=== PATIENT | male | born 1940 | race Caucasian/White ===

== ENCOUNTER → 2017-07-07 11:01 | Outpatient (CLI) | payer MEDICARE, SELFPAY ==
[2017-07-07 12:43] LABS: Absolute Lymphocyte Count 0.74 X10^3/ul (0.83-4.51); Absolute Neutrophil Count 2.1 X10^3/uL (2.0-7.7); Basophil# 0.03 X10^3/uL; Basophil% 0.9 % (0-1); Eosinophil# 0.08 X10^3/uL; Eosinophils% 2.4 % (0-5); Hematocrit 40.7 % (40-54); Hemoglobin 13.5 g/dl (13.0-16.5); Lymphocyte # 0.74 X10^3/ul (4.0); Lymphocyte % 22.2 % (19-41); Mean Corp Hgb Conc 33.2 g/gl (32-36); Mean Corpuscular Volume 93.6 fL (80-94); Mean Platelet Vol. 11.9 fl (6.2-12.0); Monocyte# 0.36 X10^3/uL; Monocyte% 10.8 % (0-10); Neutrophil # 2.12 X10^3/uL (2.7-7.7); Neutrophil % 63.4 % (47-70); Platelet Count 133 K/mm3 (150-450); RBC Distribution Width CV 13.4 % (11.6-14.6); RBC Distribution Width SD 46.1 fl (35.1-43.9); Red Blood Count 4.35 M/mm3 (4.6-6.2); White Blood Count 3.3 K/mm3 (4.4-11.0)
[2017-07-07 12:54] LABS: POSITIVE COUNT NO; POSITIVE DIFFERENTIAL NO
[2017-07-07 12:55] LABS: POSITIVE MORPHOLOGY NO
[2017-07-07 13:17] LABS: Vitamin D,25 Hydroxy 20.3 ng/mL (29.95-100.01)
[2017-07-07 13:23] LABS: ALB/GLOB Ratio 1.3 RATIO (0.9-2.4); AST(SGOT) 22 U/L (15-37); Alanine Aminotransfer ALT/SGPT 32 U/L (16-61); Alkaline Phosphatase 102 U/L (45-117); Anion Gap 8 (5-15); BUN 17 mg/dL (7-18); BUN/Creat Ratio 13.4 RATIO (10-20); Chloride 110 mmol/L (98-107); Creatinine, Serum 1.27 mg/dL (0.70-1.30); EST Glomerular Filtration Rate 58 mL/min (>60); Est Glom Filt Rate - Afr Amer 70 mL/min (>60); Glucose 110 mg/dL (74-106); Potassium 4.1 mmol/L (3.5-5.1); Sodium Level 143 mmol/L (136-145); Thyroid Stim Hormone (TSH) 1.27 uIU/mL (0.358-3.74)
== END ==
PROVIDERS: Family Provider Family Medicine Geriatric Medicine; PCP Family Medicine Geriatric Medicine; Visit Provider Family Medicine Geriatric Medicine
DX: E11.9 Type 2 diabetes mellitus without complications (principal); E55.9 Vitamin D deficiency, unspecified; I10 Essential (primary) hypertension
CPT/HCPCS: 36415; 80053; 82306; 84443; 85025

== ENCOUNTER → 2018-01-05 11:16 | Outpatient (CLI) | payer MEDICARE, SELFPAY ==
[2018-01-05 12:44] LABS: Absolute Lymphocyte Count 0.77 X10^3/ul (0.83-4.51); Absolute Neutrophil Count 2.3 X10^3/uL (2.0-7.7); Basophil# 0.03 X10^3/uL; Basophil% 0.8 % (0-1); Eosinophil# 0.08 X10^3/uL; Eosinophils% 2.2 % (0-5); Hemoglobin 13.8 g/dl (13.0-16.5); Lymphocyte # 0.77 X10^3/ul (4.0); Lymphocyte % 21.3 % (19-41); Mean Corp Hgb Conc 32.9 g/gl (32-36); Mean Corpuscular Hgb 31.7 pg (27.0-32.0); Mean Corpuscular Volume 96.3 fL (80-94); Mean Platelet Vol. 11.7 fl (6.2-12.0); Neutrophil # 2.34 X10^3/uL (2.7-7.7); Neutrophil % 64.7 % (47-70); Platelet Count 144 K/mm3 (150-450); RBC Distribution Width CV 13.4 % (11.6-14.6); RBC Distribution Width SD 47.7 fl (35.1-43.9); Red Blood Count 4.36 M/mm3 (4.6-6.2); White Blood Count 3.6 K/mm3 (4.4-11.0)
[2018-01-05 12:49] LABS: POSITIVE COUNT NO; POSITIVE DIFFERENTIAL NO; POSITIVE MORPHOLOGY NO
[2018-01-05 12:58] LABS: ALB/GLOB Ratio 1.2 RATIO (0.9-2.4); AST(SGOT) 22 U/L (15-37); Alanine Aminotransfer ALT/SGPT 35 U/L (16-61); Albumin, Serum 3.8 g/dL (3.2-5.0); Alkaline Phosphatase 100 U/L (45-117); Anion Gap 10 (5-15); BUN 16 mg/dL (7-18); Calcium,Total 8.8 mg/dL (8.5-10.1); Chloride 107 mmol/L (98-107); Creatinine, Serum 1.23 mg/dL (0.70-1.30); EST Glomerular Filtration Rate 60 mL/min (>60); Est Glom Filt Rate - Afr Amer 73 mL/min (>60); Globulin 3.2 g/dL (2.2-4.2); Glucose 135 mg/dL (74-106); Potassium 4.3 mmol/L (3.5-5.1); Sodium Level 142 mmol/L (136-145); Thyroid Stim Hormone (TSH) 1.59 uIU/mL (0.358-3.74); Uric Acid 3.9 mg/dL (3.5-7.2)
--- OUTSIDE RECORDS SUMMARY | 2018-03-02 19:49 | XMS RPT_ITS ---
:1940 Author Organization OHIP Care Team Providers Name Role Phone LEE HERRERA, DR. GARDINER Attending Unavailable TRAY HERRERA, DR. 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 Tray, Chris Chi Active Brad diabetes mellitus [facility] complications / Repository E11.9(ICD-10) PROCEDURES PROCEDURES No Procedure Records FoundRESULTS RESULTS CBC W/DIFF, AUTOMATED Collected: 01/05/2018 Status: F Source: [place] 11:17 AM [facility] REPOSITORY TYPE CODE TESTS RESULT OUT OF RANGE REFERENCE UNITS LAB L100.1000 4.4-11.0 K/mm3 Low WBC 3.6 LAB L100.1200 4.6-6.2 M/mm3 Low RBC 4.36 LAB L100.1300 13.0-16.5 g/dl Normal HGB 13.8 LAB L100.1400 40-54 % Normal HCT 42.0 LAB L100.1500 80-94 fL High MCV 96.3 LAB L100.1600 27.0-32.0 pg Normal MCH 31.7 LAB L100.1700 32-36 g/gl Normal MCHC 32.9 LAB L100.1810 11.6-14.6 % Normal RDW CV 13.4 LAB L100.1820 35.1-43.9 fl High RDW SD 47.7 LAB L100.1900 150-450 K/mm3 Low PLT 144 LAB L100.2000 6.2-12.0 fl Normal MPV 11.7 LAB L100.2100 47-70 % Normal NEUT% 64.7 LAB L100.2200 19-41 % Normal LY% 21.3 LAB L100.2300 0-10 % High MONO% 11.0 LAB L100.2400 0-5 % Normal EO% 2.2 LAB L100.2500 0-1 % Normal BASO% 0.8 LAB L100.2550 0.0-0.9 % Normal IM GRAN % 0.000 Result Comment: IG% - Immature Granulocytes (promyelocytes, myelocytes and metamyelocytes) > 1% indicates that a LEFT SHIFT is Present. LAB L100.2620 2.0-7.7 X10 3/uL Normal Absolute Neut 2.3 LAB L100.2720 0.83-4.51 X10 3/ul Low Absolute Lymph 0.77 Performed By: #### L100.0100 #### [facility] [address] [place], [place], [address] VITAMIN D,25 HYDROXY Collected: 01/05/2018 Status: F Source: [place] 11:17 [facility] REPOSITORY TYPE CODE TESTS RESULT OUT OF REFERENCE UNITS RANGE LAB L506.1000 29.95-100.01 ng/mL Low Vitamin D 18.0 25-OH Result Comment: Vitamin D 25(OH) Status Range Deficiency <20 ng/mL (50nmol/L) Insuffciency 20 - 30 ng/mL (50 - 75 nmol/L) Sufficiency 30 - 100 ng/mL (75 - 250 nmol/L) Toxicity >100 ng/mL (>250 nmol/L) Performed By: #### L506.1000, L509.3000 #### [facility] [address] [place], [place], [address] TESTOSTERONE, SERUM TOTAL Collected: 01/05/2018 Status: F Source: [place] 11:17 AM [facility] REPOSITORY TYPE CODE TESTS RESULT OUT OF REFERENCE UNITS RANGE LAB L509.3000 ng/dL Testosterone Normal 293.83 Result Comment: NORMAL REFERENCE RANGES MALE AGE <50 123.06 - 813.86 ng/dL MALE AGE >50 89.98 - 780.10 ng/dL FEMALE PREMENOPAUSE AGE 21 - 60 9.01 - 47.94 ng/dL FEMALE POSTMENOPAUSE AGE 45 - 89 <7.00 - 45.62 ng/dL REFERENCE RANGE AND METHODOLOGY CHANGED 01/27/2017 Performed By: #### L506.1000, L509.3000 #### [facility] [address] [place], [address] COMPREHENSIVE METABOLIC Collected: 01/05/2018 Status: F Source: [facility] 11:17 AM [facility] REPOSITORY TYPE CODE TESTS RESULT OUT OF RANGE REFERENCE UNITS LAB L501.0100 74-106 mg/dL High GLU 135 Result Comment: Fasting Glucose result greater than or equal to 126 mg/dL suggests DIABETES MELLITUS per A.D.A. criteria. Please note revised GLUCOSE reference range effective 2017. LAB L501.1000 7-18 mg/dL Normal BUN 16 LAB L501.1100 0.70-1.30 mg/dL Normal CREAT,SERUM 1.23 Result Comment: The validity of the calculated GFR AND GFRAA in patients over 70 years has not been determined. Clinical correlation is essential. LAB L501.1110 >60 mL/min Normal EST GFR 60 Result Comment: Non- GFR Calc LAB L501.1115 >60 mL/min Normal EST GFR - AA 73 Result Comment: GFR Calc LAB L501.1300 10-20 RATIO Normal BUN/CRE 13.0 LAB L501.1500 6.4-8.2 g/dL T Normal PROT 7.0 LAB L501.1800 3.2-5.0 g/dL Normal ALB 3.8 LAB L501.1950 2.2-4.2 g/dL Normal GLOB 3.2 LAB L501.2000 0.9-2.4 RATIO Normal A/G 1.2 LAB L501.2200 8.5-10.1 mg/dL CA Normal 8.8 LAB L501.4100 15-37 U/L Normal AST 22 LAB L501.4305 45-117 U/L Normal ALK P 100 LAB L501.4405 16-61 U/L Normal ALT 35 LAB L501.4600 0.20-1.00 mg/dL T Normal BILI 0.60 LAB L501.5300 136-145 mmol/L NA Normal 142 LAB L501.5600 3.5-5.1 mmol/L K Normal 4.3 LAB L501.5900 98-107 mmol/L CL Normal 107 LAB L501.6100 21.0-32.0 mmol/L Normal CO2 25.0 LAB L501.6200 5-15 Normal GAP 10 Performed By: #### L500.4050, L501.1400, L501.9520 #### [facility] [address] [place], [place], [address] URIC ACID Collected: 01/05/2018 Status: F Source: [place] 11:17 AM [facility] REPOSITORY TYPE CODE TESTS RESULT OUT OF RANGE REFERENCE UNITS LAB L501.1400 3.5-7.2 mg/dL Normal URIC 3.9 Result Comment: The drugs N-Acetylcysteine and Metamizole may falsely depress this assay. Performed By: #### L500.4050, L501.1400, L501.9520 #### [facility] [address] [place], [place], [address] THYROID STIM HORMONE Collected: 01/05/2018 Status: F Source: [place] ([facility]) 11:17 AM [facility] REPOSITORY TYPE CODE TESTS RESULT OUT OF RANGE REFERENCE UNITS LAB L501.9520 0.358-3.74 uIU/mL Normal TSH 1.59 Performed By: #### L500.4050, L501.1400, L501.9520 #### [facility] [address] [place], [place], [address] FINAL SURGICAL Observed: 11/29/2017 Status: F Source: [facility] PATHOLOGY REPORT 11:22 AM [facility] REPOSITORY . Pathology Reports Accession: Collected Date/Time: Received Date/Time: Pathologist: [id number] 11/29/2017 11:22 EDT 11/30/2017 08:29 EDT MD DORIS ADNGELO Final Surgical Pathology Report DIAGNOSIS: A) TRANSVERSE COLON, BIOPSY: TUBULAR ADENOMA. B) COLON, HEPATIC FLEXURE, BIOPSY: TUBULAR ADENOMA. COMMENT: Gisela # [id number] CLINICAL INFORMATION: Procedure: COLONOSCOPY THROUGH STOMA WITH ARGON PLASMA COAGULATION, COLD AND HOT SNARE POLYP BIOPSIES, AND INK TATTOOING HEPATIC FLEXURE Preoperative diagnosis: HISTORY OF TRANSVERSE ADENOMA Postoperative diagnosis: SAME SPECIMEN: A POLYP, COLORECT- POLYPS TRANSVERSE B COLON, BX- BIOPSY HEPATIC FLEXURE - R/O ADENOMA, DYSPLASIA GROSS DESCRIPTION: A. Received in formalin labeled transverse colon polyps are several alberto glistening soft tissues ranging from 0.2-0.6 cm. TS -1 B. Received in formalin labeled hepatic flexure biopsy are several alberto glistening soft tissues ranging from 0.2-0.6 cm. TS -1 Dictated by Anali GALLARDO ([facility]) MICROSCOPIC DESCRIPTION: A&B) Slides reviewed. Electronically Signed by Pathology Report verified by [facility] Electronically signed by DORIS DANGELO MD Sign out Date: 12/01/2017 12:29 Performing Lab: [address] Performed By: #### SPFR #### [place] [address] CBC W/DIFF, AUTOMATED Collected: 07/07/2017 Status: F Source: [place] 11:03 AM [facility] REPOSITORY TYPE CODE TESTS RESULT OUT OF RANGE REFERENCE UNITS LAB L100.1000 4.4-11.0 K/mm3 Low WBC 3.3 LAB L100.1200 4.6-6.2 M/mm3 Low RBC 4.35 LAB L100.1300 13.0-16.5 g/dl Normal HGB 13.5 LAB L100.1400 40-54 % Normal HCT 40.7 LAB L100.1500 80-94 fL Normal MCV 93.6 LAB L100.1600 27.0-32.0 pg Normal MCH 31.0 LAB L100.1700 32-36 g/gl Normal MCHC 33.2 LAB L100.1810 11.6-14.6 % Normal RDW CV 13.4 LAB L100.1820 35.1-43.9 fl High RDW SD 46.1 LAB L100.1900 150-450 K/mm3 Low PLT 133 LAB L100.2000 6.2-12.0 fl Normal MPV 11.9 LAB L100.2100 47-70 % Normal NEUT% 63.4 LAB L100.2200 19-41 % Normal LY% 22.2 LAB L100.2300 0-10 % High MONO% 10.8 LAB L100.2400 0-5 % Normal EO% 2.4 LAB L100.2500 0-1 % Normal BASO% 0.9 LAB L100.2550 0.0-0.9 % Normal IM GRAN % 0.300 Result Comment: IG% - Immature Granulocytes (promyelocytes, myelocytes and metamyelocytes) > 1% indicates that a LEFT SHIFT is Present. LAB L100.2620 2.0-7.7 X10 3/uL Normal Absolute Neut 2.1 LAB L100.2720 0.83-4.51 X10 3/ul Low Absolute Lymph 0.74 Performed By: #### L100.0100 #### [facility] [address] [place], [place], [address] VITAMIN D,25 HYDROXY Collected: 07/07/2017 Status: F Source: [place] 11:03 [facility] REPOSITORY TYPE CODE TESTS RESULT OUT OF REFERENCE UNITS RANGE LAB L506.1000 29.95-100.01 ng/mL Low Vitamin D 20.3 25-OH Result Comment: Vitamin D 25(OH) Status Range Deficiency <20 ng/mL (50nmol/L) Insuffciency 20 - 30 ng/mL (50 - 75 nmol/L) Sufficiency 30 - 100 ng/mL (75 - 250 nmol/L) Toxicity >100 ng/mL (>250 nmol/L) Performed By: #### L506.1000 #### [facility] [address] [place], [address] COMPREHENSIVE METABOLIC Collected: 07/07/2017 Status: F Source: [facility] 11:03 AM [facility] REPOSITORY TYPE CODE TESTS RESULT OUT OF RANGE REFERENCE UNITS LAB L501.0100 74-106 mg/dL High GLU 110 Result Comment: Fasting Glucose result from 100 to 125 mg/dL suggests IMPAIRED HOMEOSTASIS per A.D.A. criteria. Please note revised GLUCOSE reference range effective 2017. LAB L501.1000 7-18 mg/dL Normal BUN 17 LAB L501.1100 0.70-1.30 mg/dL Normal CREAT,SERUM 1.27 Result Comment: The validity of the calculated GFR AND GFRAA in patients over 70 years has not been determined. Clinical correlation is essential. LAB L501.1110 >60 mL/min Low EST GFR 58 Result Comment: Non- GFR Calc LAB L501.1115 >60 mL/min Normal EST GFR - AA 70 Result Comment: GFR Calc LAB L501.1300 10-20 RATIO Normal BUN/CRE 13.4 LAB L501.1500 6.4-8.2 g/dL T Normal PROT 7.0 LAB L501.1800 3.2-5.0 g/dL Normal ALB 4.0 LAB L501.1950 2.2-4.2 g/dL Normal GLOB 3.0 LAB L501.2000 0.9-2.4 RATIO Normal A/G 1.3 LAB L501.2200 8.5-10.1 mg/dL CA Normal 9.0 LAB L501.4100 15-37 U/L Normal AST 22 LAB L501.4305 45-117 U/L Normal ALK P 102 LAB L501.4405 16-61 U/L Normal ALT 32 LAB L501.4600 0.20-1.00 mg/dL T Normal BILI 0.60 LAB L501.5300 136-145 mmol/L NA Normal 143 LAB L501.5600 3.5-5.1 mmol/L K Normal 4.1 LAB L501.5900 98-107 mmol/L High CL 110 LAB L501.6100 21.0-32.0 mmol/L Normal CO2 25.0 LAB L501.6200 5-15 Normal GAP 8 Performed By: #### L500.4050, L501.9520 #### [facility] [address] [place], [place], [id number] THYROID STIM HORMONE Collected: 07/07/2017 Status: F Source: [place] ([facility]) 11:03 AM [facility] REPOSITORY TYPE CODE TESTS RESULT OUT OF RANGE REFERENCE UNITS LAB L501.9520 0.358-3.74 uIU/mL Normal TSH 1.27 Performed By: #### L500.4050, L501.9520 #### [facility] [address] [place], [address] ALLERGIES ALLERGIES No Allergies Records FoundENCOUNTERS ENCOUNTERS ADMIT/DISCHARGE ACCOUNT NUMBER ADMITTING ENCOUNTER LOCATION SOURCE CLASS 01/05/2018 [id number] Ambulatory [facility] ding:[id number] Repository 11/29/2017/11/30/19 [id number] Ambulatory BBuilding:[address] Repository 07/07/2017 [id number] Ambulatory [facility] ding:[id number] Repository PAYERS PAYERS ENCOUNTER GUARANTOR PAYER SUBSCRIBER SOURCE 01/05/2018 HARSH Akhtar Primary [place]SH [place] [id number] Insurance:AETNA MUSCHDOB: [facility] [place]: [id number] [id number] Repository [address]Izl: [phone]) Date:[id number] [phone] () [id number] LEILA ORR [id number]: 01/05/2018 [facility]LF [facility] Number: Effective Repository Date:2018-01-05 11/29/2017 HARSH MUSCHDOB: [facility] [id number] W Insurance:AETNA [id number] Foundation [facility] [address] [employer] HMO [address] [place], [place] AMEPolicy Number: [place], [place] [address]Dgk: 419 [id number]: () Date:2017-11-02 [phone] ()Tel: ([phone]) Name:[facility] [id number] [id number] () LE[place] [id number]: 07/07/2017 HARSH Akhtar Primary HARSH [place] [id number] Insurance:AETNA MUSCHDOB: [facility] Number: [id number] [place], [place] [id number] Repository [id number]: ([phone]) Date:[id number] [phone] ([place]) [id number] LEILA ORR [id number]: 07/07/2017 Secondary NOT GIVENUNK [place] Insurance:SELF PAY [facility] Number: Effective Repository Date:2017-07-07
== END ==
PROVIDERS: Family Provider Family Medicine Geriatric Medicine; PCP Family Medicine Geriatric Medicine; Visit Provider Family Medicine Geriatric Medicine
DX: E11.9 Type 2 diabetes mellitus without complications (principal); I10 Essential (primary) hypertension; E55.9 Vitamin D deficiency, unspecified; E23.6 Other disorders of pituitary gland; M10.9 Gout, unspecified
CPT/HCPCS: 36415; 80053; 82306; 84403; 84443; 84550; 85025

== ENCOUNTER → 2018-07-11 08:49 | Outpatient (CLI) | payer MEDICARE, SELFPAY ==
[2018-07-11 12:35] LABS: Absolute Lymphocyte Count 0.96 X10^3/ul (0.83-4.51); Absolute Neutrophil Count 2.3 X10^3/uL (2.0-7.7); Basophil# 0.03 X10^3/uL; Basophil% 0.8 % (0-1); Eosinophil# 0.11 X10^3/uL; Eosinophils% 2.9 % (0-5); Hematocrit 41.4 % (40-54); Lymphocyte # 0.96 X10^3/ul (4.0); Mean Corp Hgb Conc 33.8 g/gl (32-36); Mean Corpuscular Volume 91.6 fL (80-94); Monocyte# 0.45 X10^3/uL; Monocyte% 11.7 % (0-10); Neutrophil # 2.29 X10^3/uL (2.7-7.7); Neutrophil % 59.6 % (47-70); Platelet Count 141 K/mm3 (150-450); RBC Distribution Width CV 14.4 % (11.6-14.6); RBC Distribution Width SD 47.2 fl (35.1-43.9); Red Blood Count 4.52 M/mm3 (4.6-6.2); White Blood Count 3.8 K/mm3 (4.4-11.0)
[2018-07-11 12:47] LABS: POSITIVE COUNT NO; POSITIVE DIFFERENTIAL NO; POSITIVE MORPHOLOGY NO
[2018-07-11 12:57] LABS: Vitamin D,25 Hydroxy 18.2 ng/mL (29.95-100.01)
[2018-07-11 13:06] LABS: ALB/GLOB Ratio 1.2 RATIO (0.9-2.4); AST(SGOT) 23 U/L (15-37); Alanine Aminotransfer ALT/SGPT 38 U/L (16-61); Albumin, Serum 3.8 g/dL (3.2-5.0); Alkaline Phosphatase 99 U/L (45-117); Anion Gap 11 (5-15); BUN 17 mg/dL (7-18); BUN/Creat Ratio 13.8 RATIO (10-20); Calcium,Total 8.9 mg/dL (8.5-10.1); Chloride 107 mmol/L (98-107); Creatinine, Serum 1.23 mg/dL (0.70-1.30); EST Glomerular Filtration Rate 60 mL/min (>60); Est Glom Filt Rate - Afr Amer 73 mL/min (>60); Globulin 3.1 g/dL (2.2-4.2); Glucose 126 mg/dL (74-106); Potassium 3.9 mmol/L (3.5-5.1); Protein, Total 6.9 g/dL (6.4-8.2); Sodium Level 141 mmol/L (136-145)
== END ==
PROVIDERS: Family Provider Family Medicine Geriatric Medicine; PCP Family Medicine Geriatric Medicine; Visit Provider Family Medicine Geriatric Medicine
DX: E11.9 Type 2 diabetes mellitus without complications (principal); I10 Essential (primary) hypertension; E55.9 Vitamin D deficiency, unspecified
CPT/HCPCS: 36415; 80053; 82306; 84443; 85025

== ENCOUNTER 2018-10-01 21:06 | Emergency (ER) | payer MEDICARE, SELFPAY ==
[2018-10-01 21:07] VITALS: BP 165/108; PULSE 81; RESP 20; TEMP 36.4; O2SAT 95; BMI 31.6
--- NOTE | 2018-10-01 21:28 | RAD_ITS ---
STUDY: X-RAY - LEFT WRIST REASON FOR EXAM: Male, 78 years old. Fall and pain TECHNIQUE: 3 view(s) of the wrist were obtained. COMPARISON: None. FINDINGS: Comminuted intra-articular fracture of the distal radius. Fracture of the ulnar styloid. Soft tissue swelling. Carpal rows are normally aligned. RAD/Wrist min 3 Views IMPRESSION: Comminuted intra-articular fracture of the distal radius. Fracture of the ulnar styloid. Electronically Signed: Luis Miguel Garcia MD at 21:46 EDT Tel , Service support ,
--- NOTE | 2018-10-01 21:28 | ED.DCSUM_ITS ---
History of Present Illness Chief Complaint: Fall Detail of Chief Complaint: Left side of body hurts Informant: Patient - Fell September 28Wednesday. Context: Sudden Onset Timing: Continuous Quality: Pain Location: Left upper extremity predominantly Current Severity: Mild Maximum Severity: Moderate Worsened by: Use of left upper extremity Relieved by: Nothing Associated Symptoms: No associated symptoms Narrative: Patient is an elderly male who fell down to cement steps going into his garage. He landed on his left side. He presents today because the ibuprofen is not alleviating the pain. He did have head trauma. He denies loss of conscious. Denies headache. He denies nausea vomiting. Denies neck pain. He denies paresthesia, anesthesia motor he is on no anticoagulant. He denies cardiac respiratory symptoms. He denies hematemesis, melena hematochezia. He denies change in color his urine. He states his left upper extremity is now black and blue. He first noted it today. He also complained of left wrist pain when I palpated his left upper extremity. He was unaware that he has a deformity to his left wrist. Prior similar symptoms: No Recent Illness/Hospitalization: No - Past Medical History (1) Elevated blood pressure reading Status: Acute Past Medical History - Allergies and Home Meds Allergies/Adverse Reactions: Allergies Tetanus Vaccines and Toxoid Allergy (Verified 10/01/18 21:07) Angioedema Primary Care Physician: Chris Feliz Chi, MD [Primary Care Provider] - Prior records reviewed: Yes Surgical History: no surgical history, tonsillectomy colectomy Lives: Alone Smoking Status: Former smoker Alcohol: None Drugs: None Review of Systems General: Denies: Chills, Fever, Malaise, Subjective, Sweats Eyes: Denies: Visual changes - bilaterally, Blurred Vision - bilaterally, D iplopia ENT: Denies: Bilateral ear pain, Rhinorrhea Cardiovascular: Denies: Chest pain, Palpitations Respiratory: Denies: Dyspnea, Cough, Sputum, Dyspnea on exertion Gastrointestinal: Denies: Abdominal pain, Nausea, Vomiting, Diarrhea, Constipation, Melena, Hematochezia Genitourinary: Denies: Dysuria, Hematuria, Frequency Musculoskeletal: Reports: Swelling, Extremity Pain. Denies: Myalgias, Arthralgias, Neck pain, Back pain, -, - Skin: Denies: Rash, Wounds Neurological: Denies: Headache, Weakness, Numbness Hematologic: Reports: Easy bruising, Easy bleeding Allergy: Reports: Uticaria, Swelling of the mouth Physical Exam Vital Signs/Narrative: Vital Signs Temp Pulse Resp BP Pulse Ox 10/01/18 21:07 97.6 F L 81 20 H 165/108 H 95 Inital Vital Signs reviewed: Yes General: Well nourished, Well developed, No Acute Distress Head: Normocephalic, Trauma, Tenderness - Superior lateral left eyebrow Eyes: Perrl, EOMI, - - Subconjunctival hemorrhage noted. There is periorbital ecchymosis.. Negative for: Pale conjunctiva, Scleral icterus ENT: Moist mucous membranes, No rhinorrhea, TM's clear Neck: Supple, Nontender, No lymphadenopathy, No JVD, - - No cervical spine tenderness and full active range of motion without discomfort or hesitation. Cardiovascular: Regular rate, Regular rhythm, No murmurs, Normal S1, Normal S2 Respiratory: No distress, CTA bilaterally, Chest nontender Abdomen: Soft, Nontender, Nondistended, Normal bowel sounds Back: Nontender, Normal Inspection Extremities: Nontender, No edema Skin: Normal color, No rash, Trauma. Negative for: Cyanosis, Diaphoresis, Leandro dice Neurological: Alert, Oriented x3, Cranial nerves II-XII grossly intact, Normal Strength, Normal Sensation, Normal DTR Psychological: Normal affect, Normal Mood Diagnostic/Tx/Re-eval Chest X-Ray - ED: Read by ED Physician, - - Three-view x-ray of the left wrist not right as marked by the tach reveals a distal transverse comminuted radial fracture with involvement of the ulnar styloid. There is 10 degrees of volar apex angulation. - Medical Decision Making Since patient had no loss of consciousness, is on no anticoagulant and the fact is happened 72 hours ago imaging of the brain was not obtained. C-spine was cleared per Nexus criteria. Since patient has pain and deformity of the left wrist will obtain x-ray to evaluate for fracture. Reduction film reveals good length and alignment on the AP view. Lateral appears in neutral position. Oblique shows a fragment ulnarly which appears displaced. Contacted Dr. virgil dowell is on-call for orthopedics. Requested patient to contact office for follow-up and will determine if patient needs operative intervention. Procedures - Lower Extremity Splints Lower Extremity Splint: Plaster, - - AP short arm splint applied by de Splint Fabrication: Fabricated Location: Left Procedure(s): Patient had a hematoma block placed. He was placed in finger traps and weight was added slowly. He appeared to have good length. He was removed from finger traps. Reduction was undertaken. Patient was placed in a short arm plaster AP splint. Postoperative films were obtained. ED Disposition - Plan for ED Patient: Disposition: Home or Assisted Living Diagnosis: Colles' fracture of left radius, initial encounter for closed fracture, Simple laceration of face Instructions: COLLES FRACTURE, Reduction Required, LACERATION, Old - Not Sutured Prescriptions: Hydrocodone Bitart/Apap 5-325 [Chualar 5MG-325MG] 1 tab PO Q6H PRN PRN 3 Days #10 tab PRN Reason: Pain Prescription Printed Referrals: Chris Feliz Chi, MD [Primary Care Provider] - Kwaku Vallejo DO [STAFF PHYSICIAN] - 3-5 Days Additional Instructions: Must keep wrist elevated above nose. Apply ice 20 to 30 minutes per application 6-8 times a day. Keep splint absolutely clean and dry. Contact Dr. virgil dowell's office on Wednesday to be seen. You may require surgery.
[2018-10-01] MEDS: HYDROcodone Bitartrate/Apap 5/325 Tablet PO (21:48)
--- NOTE | 2018-10-01 23:26 | RAD_ITS ---
HISTORY: LEFT wrist reduction XR Wrist Min 3 Views TECHNIQUE: 3 views # of images incl. paperwork: 4 COMPARISON: Prereduction exam 10/01/2018 at 9:31 PM FINDINGS: BONES/JOINTS: Post reduction film demonstrates no significant improvement of the alignment of comminuted distal radial fracture with displacement and dorsal angulation. Mildly displaced ulnar styloid process fracture is also unchanged. SOFT TISSUES: Plaster cast in place. No radiopaque foreign body. RAD/Wrist min 3 Views IMPRESSION: 1. Status post reduction without significant improved alignment of the comminuted distal radial fracture. at 0000 Reported and signed by: Kwaku Sharma MD Electronically Signed: Kwaku Sharma MD at 23:59 EDT Tel , Service support ,
[2018-10-02 00:01] VITALS: BP 166/75; PULSE 63; RESP 18; O2SAT 97
== END 2018-10-02 00:02 | disposition home or self-care (01) ==
PROVIDERS: Emergency Provider Emergency Medicine; Family Provider Family Medicine Geriatric Medicine; PCP Family Medicine Geriatric Medicine
DX: S52.532A Colles' fracture of left radius, initial encounter for closed fracture (principal); S52.612A Displaced fracture of left ulna styloid process, initial encounter for closed fracture; S01.81XA Laceration without foreign body of other part of head, initial encounter; S05.12XA Contusion of eyeball and orbital tissues, left eye, initial encounter; S05.11XA Contusion of eyeball and orbital tissues, right eye, initial encounter; H11.33 Conjunctival hemorrhage, bilateral; Z79.899 Other long term (current) drug therapy; W10.9XXA Fall (on) (from) unspecified stairs and steps, initial encounter; Y93.9 Activity, unspecified; Y92.008 Other place in unspecified non-institutional (private) residence as the place of occurrence of the external cause; Y99.9 Unspecified external cause status; R03.0 Elevated blood-pressure reading, without diagnosis of hypertension; Z87.891 Personal history of nicotine dependence
CPT/HCPCS: 25605; 73110; 99283

== ENCOUNTER → 2019-01-09 11:46 | Outpatient (CLI) | payer MEDICARE, SELFPAY ==
[2019-01-09 12:43] LABS: Absolute Neutrophil Count 2.3 X10^3/uL (2.0-7.7); Basophil# 0.03 X10^3/uL; Basophil% 0.8 % (0-1); Eosinophil# 0.22 X10^3/uL; Eosinophils% 5.6 % (0-5); Hematocrit 40.7 % (40-54); Hemoglobin 13.6 g/dL (13.0-16.5); Mean Corp Hgb Conc 33.4 g/dL (32-36); Mean Corpuscular Hgb 31.3 pg (27.0-32.0); Mean Corpuscular Volume 93.8 fL (80-94); Mean Platelet Vol. 11.9 fl (6.2-12.0); Monocyte# 0.47 X10^3/uL; NRBC Flagged by Analyzer 0 % (0-5); Neutrophil # 2.28 X10^3/uL (2.7-7.7); Neutrophil % 58.1 % (47-70); Platelet Count 138 K/mm3 (150-450); RBC Distribution Width CV 13.6 % (11.6-14.6); RBC Distribution Width SD 46.9 fl (35.1-43.9); Red Blood Count 4.34 M/mm3 (4.6-6.2); White Blood Count 3.9 K/mm3 (4.4-11.0)
[2019-01-09 13:03] LABS: ALB/GLOB Ratio 1.4 RATIO (0.9-2.4); AST(SGOT) 18 U/L (15-37); Alanine Aminotransfer ALT/SGPT 34 U/L (16-61); Albumin, Serum 3.8 g/dL (3.2-5.0); Alkaline Phosphatase 105 U/L (45-117); Anion Gap 8 (5-15); BUN 22 mg/dL (7-18); BUN/Creat Ratio 16.8 RATIO (10-20); Chloride 110 mmol/L (98-107); Creatinine, Serum 1.31 mg/dL (0.70-1.30); EST Glomerular Filtration Rate 56 mL/min (>60); Est Glom Filt Rate - Afr Amer 68 mL/min (>60); Globulin 2.8 g/dL (2.2-4.2); Glucose 130 mg/dL (74-106); Protein, Total 6.6 g/dL (6.4-8.2); Sodium Level 141 mmol/L (136-145); Thyroid Stim Hormone (TSH) 2.35 uIU/mL (0.358-3.74); Uric Acid 4.5 mg/dL (3.5-7.2)
[2019-01-10 14:55] LABS: Vitamin D,25 Hydroxy 24.4 ng/mL (29.95-100.01)
== END ==
PROVIDERS: Family Provider Family Medicine Geriatric Medicine; PCP Family Medicine Geriatric Medicine; Visit Provider Family Medicine Geriatric Medicine
DX: E11.9 Type 2 diabetes mellitus without complications (principal); I10 Essential (primary) hypertension; M10.9 Gout, unspecified; E55.9 Vitamin D deficiency, unspecified; F52.8 Other sexual dysfunction not due to a substance or known physiological condition
CPT/HCPCS: 36415; 80053; 82306; 84403; 84443; 84550; 85025

== ENCOUNTER 2019-01-25 10:00 | Outpatient (RCR) | payer MEDICARE, SELFPAY ==
--- NOTE | 2018-12-08 15:51 | HP.OTEVAL_ITS ---
Patient's Visit Information HARSH DIAZ is a 78 year old M, referred to Occupational Therapy by Kwaku Vallejo DO, with a diagnosis of left wrist distal radius fx. Date of Evaluation: 12/07/18 Occupational Therapist: THERESA Arana/Ilda, CHT - Subjective Subjective: This 78 year old male was seen for OT eval following a left wrist fx. pt states he sufferd a fall on 10/01/18. states he was casted and given wrist brace on 11/30/18. Pt reports he has not removed brace off his left wrist. He is worried about what he can and can not do- pt reports he is limited with ADls and IADls at this time. - ADLs Dressing: Pants Fasteners: Tie shoes, Buttons, Zippers, [place], Belt Bathing: Handle washcloth & soap Kitchen: Open jars, Open bottle caps - Pain left wrist 2 Pain Intensity Range: 1, 5 - ROM Forearm: right 60 left 40 Wrist: right 65/45 left 35/25 ROM Comments: pt demo 1 away from composite fist . 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 Pt will demo an increase in lateral and tripod pinch by 4# to increase pts independent with opening baggies, containers at PLOF by D/C. Goal:: Pt will demo left wrist flexion,extension ROM by 30* to increase pts ind. with ADls and IADLS by d/c Goal:: pt will report pain no greater than 1/10 with use of left UE with ADls and IADLS by d/c - Rehabilitation General Assessment: pt demo with limited functional left wrist ROM and strength- pt would benefit from skilled OT services 1-2x week for 6 weeks to return pt to PLOF with ADLs and IADLS. Today pt was ed.on use of left wist brace use,donning,and doffing. Pt also ed. on finger ROM tendon glide, wrist short arch AROM, therapy will progress pt as oren. with ROM and strength. pt was given handout on HEP and agree to POC. Rehabilitation Potential: Good - Anticipated Interventions Anticipated Interventions: A/AAROM/PROM, Strengthening, Triggerpoint Release, Modalities, Joint Protection/Energy Conservation, Ergonomic Education - Visit Plan Frequency: 1-2x /Week Duration: 6 Weeks TEXT: Thank you for the opportunity to evaluate your patient. For Medicare and Medicare HMO plans, please review the plan of care and approve it. It will need to be FAXED BACK to us at [phone] for Medicare purposes. Please let me know if there are questions or concerns regarding this plan of care. Physician Signature: Date:
--- NOTE | 2019-01-11 10:32 | OTREVAL_ITS ---
Kwaku Vallejo, DO, It has been my pleasure to treat HARSH DIAZ over the last 6 visits for left wrist distal radius fx. Please see the progress note below for an update on the occupational therapy plan of care! 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 Objective/Function: left 50/30. left forearm supination 55*right is 60*. pt demo the ability to form a composite fist. left electro mechanical solar technician strength 45#. left lateral pinch 18# a increase from 14# left tripod pinch 15# a increase from 10# Plan Frequency: 1-2x /Week Duration: 3 Weeks Plan: cont with BTE to increase pts strength-. right electro mechanical solar technician is 100# left is 45# Goals - Goals Goal:: PT will demo an increase in electro mechanical solar technician strength by 30# to increase independent with basic occupations of daily living to return pt to PLOF by D/C. Pt will demo an increase in lateral and tripod pinch by 4# to increase pts independent with opening baggies, containers at PLOF by D/C. Goal:: Pt will demo left wrist flexion,extension ROM by 30* to increase pts ind. with ADls and IADLS by d/c Goal:: pt will report pain no greater than 1/10 with use of left UE with ADls and IADLS by d/c Anticipated Interventions Anticipated Interventions: A/AAROM/PROM, Strengthening, Triggerpoint Release, Modalities, Joint Protection/Energy Conservation, Ergonomic Education Please do not hesitate to contact me at [phone] by phone or if you have questions or concerns regarding this new plan of care! Sincerely, Raiza Stone, OTR/L, CHT
--- NOTE | 2019-01-25 10:30 | HP.OTDCSUM ---
HP - OT D/C Summary It has been my pleasure to treat HARSH DIAZ under orders from Kwaku Vallejo DO, for the diagnosis of left wrist distal radius fx for a total of 10 visit(s). Please see the following information for a summary of their discharge status. - Overall Improvement % Improvement: 85 - Objective Objective/Function: pt demo a increase in left hospitalist physician strength from 15# to 55#. left lateral pinch 14#. left tripod pinch 14#. left wrist 45/30. pt demo left forearm supination at 70*. pt demo understanding of his HEP and agree to D/C with cont. his ROM, ice and PRE as needed. - Goals Patient Goals: Regain Mobility, Regain Strength, Decrease Pain, Use Hand/Wrist/Arm Normally Again, Be More Independent in ADLS Goal:: PT will demo an increase in hospitalist physician strength by 30# to increase independent with basic occupations of daily living to return pt to PLOF by D/C. Pt will demo an increase in lateral and tripod pinch by 4# to increase pts independent with opening baggies, containers at PLOF by D/C. Goal:: Pt will demo left wrist flexion,extension ROM by 30* to increase pts ind. with ADls and IADLS by d/c Goal:: pt will report pain no greater than 1/10 with use of left UE with ADls and IADLS by d/c - Plan Plan: D/C - D/C Information Discharge Comments: pt was seen for 10 OT visits- to regain ROM and strength for ADLs and IADS. Pt has met goals in OT and will cont. with HEP of edema mtg, ROM and his PRE. If there are questions or concerns regarding this patient's occupational therapy, please fell free to call me at [phone]. Thank you for the referral of this patient. Sincerely, Raiza Stone, OTR/L, CHT
== END 2019-01-25 19:00 | disposition home or self-care (01) ==
LOC: OT 10:00
PROVIDERS: Family Provider Family Medicine Geriatric Medicine; PCP Family Medicine Geriatric Medicine; Referring Provider Orthopaedic Surgery; Visit Provider Orthopaedic Surgery
DX: S52.612D Displaced fracture of left ulna styloid process, subsequent encounter for closed fracture with routine healing (principal)
CPT/HCPCS: 97035; 97110; 97140; 97166; 97530

== ENCOUNTER → 2019-07-13 11:31 | Outpatient (CLI) | payer MEDICARE, SELFPAY ==
[2019-07-13 12:41] LABS: Absolute Lymphocyte Count 1.11 X10^3/uL (0.83-4.51); Basophil# 0.04 X10^3/uL; Eosinophil# 0.12 X10^3/uL; Eosinophils% 3.1 % (0-5); Hematocrit 40.5 % (40-54); Hemoglobin 13.6 g/dL (13.0-16.5); Lymphocyte # 1.11 X10^3/ul (4.0); Lymphocyte % 28.6 % (19-41); Mean Corp Hgb Conc 33.6 g/dL (32-36); Mean Corpuscular Hgb 32.7 pg (27.0-32.0); Mean Corpuscular Volume 97.4 fL (80-94); Mean Platelet Vol. 12.5 fl (6.2-12.0); Monocyte# 0.56 X10^3/uL; Monocyte% 14.4 % (0-10); NRBC Flagged by Analyzer 0 % (0-5); Neutrophil # 2.04 X10^3/uL (2.7-7.7); Neutrophil % 52.6 % (47-70); Platelet Count 139 K/mm3 (150-450); RBC Distribution Width CV 13.3 % (11.6-14.6); RBC Distribution Width SD 47.9 fl (35.1-43.9); Red Blood Count 4.16 M/mm3 (4.6-6.2); White Blood Count 3.9 K/mm3 (4.4-11.0)
[2019-07-13 12:58] LABS: Vitamin D,25 Hydroxy 18.6 ng/mL
[2019-07-13 13:02] LABS: ALB/GLOB Ratio 1.3 RATIO (0.9-2.4); AST(SGOT) 27 U/L (15-37); Alanine Aminotransfer ALT/SGPT 33 U/L (16-61); Albumin, Serum 3.9 g/dL (3.2-5.0); Alkaline Phosphatase 96 U/L (45-117); Anion Gap 10 (5-15); BUN 15 mg/dL (7-18); BUN/Creat Ratio 11.2 RATIO (10-20); Calcium,Total 8.9 mg/dL (8.5-10.1); Chloride 109 mmol/L (98-107); Creatinine, Serum 1.34 mg/dL (0.70-1.30); EST Glomerular Filtration Rate 54 mL/min (>60); Est Glom Filt Rate - Afr Amer 66 mL/min (>60); Globulin 3.1 g/dL (2.2-4.2); Glucose 123 mg/dL (74-106); Potassium 3.7 mmol/L (3.5-5.1); Sodium Level 143 mmol/L (136-145); Thyroid Stim Hormone (TSH) 2.18 uIU/mL (0.358-3.74); Uric Acid 4.7 mg/dL (3.5-7.2)
== END ==
PROVIDERS: PCP Family Medicine Geriatric Medicine; Visit Provider Family Medicine Geriatric Medicine
DX: E11.9 Type 2 diabetes mellitus without complications (principal); E23.6 Other disorders of pituitary gland; E55.9 Vitamin D deficiency, unspecified; I10 Essential (primary) hypertension; M10.9 Gout, unspecified
CPT/HCPCS: 36415; 80053; 82306; 84403; 84443; 84550; 85025

== ENCOUNTER → 2020-01-11 10:18 | Outpatient (CLI) | payer MEDICARE, SELFPAY ==
[2020-01-11 12:46] LABS: Absolute Lymphocyte Count 0.79 X10^3/uL (0.83-4.51); Basophil# 0.03 X10^3/uL; Basophil% 0.9 % (0-1); Eosinophils% 2.9 % (0-5); Hematocrit 41.9 % (40-54); Hemoglobin 13.7 g/dL (13.0-16.5); Lymphocyte # 0.79 X10^3/ul (4.0); Mean Corp Hgb Conc 32.7 g/dL (32-36); Mean Corpuscular Hgb 32.1 pg (27.0-32.0); Mean Corpuscular Volume 98.1 fL (80-94); Mean Platelet Vol. 12.4 fl (6.2-12.0); Monocyte# 0.51 X10^3/uL; Monocyte% 14.8 % (0-10); NRBC Flagged by Analyzer 0 % (0-5); Neutrophil % 58.1 % (47-70); Platelet Count 128 K/mm3 (150-450); RBC Distribution Width CV 13.2 % (11.6-14.6); RBC Distribution Width SD 47.1 fl (35.1-43.9); Red Blood Count 4.27 M/mm3 (4.6-6.2); White Blood Count 3.4 K/mm3 (4.4-11.0)
[2020-01-11 13:09] LABS: Vitamin D,25 Hydroxy 15.2 ng/mL
[2020-01-11 13:16] LABS: ALB/GLOB Ratio 1.2 RATIO (0.9-2.4); AST(SGOT) 22 U/L (15-37); Alanine Aminotransfer ALT/SGPT 37 U/L (16-61); Albumin, Serum 3.9 g/dL (3.2-5.0); Alkaline Phosphatase 114 U/L (45-117); Anion Gap 5 (5-15); BUN 14 mg/dL (7-18); BUN/Creat Ratio 11.9 RATIO (10-20); Chloride 108 mmol/L (98-107); Creatinine, Serum 1.18 mg/dL (0.70-1.30); EST Glomerular Filtration Rate 63 mL/min (>60); Est Glom Filt Rate - Afr Amer 76 mL/min (>60); Globulin 3.3 g/dL (2.2-4.2); Glucose 110 mg/dL (74-106); Potassium 3.7 mmol/L (3.5-5.1); Protein, Total 7.2 g/dL (6.4-8.2); Sodium Level 140 mmol/L (136-145); Thyroid Stim Hormone (TSH) 2.44 uIU/mL (0.358-3.74); Uric Acid 4.1 mg/dL (3.5-7.2)
== END ==
PROVIDERS: PCP Family Medicine Geriatric Medicine; Visit Provider Family Medicine Geriatric Medicine
DX: E11.9 Type 2 diabetes mellitus without complications (principal); E23.6 Other disorders of pituitary gland; E55.9 Vitamin D deficiency, unspecified; I10 Essential (primary) hypertension; M10.9 Gout, unspecified
CPT/HCPCS: 36415; 80053; 82306; 84403; 84443; 84550; 85025

== ENCOUNTER 2020-07-09 20:16 | Emergency (ER) | payer MEDICARE, SELFPAY ==
[2020-07-09 20:17] VITALS: BP 191/115; PULSE 106; RESP 16; TEMP 36.3; O2SAT 98; BMI 31.6
--- NOTE | 2020-07-09 21:23 | CT_ITS ---
HISTORY: Abdominal pain -- IV PO Contrast TECHNIQUE: Helically acquired images were obtained of the abdomen and pelvis following the intravenous administration of 100 ML of Isovue-370 Iodinated contrast. After a delay contiguous helical images were obtained from above the kidneys to the pubic symphysis. 2D reformats. Gastrografin oral contrast was administered. A radiation dose optimization technique was used for this scan. COMPARISON: X-ray of the abdomen from November 26, 2010. CT scan of the abdomen and pelvis from November 15, 2010. FINDINGS: # of images incl. paperwork: [id number] LUNG BASES: Trace age-related basilar fibrotic lung disease. Some coronary artery calcific ASCVD. CT abdomen: The stomach is distended with ingested contrast. Multilevel degenerative disc disease with facet arthropathy. Pseudoarticulation of several of the spinous processes within the upper and mid lumbar spine. If this disease is symptomatic, then it has been termed [place]'s disease. 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 Sacroiliac joint arthritis The gallbladder is distended. Liver, spleen, pancreas, and adrenal glands, are normal. The kidneys are normal. The aorta is severely diseased with atherosclerotic plaque. The severity of the disease within the abdominal aorta has progressed with aneurysmal dilatation and ulcerative plaque with in the soft plaque within the dilated lumen of the infrarenal abdominal aorta. The infrarenal abdominal aorta is aneurysmally distended to 3.4 cm. This is greater than the previous study. CT pelvis: No ascites is present. The appendix is not identified. The prostate gland is not enlarged. The bladder is is elongated. Within the dependent portion of the bladder there is some hyperdense material that is layering. This could be excreted contrast from a previous study as was demonstrated on the November 16, 2010 centimeters there is contrast in the bladder, but could also represent bladder stones. On the delayed imaging both kidneys are excreting contrast into nondilated systems with more excreted contrast present within the urinary bladder.. The patient continues to have a right hemiabdomen colostomy. No bowel obstruction is present. It appears that the rectum and downstream portions of the sigmoid colon and ascending colon have been resected. CT/Abdomen/Pelvis WITH Contrast IMPRESSION: 3.4 cm infrarenal abdominal aortic aneurysm new since the previous study of November 15, 2010 with increasing soft and calcific plaque. The raw ulcerations into the soft plaque within the aneurysm. Distended gallbladder. Previous sigmoid: And rectum resection with right hemiabdomen colostomy but without evidence of bowel obstruction. Probable bladder stones that do not appear to be causing obstruction. It is also possible these are calcifications within the wall of the bladder posteriorly. Individualized dose optimization techniques were used for this CT. at 2335 Reported and signed by: Rubens Wisdom MD Electronically Signed: Rubens Wisdom MD at 23:34 EDT Tel , Service support ,
[2020-07-09 22:04] LABS: Absolute Lymphocyte Count 0.53 X10^3/uL (0.83-4.51); Absolute Neutrophil Count 4.1 X10^3/uL (2.0-7.7); Basophil# 0.03 X10^3/uL; Basophil% 0.6 % (0-1); Eosinophil# 0.03 X10^3/uL; Eosinophils% 0.6 % (0-5); Hematocrit 39.7 % (40-54); Lymphocyte # 0.53 X10^3/ul (0.83-4.51); Lymphocyte % 10.5 % (19-41); Mean Corp Hgb Conc 32.7 g/dL (32-36); Mean Corpuscular Hgb 32.2 pg (27.0-32.0); Mean Corpuscular Volume 98.3 fL (80-94); Mean Platelet Vol. 12.1 fl (6.2-12.0); Monocyte% 7.9 % (0-10); NRBC Flagged by Analyzer 0 % (0-5); Neutrophil # 4.05 X10^3/uL (2.7-7.7); POSITIVE DIFFERENTIAL YES; Platelet Count 139 K/mm3 (150-450); RBC Distribution Width CV 13.9 % (11.6-14.6); RBC Distribution Width SD 50.2 fl (35.1-43.9); Red Blood Count 4.04 M/mm3 (4.6-6.2); White Blood Count 5.1 K/mm3 (4.4-11.0)
[2020-07-09 22:15] LABS: Differential Indicated SCAN CRITERIA MET
[2020-07-09 22:21] LABS: Bacteria 0 SEEN /hpf (None Seen); Color, Urine Yellow (Yellow); Glucose, Dipstick Normal (Normal); Ketone-Dipstick Negative (Negative); Leukocyte Esterase-Dipstick 25 /ul (Negative); Mucous, Urine 0 SEEN /hpf (<or=2+); Nitrite-Dipstick Negative (Negative); Occult Blood-Urine 10 /ul (Negative); Protein-Dipstick 30 mg/dl (Negative); Urine Bilirubin Dipstick Negative (Negative); Urine Clarity Sl. Cloudy (Clear); Urine Urobilinogen Normal (Normal)
[2020-07-09 22:22] LABS: ALB/GLOB Ratio 1.4 RATIO (0.9-2.4); AST(SGOT) 23 U/L (15-37); Alanine Aminotransfer ALT/SGPT 27 U/L (16-61); Albumin, Serum 4.1 g/dL (3.2-5.0); Alkaline Phosphatase 98 U/L (45-117); Anion Gap 7 (5-15); BUN 17 mg/dL (7-18); BUN/Creat Ratio 12.6 RATIO (10-20); Calcium,Total 8.9 mg/dL (8.5-10.1); Chloride 110 mmol/L (98-107); Creatinine, Serum 1.35 mg/dL (0.70-1.30); EST Glomerular Filtration Rate 54 mL/min (>60); Est Glom Filt Rate - Afr Amer 65 mL/min (>60); Glucose 121 mg/dL (74-106); Potassium 4.1 mmol/L (3.5-5.1); Protein, Total 7.1 g/dL (6.4-8.2); Sodium Level 143 mmol/L (136-145)
[2020-07-09 22:25] LABS: Amorphous Sediment 1+ URATE; Red Blood Cells-Urine 0-5 SEEN /hpf (0-5); Squamous Epithelial Cells - UA 0-5 SEEN /hpf (0-5); White Blood Cells 5-10 SEEN /hpf (0-5)
[2020-07-09 22:36] LABS: Lactic Acid 1.5 mmol/L (0.4-1.9)
[2020-07-09 22:43] LABS: Differential Comment SCANNED
[2020-07-09 23:14] VITALS: BP 186/94; PULSE 68; RESP 16; TEMP 36.3; O2SAT 98
--- NOTE | 2020-07-09 23:59 | EDS_ITS ---
HPI HPI - GI History of Present Illness Chief Complaint: Abd Pain Informant: patient Abdominal Pain/Flank Pain Onset: Today Context: Gradual Onset Timing: Waxes and wanes Quality: Cramping Location: Diffuse Worsened by: Nothing Relieved by: - (Laying flat on his back) Nausea/Vomiting/Emesis GI Symptom: Positive for Nausea and Vomiting Onset: Today Quality: Positive for Nonbilious; Negative for Coffee ground and Hematemesis Diarrhea/Melena/Hematochezia GI Symptom: Negative for Diarrhea, Melena and Hematochezia Associated Symptoms Associated Symptoms: Negative for Dysuria and Hematuria Narrative Narrative: Patient presents with nausea, vomiting, and abdominal pain that began today. Patient states he also felt like he was having some dizziness. Patient states this felt like a spinning sensation. Patient denies any hematemesis or coffee-ground emesis. Patient states his abdominal pain seemed to get better when he laid flat on his back. Patient states it has been waxing and waning. Patient states it is diffuse across his abdomen. Patient states it feels similar to the pain he had when he had a bowel obstruction. Patient states he has been having minimal output from his colostomy. Prior similar symptoms: Yes PFSH PFSH Medical History (Updated 07/10/20 @ 00:[address] Alberto Lara DO) [place] esophagus High cholesterol History of colorectal cancer Hypertension Macular degeneration Home Medications esomeprazole magnesium 40 mg PO DAILY 10/01/18 [History Last Taken Unknown] losartan 100 mg PO DAILY 10/01/18 [History Last Taken Unknown] rosuvastatin 40 mg PO DAILY 10/01/18 [History Last Taken Unknown] vit A,C and [id number] 1 ea PO BID 10/01/18 [History Last Taken Unknown] Allergy/AdvReac Type Severity Reaction Status Date / Time Tetanus Vaccines and Toxoid Allergy Angioedema Verified 07/09/20 20:17 Surgical History (Updated 07/10/20 @ 00:[address] Alberto Lara DO) History of colostomy History of right hemicolectomy Social History Smoking Status: Former smoker ROS ROS ED Constitutional Constitutional ED: Denies chills or fever(s) Eyes Eyes: Denies blurry vision or change in vision ENT ENT ED: Denies rhinorrhea or sore throat Cardiovascular Cardiovascular: Denies chest pain or palpitations Respiratory/Chest Respiratory/Chest: Denies cough or dyspnea Gastrointestinal Gastrointestinal: Reports abdominal pain, nausea and vomiting Genitourinary Genitourinary ED: Denies dysuria or hematuria Musculoskeletal Musculoskeletal: Denies back pain or neck pain Integumentary Denies abscess or rash Neurologic Neurologic: Denies headache(s) or weakness Allergic/Immunologic Allergic/Immunologic ED: Denies mouth swelling or urticaria EXAM Physical Exam Const Vital Signs: 07/09/20 20:17 07/09/20 23:14 Temperature 97.3 F L 97.4 F L Temperature Source Temporal Temporal Pulse Rate 106 H 68 Respiratory Rate 16 16 Blood Pressure 191/115 H 186/94 H Blood Pressure Mean 140 124 Pulse Ox 98 98 Oxygen Delivery Method Room Air Room Air Positive well nourished and well developed General Appearance ED: well developed HEENT Reports moist mucous membranes Neck supple and no JVD Resp normal respiratory effort and clear to auscultation bilaterally Cardio regular rate and regular rhythm GI Auscultation: hyperactive bowel sounds Palpation: soft and tender epigastric, LLQ, RLQ, LUQ, RUQ and suprapubic; Negative for guarding or rebound tenderness present Neuro CN's II-XII intact bilaterally, moves all extremities and no sensory deficits noted Sensorium / Orientation: alert, oriented to person, oriented to place and oriented to time Motor Exam: strength 5/5 throughout Psych mental status grossly normal MDM MDM MDM Narrative Medical decision making narrative: CBC and comprehensive metabolic profile were obtained and were essentially within normal limits. Lactate was normal. Urinalysis does not show any evidence of urinary tract infection. CT scan of the abdomen and pelvis was obtained. There is no evidence of bowel obstruction. There is a 3.4 cm infrarenal abdominal aortic aneurysm which is new compared to previous study from 11/15/2010. There is no acute intra-abdominal process. This was interpreted by the radiologist and reviewed by myself. Patient was advised of his findings. Patient was instructed to follow-up with his primary care physician for further evaluation. Patient understood and was agreeable with the plan. All questions were answered. Lab Data Attestation: I reviewed the patient's lab results. Labs: Laboratory Results - last 24 hr 07/09/20 07/09/20 07/09/20 21:58 21:58 22:02 WBC 5.1 RBC 4.04 L Hgb 13.0 Hct 39.7 L MCV 98.3 H MCH 32.2 H MCHC 32.7 RDW Std Deviation 50.2 H RDW Coeff of Wilmer 13.9 Plt Count 139 L MPV 12.1 H Immature Gran % (Auto) 0.400 Neut % (Auto) 80.0 H Lymph % (Auto) 10.5 L [place] % (Auto) 7.9 Eos % (Auto) 0.6 Baso % (Auto) 0.6 Absolute Neuts (auto) 4.1 Absolute Lymphs (auto) 0.53 L Nucleated RBC % 0 Differential Comment SCANNED Sodium 143 Potassium 4.1 Chloride 110 H Carbon Dioxide 26.0 Anion Gap 7 BUN 17 Creatinine 1.35 H Estim Creat Clear Calc 36.70 Est GFR (MDRD) Af Amer 65 Est GFR (MDRD) Non-Af 54 L BUN/Creatinine Ratio 12.6 Glucose 121 H Lactic Acid 1.5 Calcium 8.9 Total Bilirubin 0.70 AST 23 ALT 27 Alkaline Phosphatase 98 Total Protein 7.1 Albumin 4.1 Globulin 3.0 Albumin/Globulin Ratio 1.4 Urine Color Urine Clarity Urine pH Ur Specific [place] Urine Protein Urine Glucose (UA) Urine Ketones Urine Occult Blood Urine Nitrite Urine Bilirubin Urine Urobilinogen Ur Leukocyte Esterase Urine RBC Urine WBC Ur Squamous Epith Cells Amorphous Sediment Urine Bacteria Urine Mucus 07/09/20 22:14 WBC RBC Hgb Hct MCV MCH MCHC RDW Std Deviation RDW Coeff of [place] Plt Count MPV Immature Gran % (Auto) Neut % (Auto) Lymph % (Auto) [place] % (Auto) Eos % (Auto) Baso % (Auto) Absolute Neuts (auto) Absolute Lymphs (auto) Nucleated RBC % Differential Comment Sodium Potassium Chloride Carbon Dioxide Anion Gap BUN Creatinine Estim Creat Clear Calc Est GFR (MDRD) Af Amer Est GFR (MDRD) Non-Af BUN/Creatinine Ratio Glucose Lactic Acid Calcium Total Bilirubin AST ALT Alkaline Phosphatase Total Protein Albumin Globulin Albumin/Globulin Ratio Urine Color Yellow Urine Clarity Sl. Cloudy Urine pH 6.0 Ur Specific [place] 1.020 Urine Protein 30 H Urine Glucose (UA) Normal Urine Ketones Negative Urine Occult Blood 10 H Urine Nitrite Negative Urine Bilirubin Negative Urine Urobilinogen Normal Ur Leukocyte Esterase 25 H Urine RBC 0-5 SEEN Urine WBC 5-10 SEEN Ur Squamous Epith Cells 0-5 SEEN Amorphous Sediment 1+ URATE Urine Bacteria 0 SEEN Urine Mucus 0 SEEN Radiography Diagnostic Testing: Radiology Impression Abdomen/Pelvis CT 07/09/20 21:23 IMPRESSION: 3.4 cm infrarenal abdominal aortic aneurysm new since the previous study of November 15, 2010 with increasing soft and calcific plaque. The raw ulcerations into the soft plaque within the aneurysm. Distended gallbladder. Previous sigmoid: And rectum resection with right hemiabdomen colostomy but without evidence of bowel obstruction. Probable bladder stones that do not appear to be causing obstruction. It is also possible these are calcifications within the wall of the bladder posteriorly. Individualized dose optimization techniques were used for this CT. at 2335 Reported and signed by: Rubens Wisdom MD Electronically Signed: Rubens Wisdom MD at 23:34 EDT Tel , Service support , Discharge Plan Triage Chief Complaint: Abd Pain ED Provider: Alberto Lara Dx/Rx/DC Orders Clinical Impression: Abdominal pain in male Instructions: ED Unknown Causes of Abdominal ... Prescriptions: No Action losartan 100 MG tablet 100 mg PO DAILY RF: 0 esomeprazole magnesium 20 MG capsule,delayed release(DR/EC) 40 mg PO DAILY RF: 0 rosuvastatin 40 MG tablet 40 mg PO DAILY RF: 0 vit A,C and J-eygivl-vfvjknnx 1 EACH tablet 1 ea PO BID RF: 0 Primary Care Provider: Chris Feliz Chi Referrals: Chris Feliz Chi, MD [Primary Care Provider] - 5-7 Days Disposition Disposition: Home, self care
[2020-07-10 00:15] VITALS: BP 165/86; PULSE 78; RESP 17; TEMP 36.8; O2SAT 97
--- NOTE | 2020-07-10 00:20 | NURSING ---
patient is aweare to call dr arellano for follow up and monitor bps and return for [facility].
== END 2020-07-10 00:16 | disposition home or self-care (01) ==
PROVIDERS: Emergency Provider Emergency Medicine; PCP Family Medicine Geriatric Medicine
DX: R10.9 Unspecified abdominal pain (principal); I71.4 Abdominal aortic aneurysm, without rupture; I10 Essential (primary) hypertension; E78.00 Pure hypercholesterolemia, unspecified; Z93.3 Colostomy status; Z90.49 Acquired absence of other specified parts of digestive tract; Z79.899 Other long term (current) drug therapy; Z85.038 Personal history of other malignant neoplasm of large intestine; Z87.891 Personal history of nicotine dependence
CPT/HCPCS: 74177; 80053; 81001; 83605; 85025; 99283; Q9967; A4216

== ENCOUNTER → 2020-07-18 16:06 | Outpatient (CLI) | payer MEDICARE, SELFPAY ==
[2020-07-09 20:17] VITALS: BMI 31.6
[2020-07-18 17:17] LABS: Absolute Lymphocyte Count 0.77 X10^3/uL (0.83-4.51); Absolute Neutrophil Count 2.8 X10^3/uL (2.0-7.7); Basophil# 0.03 X10^3/uL; Basophil% 0.7 % (0-1); Eosinophil# 0.12 X10^3/uL; Eosinophils% 2.8 % (0-5); Hematocrit 40.9 % (40-54); Hemoglobin 13.6 g/dL (13.0-16.5); Lymphocyte # 0.77 X10^3/ul (0.83-4.51); Lymphocyte % 18.1 % (19-41); Mean Corp Hgb Conc 33.3 g/dL (32-36); Mean Corpuscular Hgb 32.2 pg (27.0-32.0); Mean Corpuscular Volume 96.9 fL (80-94); Mean Platelet Vol. 12.5 fl (6.2-12.0); Monocyte# 0.51 X10^3/uL; NRBC Flagged by Analyzer 0 % (0-5); Neutrophil # 2.82 X10^3/uL (2.7-7.7); Neutrophil % 66.4 % (47-70); Platelet Count 135 K/mm3 (150-450); RBC Distribution Width CV 13.4 % (11.6-14.6); RBC Distribution Width SD 48.1 fl (35.1-43.9); Red Blood Count 4.22 M/mm3 (4.6-6.2); White Blood Count 4.3 K/mm3 (4.4-11.0)
[2020-07-18 17:51] LABS: Vitamin D,25 Hydroxy 19.3 ng/mL
[2020-07-18 18:23] LABS: ALB/GLOB Ratio 1.2 RATIO (0.9-2.4); AST(SGOT) 19 U/L (15-37); Alanine Aminotransfer ALT/SGPT 25 U/L (16-61); Albumin, Serum 4.1 g/dL (3.2-5.0); Alkaline Phosphatase 95 U/L (45-117); Anion Gap 9 (5-15); BUN 17 mg/dL (7-18); BUN/Creat Ratio 10.9 RATIO (10-20); Calcium,Total 9.1 mg/dL (8.5-10.1); Chloride 109 mmol/L (98-107); Creatinine, Serum 1.56 mg/dL (0.70-1.30); EST Glomerular Filtration Rate 46 mL/min (>60); Est Glom Filt Rate - Afr Amer 55 mL/min (>60); Globulin 3.3 g/dL (2.2-4.2); Glucose 111 mg/dL (74-106); Potassium 3.8 mmol/L (3.5-5.1); Protein, Total 7.4 g/dL (6.4-8.2); Sodium Level 141 mmol/L (136-145); Thyroid Stim Hormone (TSH) 3.07 uIU/mL (0.358-3.74)
== END ==
PROVIDERS: PCP Family Medicine Geriatric Medicine; Visit Provider Family Medicine Geriatric Medicine
DX: E11.9 Type 2 diabetes mellitus without complications (principal); E55.9 Vitamin D deficiency, unspecified; I10 Essential (primary) hypertension
CPT/HCPCS: 36415; 80053; 82306; 84443; 85025

== ENCOUNTER → 2020-07-24 09:10 | Outpatient (CLI) | payer MEDICARE, SELFPAY ==
[2020-07-09 20:17] VITALS: BMI 31.6
--- NOTE | 2020-07-24 09:15 | ECHOD_ITS ---
Reason For Study: CUNHA Procedure This was a 2D Doppler, Color Flow transthoracic echocardiogram. Exam performed in department. Left Ventricle Normal LV size. Left ventricular systolic function is normal. The estimated ejection fraction is 55 %. Stage 1 diastolic dysfunction. No regional wall motion abnormalities noted. Right Ventricle Normal RV size. Normal systolic function. Atria Normal left atrium. Normal right atrium. Mitral Valve Normal mitral valve. Tricuspid Valve Normal tricuspid valve. Mild (1+) tricuspid valve insufficiency. Pulmonary artery systolic pressure is 35 mmHg. Aortic Valve Trisinus/trileaflet aortic valve. Pulmonic Valve The pulmonic valve is not well visualized. Great Vessels Moderately dilated aortic root. The pulmonary artery is normal size. Normal inferior vena cava. Pericardium/Pleural No pericardial effusion. MMode/2D Measurements & Calculations LVIDd: 4.0 cm IVSd: 1.3 cm Ao root diam: 4.6 cm LVIDs: 2.5 cm LVPWd: 1.0 cm LA dimension: 2.8 cm FS: 38.1 % LAV(MOD-bp): 35.4 ml LA A4 area: 13.5 cm2 RA A4 area: 11.7 cm2 LAV(MOD-bp) Indexed: 18.9 ml/m2 LAV(MOD-sp2): 37.7 ml LAV(MOD-sp4): 30.6 ml Time Measurements MV dec time: 0.38 sec Doppler Measurements & Calculations MV E max yuval: 66.0 cm/sec Lat Peak E' Yuval: 7.8 cm/sec Med Peak E' Yuval: 7.7 cm/sec MV A max yuval: 99.0 cm/sec E/E' lat: 8.4 E/E' med: 8.6 MV E/A: 0.67 MV V2 max: 99.8 cm/sec MV P1/2t max yuval: 68.5 cm/sec Ao V2 max: 108.4 cm/sec MV max P.0 mmHg MV P1/2t: 119.8 msec Ao max P.7 mmHg MV V2 mean: 48.7 cm/sec MV dec slope: 167.5 cm/sec2 MV mean P.1 mmHg MVA(P1/2t): 1.8 cm2 MV V2 VTI: 29.1 cm LV V1 max: 93.2 cm/sec PA V2 max: 96.3 cm/sec TR max yuval: 282.0 cm/sec LV V1 max P.5 mmHg TR max P.8 mmHg ECHO/Echo Complete Interpretation Summary Normal LV size. Left ventricular systolic function is normal. The estimated ejection fraction is 55 %. Stage 1 diastolic dysfunction. Pulmonary artery systolic pressure is 35 mmHg. Ordering Physician: Chris Feliz Referring Physician: Chris Feliz Chi Performed By: Shaka Navas RCS
== END ==
PROVIDERS: PCP Family Medicine Geriatric Medicine; Referring Provider Family Medicine Geriatric Medicine; Visit Provider Family Medicine Geriatric Medicine
DX: R06.89 Other abnormalities of breathing (principal)
CPT/HCPCS: 93306

== ENCOUNTER → 2020-07-26 07:59 | Outpatient (CLI) | payer MEDICARE, SELFPAY ==
[2020-07-09 20:17] VITALS: BMI 31.6
--- NOTE | 2020-07-26 13:33 | PFT ---
INTRODUCTION: The patient is an 80-year-old male that presents for pulmonary function studies secondary to a diagnosis of dyspnea. Respiratory therapy reports good patient effort. Bronchodilators were used during testing. INTERPRETATION: Forced expiration spirometry demonstrates no evidence of a large airways obstructive ventilatory defect. There was no significant response to aerosolized bronchodilators. Spirograms are of good quality and plateau normally. Body plethysmography was performed and revealed a borderline decreased TLC to 4.09 L, 80% of predicted, indicative of an early mild restrictive ventilatory impairment. Diffusing capacity by single breath CO, however, is within normal limits. IMPRESSION: Borderline mild restrictive ventilatory impairment with preserved diffusing capacity.
== END ==
PROVIDERS: PCP Family Medicine Geriatric Medicine; Referring Provider Family Medicine Geriatric Medicine; Visit Provider Family Medicine Geriatric Medicine
DX: R06.89 Other abnormalities of breathing (principal)
CPT/HCPCS: 94060; 94726; 94729

== ENCOUNTER → 2020-07-30 11:34 | Outpatient (CLI) | payer MEDICARE, SELFPAY ==
[2020-07-09 20:17] VITALS: BMI 31.6
[2020-07-30 12:49] LABS: Anion Gap 9 (5-15); BUN 33 mg/dL (7-18); BUN/Creat Ratio 19.2 RATIO (10-20); Calcium,Total 9.3 mg/dL (8.5-10.1); Chloride 104 mmol/L (98-107); Creatinine, Serum 1.72 mg/dL (0.70-1.30); EST Glomerular Filtration Rate 41 mL/min (>60); Est Glom Filt Rate - Afr Amer 49 mL/min (>60); Glucose 113 mg/dL (74-106); Potassium 4.3 mmol/L (3.5-5.1); Sodium Level 136 mmol/L (136-145)
== END ==
PROVIDERS: PCP Family Medicine Geriatric Medicine; Referring Provider Family Medicine Geriatric Medicine; Visit Provider Family Medicine Geriatric Medicine
DX: N17.9 Acute kidney failure, unspecified (principal)
CPT/HCPCS: 36415; 80048

== ENCOUNTER → 2020-08-02 12:16 | Outpatient (CLI) | payer MEDICARE, SELFPAY ==
[2020-07-09 20:17] VITALS: BMI 31.6
--- NOTE | 2020-08-02 12:17 | US_ITS ---
STUDY: RENAL ULTRASOUND - COMPLETE REASON FOR EXAM: Male, 80 years old. HYPERTENSION TECHNIQUE: Ultrasound evaluation of the kidneys was performed with real-time and static dalton-scale imaging. COMPARISON: None. FINDINGS: RIGHT KIDNEY: Normal location of the right kidney, which is normal in size. The right kidney measures 10.0 cm. There is a normal cortex of the right kidney. The renal cortex measures 1.2 cm. 1 cm cyst in the midsection the right kidney. There are no right renal calculi. There is no right hydronephrosis. DISTAL RIGHT URETER: There is non-visualization of the distal right ureter. There is no demonstrated right ureterovesical junction calculus. There is a visualized right ureteral jet. LEFT KIDNEY: Normal location of the left kidney, which is normal in size. The left kidney measures 9.8 cm. There is a normal cortex of the left kidney. The renal cortex measures 1.7 cm. There is no left renal mass or cyst. There are no left renal calculi. There is no left hydronephrosis. DISTAL LEFT URETER: There is non-visualization of the distal left ureter. There is no demonstrated left ureterovesical junction calculus. There is a visualized left ureteral jet. BLADDER: The distended urinary bladder has a volume of 197 ml. The empty urinary bladder has a volume of ml. There is a normal wall thickness of the distended urinary bladder. There is no demonstrated mass within the urinary bladder. There are no demonstrated bladder calculi. US/Kidney and Bladder IMPRESSION: Normal ultrasound of the kidneys and urinary bladder. Electronically Signed: Ramiro Willams MD at 15:32 EDT Tel , Service support ,
== END ==
PROVIDERS: PCP Family Medicine Geriatric Medicine; Referring Provider Family Medicine Geriatric Medicine; Visit Provider Family Medicine Geriatric Medicine
DX: I10 Essential (primary) hypertension (principal)
CPT/HCPCS: 76770

== ENCOUNTER → 2020-09-10 11:38 | Outpatient (CLI) | payer MEDICARE, SELFPAY ==
[2020-09-10 12:53] LABS: Protein, Urine (Random) 25.8 mg/dL (<11.9); Protein:Creat Ratio 180 mg/g CRE (0-200)
== END ==
PROVIDERS: PCP Family Medicine Geriatric Medicine; Visit Provider Internal Medicine Nephrology
DX: N17.9 Acute kidney failure, unspecified (principal)
CPT/HCPCS: 82570; 84156

== ENCOUNTER → 2020-10-10 12:43 | Outpatient (CLI) | payer MEDICARE, SELFPAY ==
[2020-10-10 14:08] LABS: BUN 17 mg/dL (7-18); BUN/Creat Ratio 11.3 RATIO (10-20); Calcium,Total 9.1 mg/dL (8.5-10.1); Chloride 106 mmol/L (98-107); Creatinine, Serum 1.51 mg/dL (0.70-1.30); EST Glomerular Filtration Rate 47 mL/min (>60); Est Glom Filt Rate - Afr Amer 57 mL/min (>60); Glucose 147 mg/dL (74-106); Phosphorus 2.3 mg/dL (2.5-4.9); Potassium 3.7 mmol/L (3.5-5.1); Sodium Level 138 mmol/L (136-145)
== END ==
PROVIDERS: PCP Family Medicine Geriatric Medicine; Referring Provider Internal Medicine Nephrology; Visit Provider Internal Medicine Nephrology
DX: N17.9 Acute kidney failure, unspecified (principal)
CPT/HCPCS: 36415; 80069

== ENCOUNTER → 2021-01-22 14:08 | Outpatient (CLI) | payer MEDICARE, SELFPAY ==
[2021-01-22 17:02] LABS: BUN 18 mg/dL (7-18); BUN/Creat Ratio 12.2 RATIO (10-20); Chloride 107 mmol/L (98-107); Creatinine, Serum 1.48 mg/dL (0.70-1.30); EST Glomerular Filtration Rate 48 mL/min (>60); Est Glom Filt Rate - Afr Amer 58 mL/min (>60); Glucose 116 mg/dL (74-106); Phosphorus 2.8 mg/dL (2.5-4.9); Potassium 3.8 mmol/L (3.5-5.1); Sodium Level 141 mmol/L (136-145)
== END ==
PROVIDERS: PCP Family Medicine Geriatric Medicine; Visit Provider Internal Medicine Nephrology
DX: N17.9 Acute kidney failure, unspecified (principal)
CPT/HCPCS: 36415; 80069

== ENCOUNTER → 2021-01-29 10:23 | Outpatient (CLI) | payer MEDICARE, SELFPAY ==
[2021-01-29 12:29] LABS: Absolute Lymphocyte Count 0.84 X10^3/uL (0.83-4.51); Absolute Neutrophil Count 2.5 X10^3/uL (2.0-7.7); Basophil# 0.05 X10^3/uL; Basophil% 1.2 % (0-1); Eosinophil# 0.25 X10^3/uL; Hematocrit 40.3 % (40-54); Hemoglobin 13.3 g/dL (13.0-16.5); Lymphocyte # 0.84 X10^3/ul (0.83-4.51); Lymphocyte % 20.3 % (19-41); Mean Corpuscular Hgb 30.5 pg (27.0-32.0); Mean Corpuscular Volume 92.4 fL (80-94); Mean Platelet Vol. 12.4 fl (6.2-12.0); Monocyte# 0.47 X10^3/uL; Monocyte% 11.4 % (0-10); NRBC Flagged by Analyzer 0 % (0-5); Neutrophil # 2.52 X10^3/uL (2.7-7.7); Neutrophil % 60.9 % (47-70); Platelet Count 135 K/mm3 (150-450); RBC Distribution Width CV 13.6 % (11.6-14.6); RBC Distribution Width SD 46.1 fl (35.1-43.9); Red Blood Count 4.36 M/mm3 (4.6-6.2); White Blood Count 4.1 K/mm3 (4.4-11.0)
[2021-01-29 12:55] LABS: Vitamin D,25 Hydroxy 24.7 ng/mL
[2021-01-29 13:07] LABS: ALB/GLOB Ratio 1.1 RATIO (0.9-2.4); AST(SGOT) 18 U/L (15-37); Alanine Aminotransfer ALT/SGPT 32 U/L (16-61); Albumin, Serum 3.8 g/dL (3.2-5.0); Alkaline Phosphatase 101 U/L (45-117); Anion Gap 10 (5-15); BUN 22 mg/dL (7-18); BUN/Creat Ratio 15.5 RATIO (10-20); Calcium,Total 9.1 mg/dL (8.5-10.1); Chloride 104 mmol/L (98-107); Creatinine, Serum 1.42 mg/dL (0.70-1.30); EST Glomerular Filtration Rate 51 mL/min (>60); Est Glom Filt Rate - Afr Amer 61 mL/min (>60); Globulin 3.4 g/dL (2.2-4.2); Glucose 146 mg/dL (74-106); Potassium 3.5 mmol/L (3.5-5.1); Protein, Total 7.2 g/dL (6.4-8.2); Sodium Level 140 mmol/L (136-145); Thyroid Stim Hormone (TSH) 2.06 uIU/mL (0.358-3.74)
== END ==
PROVIDERS: PCP Family Medicine Geriatric Medicine; Visit Provider Family Medicine Geriatric Medicine
DX: E11.9 Type 2 diabetes mellitus without complications (principal); E55.9 Vitamin D deficiency, unspecified; F52.8 Other sexual dysfunction not due to a substance or known physiological condition; I10 Essential (primary) hypertension
CPT/HCPCS: 36415; 80053; 82306; 84403; 84443; 85025

== ENCOUNTER → 2021-07-16 | Outpatient (CLI) | payer MEDICARE, SELFPAY ==
[2021-07-16 12:04] LABS: Absolute Lymphocyte Count 0.86 X10^3/uL (0.83-4.51); Absolute Neutrophil Count 2.6 X10^3/uL (2.0-7.7); Basophil# 0.02 X10^3/uL; Basophil% 0.5 % (0-1); Eosinophils% 2.4 % (0-5); Hematocrit 39.8 % (40-54); Hemoglobin 13.4 g/dL (13.0-16.5); Lymphocyte # 0.86 X10^3/ul (0.83-4.51); Lymphocyte % 20.8 % (19-41); Mean Corp Hgb Conc 33.7 g/dL (32-36); Mean Corpuscular Hgb 31.5 pg (27.0-32.0); Mean Corpuscular Volume 93.4 fL (80-94); Mean Platelet Vol. 11.7 fl (6.2-12.0); Monocyte# 0.54 X10^3/uL; NRBC Flagged by Analyzer 0 % (0-5); Neutrophil # 2.61 X10^3/uL (2.7-7.7); Neutrophil % 63.1 % (47-70); Platelet Count 132 K/mm3 (150-450); RBC Distribution Width CV 13.2 % (11.6-14.6); RBC Distribution Width SD 45.2 fl (35.1-43.9); Red Blood Count 4.26 M/mm3 (4.6-6.2); White Blood Count 4.1 K/mm3 (4.4-11.0)
[2021-07-16 12:33] LABS: Protein, Urine (Random) 16.4 mg/dL (<11.9); Protein:Creat Ratio 144 mg/g CRE (0-200)
[2021-07-16 12:37] LABS: Hemoglobin A1c 6.3 % (3.8-5.6)
[2021-07-16 12:38] LABS: ALB/GLOB Ratio 1.3 RATIO (0.9-2.4); AST(SGOT) 18 U/L (15-37); Alanine Aminotransfer ALT/SGPT 25 U/L (16-61); Albumin, Serum 3.9 g/dL (3.2-5.0); Alkaline Phosphatase 87 U/L (45-117); Anion Gap 7 (5-15); BUN 20 mg/dL (7-18); BUN/Creat Ratio 14.2 RATIO (10-20); Calcium,Total 8.9 mg/dL (8.5-10.1); Chloride 107 mmol/L (98-107); Cholesterol 110 mg/dL (200); Creatinine, Serum 1.41 mg/dL (0.70-1.30); EST Glomerular Filtration Rate 51 mL/min (>60); Est Glom Filt Rate - Afr Amer 62 mL/min (>60); Globulin 3.1 g/dL (2.2-4.2); Glucose 107 mg/dL (74-106); High Density Lipoprotein 33 mg/dL; Phosphorus 2.4 mg/dL (2.5-4.9); Sodium Level 139 mmol/L (136-145); Thyroid Stim Hormone (TSH) 1.99 uIU/mL (0.358-3.74); Triglycerides 128 mg/dL; Uric Acid 6.1 mg/dL (3.5-7.2); Very Low Density Lipoprotein 26 mg/dL (5-40)
== END | disposition home or self-care (01) ==
LOC: POLAB3 11:09
PROVIDERS: PCP Family Medicine Geriatric Medicine; Visit Provider Internal Medicine Nephrology
DX: I12.9 Hypertensive chronic kidney disease with stage 1 through stage 4 chronic kidney disease, or unspecified chronic kidney disease (principal); E11.22 Type 2 diabetes mellitus with diabetic chronic kidney disease; N18.31 Chronic kidney disease, stage 3a; E55.9 Vitamin D deficiency, unspecified; E78.5 Hyperlipidemia, unspecified; F52.8 Other sexual dysfunction not due to a substance or known physiological condition
CPT/HCPCS: 36415; 80053; 80061; 82306; 82570; 83036; 84100; 84156; 84403; 84443; 84550; 85025

== ENCOUNTER → 2022-01-15 | Outpatient (CLI) | payer MEDICARE, SELFPAY ==
[2022-01-15 17:54] LABS: Albumin, Serum 4.2 g/dL (3.2-5.0); BUN 18 mg/dL (7-18); BUN/Creat Ratio 11.7 RATIO (10-20); Calcium,Total 9.4 mg/dL (8.5-10.1); Chloride 106 mmol/L (98-107); Creatinine, Serum 1.54 mg/dL (0.70-1.30); EST Glomerular Filtration Rate 46 mL/min (>60); Est Glom Filt Rate - Afr Amer 56 mL/min (>60); Glucose 105 mg/dL (74-106); Phosphorus 2.2 mg/dL (2.5-4.9); Potassium 3.9 mmol/L (3.5-5.1); Sodium Level 139 mmol/L (136-145)
[2022-01-15 17:58] LABS: Protein, Urine (Random) 30.3 mg/dL (<11.9); Protein:Creat Ratio 235 mg/g CRE (0-200)
== END | disposition home or self-care (01) ==
LOC: POLAB3 15:10
PROVIDERS: PCP Family Medicine Geriatric Medicine; Visit Provider Internal Medicine Nephrology
DX: E11.22 Type 2 diabetes mellitus with diabetic chronic kidney disease (principal); N18.31 Chronic kidney disease, stage 3a
CPT/HCPCS: 36415; 80069; 82570; 84156

== ENCOUNTER → 2022-01-21 | Outpatient (CLI) | payer MEDICARE, SELFPAY ==
[2022-01-21 13:06] LABS: Absolute Lymphocyte Count 0.96 X10^3/uL (0.83-4.51); Absolute Neutrophil Count 2.6 X10^3/uL (2.0-7.7); Basophil# 0.03 X10^3/uL; Basophil% 0.7 % (0-1); Eosinophil# 0.12 X10^3/uL; Eosinophils% 2.8 % (0-5); Hematocrit 41.6 % (40-54); Hemoglobin 14.3 g/dL (13.0-16.5); Lymphocyte # 0.96 X10^3/ul (0.83-4.51); Lymphocyte % 22.7 % (19-41); Mean Corp Hgb Conc 34.4 g/dL (32-36); Mean Corpuscular Volume 96.1 fL (80-94); Mean Platelet Vol. 12.6 fl (6.2-12.0); Monocyte# 0.55 X10^3/uL; NRBC Flagged by Analyzer 0 % (0-5); Neutrophil # 2.55 X10^3/uL (2.7-7.7); Neutrophil % 60.6 % (47-70); Platelet Count 142 K/mm3 (150-450); RBC Distribution Width CV 12.7 % (11.6-14.6); RBC Distribution Width SD 45.2 fl (35.1-43.9); Red Blood Count 4.33 M/mm3 (4.6-6.2); White Blood Count 4.2 K/mm3 (4.4-11.0)
[2022-01-21 13:22] LABS: Vitamin D,25 Hydroxy 11.6 ng/mL
[2022-01-21 13:46] LABS: ALB/GLOB Ratio 1.1 RATIO (0.9-2.4); AST(SGOT) 25 U/L (15-37); Alanine Aminotransfer ALT/SGPT 41 U/L (16-61); Alkaline Phosphatase 96 U/L (45-117); Anion Gap 9 (5-15); BUN 22 mg/dL (7-18); BUN/Creat Ratio 16.3 RATIO (10-20); Calcium,Total 9.2 mg/dL (8.5-10.1); Chloride 108 mmol/L (98-107); Creatinine, Serum 1.35 mg/dL (0.70-1.30); EST Glomerular Filtration Rate 54 mL/min (>60); Est Glom Filt Rate - Afr Amer 65 mL/min (>60); Globulin 3.6 g/dL (2.2-4.2); Glucose 101 mg/dL (74-106); Potassium 4.1 mmol/L (3.5-5.1); Protein, Total 7.6 g/dL (6.4-8.2); Sodium Level 141 mmol/L (136-145); Thyroid Stim Hormone (TSH) 3.22 uIU/mL (0.358-3.74)
== END | disposition home or self-care (01) ==
LOC: POLAB3 10:39
PROVIDERS: PCP Family Medicine Geriatric Medicine; Visit Provider Family Medicine Geriatric Medicine
DX: I10 Essential (primary) hypertension (principal); E11.9 Type 2 diabetes mellitus without complications; E55.9 Vitamin D deficiency, unspecified
CPT/HCPCS: 36415; 80053; 82306; 84443; 85025

== ENCOUNTER → 2022-07-22 | Outpatient (CLI) | payer MEDICARE, SELFPAY ==
[2022-07-22 11:37] LABS: Protein, Urine (Random) 21.6 mg/dL (<11.9); Protein:Creat Ratio 182 mg/g CRE (0-200)
[2022-07-22 11:51] LABS: Albumin, Serum 3.9 g/dL (3.2-5.0); BUN 20 mg/dL (7-18); BUN/Creat Ratio 14.1 RATIO (10-20); Calcium,Total 9.3 mg/dL (8.5-10.1); Chloride 107 mmol/L (98-107); Creatinine, Serum 1.42 mg/dL (0.70-1.30); EST Glomerular Filtration Rate 50 mL/min (>60); Est Glom Filt Rate - Afr Amer 61 mL/min (>60); Glucose 113 mg/dL (74-106); Phosphorus 2.6 mg/dL (2.5-4.9); Potassium 3.8 mmol/L (3.5-5.1); Sodium Level 139 mmol/L (136-145)
== END | disposition home or self-care (01) ==
LOC: LAB 10:49
PROVIDERS: PCP Family Medicine Geriatric Medicine; Referring Provider Internal Medicine Nephrology; Visit Provider Internal Medicine Nephrology
DX: E11.22 Type 2 diabetes mellitus with diabetic chronic kidney disease (principal); N18.31 Chronic kidney disease, stage 3a
CPT/HCPCS: 36415; 80069; 82570; 84156

== ENCOUNTER → 2022-07-29 | Outpatient (CLI) | payer MEDICARE, SELFPAY ==
[2022-07-29 11:19] LABS: Absolute Lymphocyte Count 0.81 X10^3/uL (0.83-4.51); Absolute Neutrophil Count 2.4 X10^3/uL (2.0-7.7); Basophil# 0.04 X10^3/uL; Eosinophil# 0.13 X10^3/uL; Eosinophils% 3.3 % (0-5); Hematocrit 41.1 % (40-54); Hemoglobin 13.5 g/dL (13.0-16.5); Lymphocyte # 0.81 X10^3/ul (0.83-4.51); Lymphocyte % 20.3 % (19-41); Mean Corp Hgb Conc 32.8 g/dL (32-36); Mean Corpuscular Hgb 32.4 pg (27.0-32.0); Mean Corpuscular Volume 98.6 fL (80-94); Mean Platelet Vol. 11.5 fl (6.2-12.0); Monocyte# 0.57 X10^3/uL; Monocyte% 14.3 % (0-10); NRBC Flagged by Analyzer 0 % (0-5); Neutrophil # 2.44 X10^3/uL (2.7-7.7); Neutrophil % 60.8 % (47-70); Platelet Count 136 K/mm3 (150-450); RBC Distribution Width CV 13.1 % (11.6-14.6); RBC Distribution Width SD 46.6 fl (35.1-43.9); Red Blood Count 4.17 M/mm3 (4.6-6.2)
[2022-07-29 11:55] LABS: ALB/GLOB Ratio 1.3 RATIO (0.9-2.4); AST(SGOT) 21 U/L (15-37); Alanine Aminotransfer ALT/SGPT 28 U/L (16-61); Albumin, Serum 3.8 g/dL (3.2-5.0); Alkaline Phosphatase 87 U/L (45-117); Anion Gap 4 (5-15); BUN 16 mg/dL (7-18); BUN/Creat Ratio 12.2 RATIO (10-20); Chloride 110 mmol/L (98-107); Creatinine, Serum 1.31 mg/dL (0.70-1.30); EST Glomerular Filtration Rate 55 mL/min (>60); Est Glom Filt Rate - Afr Amer 67 mL/min (>60); Glucose 122 mg/dL (74-106); Potassium 3.9 mmol/L (3.5-5.1); Protein, Total 6.8 g/dL (6.4-8.2); Sodium Level 140 mmol/L (136-145); Thyroid Stim Hormone (TSH) 2.28 uIU/mL (0.358-3.74)
== END | disposition home or self-care (01) ==
LOC: LAB 10:36
PROVIDERS: PCP Family Medicine Geriatric Medicine; Referring Provider Family Medicine Geriatric Medicine; Visit Provider Family Medicine Geriatric Medicine
DX: E11.65 Type 2 diabetes mellitus with hyperglycemia (principal); I10 Essential (primary) hypertension
CPT/HCPCS: 36415; 80053; 84443; 85025

== ENCOUNTER → 2023-01-20 | Outpatient (CLI) | payer MEDICARE, SELFPAY ==
[2023-01-20 11:04] LABS: Absolute Lymphocyte Count 0.61 X10^3/uL (0.83-4.51); Absolute Neutrophil Count 2.3 X10^3/uL (2.0-7.7); Basophil# 0.04 X10^3/uL; Basophil% 1.1 % (0-1); Eosinophil# 0.14 X10^3/uL; Eosinophils% 3.9 % (0-5); Hemoglobin 13.1 g/dL (13.0-16.5); Lymphocyte # 0.61 X10^3/ul (0.83-4.51); Lymphocyte % 17.2 % (19-41); Mean Corpuscular Hgb 30.9 pg (27.0-32.0); Mean Corpuscular Volume 96.7 fL (80-94); Mean Platelet Vol. 11.5 fl (6.2-12.0); Monocyte# 0.42 X10^3/uL; Monocyte% 11.8 % (0-10); NRBC Flagged by Analyzer 0 % (0-5); Neutrophil # 2.33 X10^3/uL (2.7-7.7); Neutrophil % 65.7 % (47-70); Platelet Count 180 K/mm3 (150-450); RBC Distribution Width CV 13.4 % (11.6-14.6); RBC Distribution Width SD 47.8 fl (35.1-43.9); Red Blood Count 4.24 M/mm3 (4.6-6.2); White Blood Count 3.6 K/mm3 (4.4-11.0)
[2023-01-20 11:54] LABS: AST(SGOT) 23 U/L (15-37); Alanine Aminotransfer ALT/SGPT 29 U/L (16-61); Albumin, Serum 3.7 g/dL (3.2-5.0); Alkaline Phosphatase 102 U/L (45-117); Anion Gap 6 (5-15); BUN 21 mg/dL (7-18); BUN/Creat Ratio 15.4 RATIO (10-20); Calcium,Total 9.1 mg/dL (8.5-10.1); Chloride 108 mmol/L (98-107); Creatinine, Serum 1.36 mg/dL (0.70-1.30); EST Glomerular Filtration Rate 53 mL/min (>60); Est Glom Filt Rate - Afr Amer 64 mL/min (>60); Globulin 3.8 g/dL (2.2-4.2); Glucose 100 mg/dL (74-106); Potassium 4.1 mmol/L (3.5-5.1); Protein, Total 7.5 g/dL (6.4-8.2); Sodium Level 139 mmol/L (136-145); Thyroid Stim Hormone (TSH) 1.93 uIU/mL (0.358-3.74); Vitamin D,25 Hydroxy 35.2 ng/mL
== END | disposition home or self-care (01) ==
LOC: POLAB3 10:06
PROVIDERS: PCP Family Medicine Geriatric Medicine; Visit Provider Family Medicine Geriatric Medicine
DX: I10 Essential (primary) hypertension (principal); E11.65 Type 2 diabetes mellitus with hyperglycemia; E55.9 Vitamin D deficiency, unspecified
CPT/HCPCS: 36415; 80053; 82306; 84443; 85025

== ENCOUNTER → 2023-05-05 | Outpatient (CLI) | payer MEDICARE, SELFPAY ==
[2023-05-05 13:30] LABS: Albumin, Serum 3.8 g/dL (3.2-5.0); BUN 24 mg/dL (7-18); BUN/Creat Ratio 17.6 RATIO (10-20); Calcium,Total 9.3 mg/dL (8.5-10.1); Chloride 109 mmol/L (98-107); Creatinine, Serum 1.36 mg/dL (0.70-1.30); EST Glomerular Filtration Rate 53 mL/min (>60); Est Glom Filt Rate - Afr Amer 64 mL/min (>60); Glucose 111 mg/dL (74-106); Phosphorus 2.8 mg/dL (2.5-4.9); Potassium 3.7 mmol/L (3.5-5.1); Sodium Level 140 mmol/L (136-145)
[2023-05-05 13:35] LABS: Protein, Urine (Random) 32.1 mg/dL (<11.9); Protein:Creat Ratio 292 mg/g CRE (0-200)
== END | disposition home or self-care (01) ==
LOC: LAB 11:17
PROVIDERS: PCP Family Medicine Geriatric Medicine; Referring Provider Internal Medicine Nephrology; Visit Provider Internal Medicine Nephrology
DX: E11.22 Type 2 diabetes mellitus with diabetic chronic kidney disease (principal); N18.31 Chronic kidney disease, stage 3a
CPT/HCPCS: 36415; 80069; 82570; 84156

== ENCOUNTER → 2023-07-27 | Outpatient (CLI) | payer MEDICARE, SELFPAY ==
[2023-07-27 12:37] LABS: Absolute Lymphocyte Count 0.81 X10^3/uL (0.83-4.51); Absolute Neutrophil Count 2.4 X10^3/uL (2.0-7.7); Basophil# 0.03 X10^3/uL; Basophil% 0.8 % (0-1); Eosinophil# 0.08 X10^3/uL; Hematocrit 40.3 % (40-54); Hemoglobin 13.5 g/dL (13.0-16.5); Lymphocyte # 0.81 X10^3/ul (0.83-4.51); Lymphocyte % 20.7 % (19-41); Mean Corp Hgb Conc 33.5 g/dL (32-36); Mean Corpuscular Hgb 33.3 pg (27.0-32.0); Mean Corpuscular Volume 99.5 fL (80-94); Mean Platelet Vol. 11.3 fl (6.2-12.0); Monocyte# 0.54 X10^3/uL; Monocyte% 13.8 % (0-10); NRBC Flagged by Analyzer 0 % (0-5); Neutrophil # 2.44 X10^3/uL (2.7-7.7); Neutrophil % 62.4 % (47-70); Platelet Count 132 K/mm3 (150-450); RBC Distribution Width CV 13.4 % (11.6-14.6); RBC Distribution Width SD 48.8 fl (35.1-43.9); Red Blood Count 4.05 M/mm3 (4.6-6.2); White Blood Count 3.9 K/mm3 (4.4-11.0)
[2023-07-27 12:51] LABS: Hemoglobin A1c 5.9 % (3.8-5.6)
[2023-07-27 13:11] LABS: Vitamin D,25 Hydroxy 28.4 ng/mL
[2023-07-27 13:25] LABS: ALB/GLOB Ratio 1.3 RATIO (0.9-2.4); AST(SGOT) 21 U/L (15-37); Alanine Aminotransfer ALT/SGPT 27 U/L (16-61); Albumin, Serum 4.1 g/dL (3.2-5.0); Alkaline Phosphatase 76 U/L (45-117); Anion Gap 9 (5-15); BUN 32 mg/dL (7-18); BUN/Creat Ratio 14.2 RATIO (10-20); Calcium,Total 9.2 mg/dL (8.5-10.1); Chloride 108 mmol/L (98-107); Cholesterol 150 mg/dL (200); Creatinine, Serum 2.25 mg/dL (0.70-1.30); EST Glomerular Filtration Rate 30 mL/min (>60); Est Glom Filt Rate - Afr Amer 36 mL/min (>60); Globulin 3.1 g/dL (2.2-4.2); Glucose 134 mg/dL (74-106); High Density Lipoprotein 45 mg/dL; Potassium 4.6 mmol/L (3.5-5.1); Protein, Total 7.2 g/dL (6.4-8.2); Sodium Level 140 mmol/L (136-145); Thyroid Stim Hormone (TSH) 1.86 uIU/mL (0.358-3.74); Triglycerides 78 mg/dL; Very Low Density Lipoprotein 16 mg/dL (5-40)
== END | disposition home or self-care (01) ==
PROVIDERS: PCP Family Medicine Geriatric Medicine; Referring Provider Family Medicine Geriatric Medicine; Visit Provider Family Medicine Geriatric Medicine
DX: E11.65 Type 2 diabetes mellitus with hyperglycemia (principal); I10 Essential (primary) hypertension; E78.5 Hyperlipidemia, unspecified
CPT/HCPCS: 36415; 80053; 80061; 82306; 83036; 84443; 85025

== ENCOUNTER 2023-08-04 20:15 | Emergency (ER) | payer MEDICARE, SELFPAY ==
[2023-08-04 20:16] VITALS: BP 166/85; PULSE 79; RESP 18; TEMP 36.1; O2SAT 100; BMI 27.8
--- NOTE | 2023-08-04 21:01 | EX.ED.DYSGE1 ---
HPI History of Present Illness Chief Complaint: Foreign Body Informant: patient Narrative Narrative: 83-year-old male presenting to the emergency room with foreign body in the left ear canal. Patient states that he was working with his hearing aid when the rubber piece came off. He tried to retrieve it but was unable to do so. [facility] Medical History Hypertension High cholesterol Macular degeneration [place] esophagus History of colorectal cancer Home Medications ?Medication ?Instructions ?Recorded ?Last Taken ?Type esomeprazole magnesium 20 mg 40 mg PO DAILY 10/01/18 Unknown History capsule,delayed release losartan 100 mg tablet 100 mg PO DAILY 10/01/18 Unknown History rosuvastatin 40 mg tablet 40 mg PO DAILY 10/01/18 Unknown History vit A 300 mcg-C 200 mg-E 27 1 ea PO BID 10/01/18 Unknown History mg-lutein 2 mg and minerals tablet Allergy/AdvReac Type Severity Reaction Status Date / Time Tetanus Vaccines and Toxoid Allergy Angioedema Verified 08/04/23 20:16 Surgical History History of right hemicolectomy History of colostomy Social History Smoking Status: Former smoker ROS ROS ED Constitutional Constitutional ED: Denies chills or weight loss Eyes Eyes: Denies change in vision or diplopia ENT ENT ED: Reports other Details: See history of present illness ; Denies ear pain, rhinorrhea or sore throat Cardiovascular Cardiovascular: Denies chest pain, orthopnea, palpitations or racing heartbeat Respiratory/Chest Respiratory/Chest: Denies cough, dyspnea or orthopnea Gastrointestinal Gastrointestinal: Denies abdominal pain, diarrhea, nausea or vomiting Genitourinary Genitourinary ED: Denies dysuria, hematuria or urinary frequency Musculoskeletal Musculoskeletal: Denies arthralgias or myalgias Integumentary Denies abscess or rash Neurologic Neurologic: Denies headache(s) or weakness Psychiatric Psychiatric: Denies anxiety, depression, suicidal ideation or suicidal thoughts Endocrine Endocrinology: Denies polydipsia, polyphagia or polyuria Allergic/Immunologic Allergic/Immunologic ED: Denies mouth swelling, tongue swelling or urticaria EXAM Physical Exam Const Vital Signs: 08/04/23 20:16 Temperature 96.9 F L Temperature Source Temporal Pulse Rate 79 Respiratory Rate 18 Blood Pressure 166/85 H Blood Pressure Mean 112 Pulse Ox 100 Oxygen Delivery Method Room Air Positive well nourished and well developed General Appearance ED: well developed HEENT Reports normocephalic, head/scalp atraumatic and moist mucous membranes HEENT Narrative: There is a piece of rubber in the right ear canal Eyes PERRL and EOMs intact bilaterally Neck no lymphadenopathy, supple and no JVD Resp normal respiratory effort and clear to auscultation bilaterally Cardio regular rate, regular rhythm and no murmurs GI normal to inspection, nondistended, normoactive bowel sounds and non-tender Palpation: soft Back/Spine no CVA tenderness and normal ROM Extremity normal to inspection General Extremety ED: Negative for edema General Extremity: Negative for edema Neuro oriented x3 and CN's II-XII intact bilaterally Sensorium / Orientation: alert Motor Exam: strength 5/5 throughout Psych mental status grossly normal Mood & Affect: Negative for depressed or tearful Skin no rashes or lesions noted and no wounds MDM MDM MDM Narrative Medical decision making narrative: Using headlamp and alligator forceps prepuce of the hearing aid was grasped and easily removed. Tympanic membrane is intact. No trauma to the ear canal noted. Patient was given the foreign body in a specimen container. History & Record Review Discussion w/independent historian: Patient Discharge Plan Triage Chief Complaint: Foreign Body ED Provider: Sanjeev Biggs Dx/Rx/DC Orders Clinical Impression: Foreign body in right ear Instructions: ED Foreign Body, Ear Canal (Removed) Prescriptions: No Action losartan 100 MG tablet 100 mg PO DAILY esomeprazole magnesium 20 MG capsule,delayed release(DR/EC) 40 mg PO DAILY rosuvastatin 40 MG tablet 40 mg PO DAILY vit A,C and G-lhuiuq-gqnvigup 1 EACH tablet 1 ea PO BID Primary Care Provider: Chris Feliz Chi Referrals: Chris Feliz Chi, MD [Primary Care Provider] - As Needed Print Language: Indian Disposition Disposition: Home, Self Care
== END 2023-08-04 21:28 | disposition home or self-care (01) ==
PROVIDERS: Emergency Provider Emergency Medicine; PCP Family Medicine Geriatric Medicine; Visit Provider Emergency Medicine
DX: T16.2XXA Foreign body in left ear, initial encounter (principal); Z93.3 Colostomy status; Z87.891 Personal history of nicotine dependence; W44.G1XA Audio device entering into or through a natural orifice, initial encounter; I10 Essential (primary) hypertension; E78.00 Pure hypercholesterolemia, unspecified; Z85.038 Personal history of other malignant neoplasm of large intestine; Z79.899 Other long term (current) drug therapy
CPT/HCPCS: 99282

== ENCOUNTER → 2023-08-10 | Outpatient (CLI) | payer MEDICARE, SELFPAY ==
[2023-08-10 11:53] LABS: Anion Gap 7 (5-15); BUN 16 mg/dL (7-18); BUN/Creat Ratio 10.7 RATIO (10-20); Calcium,Total 9.1 mg/dL (8.5-10.1); Chloride 106 mmol/L (98-107); EST Glomerular Filtration Rate 47 mL/min (>60); Est Glom Filt Rate - Afr Amer 57 mL/min (>60); Glucose 119 mg/dL (74-106); Potassium 3.6 mmol/L (3.5-5.1); Sodium Level 139 mmol/L (136-145)
== END | disposition home or self-care (01) ==
LOC: LAB 11:10
PROVIDERS: PCP Family Medicine Geriatric Medicine; Referring Provider Family Medicine Geriatric Medicine; Visit Provider Family Medicine Geriatric Medicine
DX: N18.4 Chronic kidney disease, stage 4 (severe) (principal)
CPT/HCPCS: 36415; 80048

== ENCOUNTER → 2024-01-20 | Outpatient (CLI) | payer MEDICARE, SELFPAY ==
[2024-01-20 10:03] LABS: Absolute Lymphocyte Count 0.82 X10^3/uL (0.83-4.51); Basophil# 0.04 X10^3/uL; Basophil% 1.2 % (0-1); Eosinophil# 0.13 X10^3/uL; Eosinophils% 3.7 % (0-5); Hematocrit 41.2 % (40-54); Hemoglobin 14.1 g/dL (13.0-16.5); Lymphocyte # 0.82 X10^3/ul (0.83-4.51); Lymphocyte % 23.6 % (19-41); Mean Corp Hgb Conc 34.2 g/dL (32-36); Mean Corpuscular Hgb 33.1 pg (27.0-32.0); Mean Corpuscular Volume 96.7 fL (80-94); Mean Platelet Vol. 11.5 fl (6.2-12.0); Monocyte# 0.49 X10^3/uL; Monocyte% 14.1 % (0-10); NRBC Flagged by Analyzer 0 % (0-5); Neutrophil # 1.99 X10^3/uL (2.7-7.7); Neutrophil % 57.4 % (47-70); Platelet Count 149 K/mm3 (150-450); RBC Distribution Width CV 13.2 % (11.6-14.6); RBC Distribution Width SD 47.5 fl (35.1-43.9); Red Blood Count 4.26 M/mm3 (4.6-6.2); White Blood Count 3.5 K/mm3 (4.4-11.0)
[2024-01-20 10:45] LABS: ALB/GLOB Ratio 1.2 RATIO (0.9-2.4); AST(SGOT) 19 U/L (15-37); Alanine Aminotransfer ALT/SGPT 28 U/L (16-61); Albumin, Serum 4.1 g/dL (3.2-5.0); Alkaline Phosphatase 91 U/L (45-117); Anion Gap 7 (5-15); BUN 26 mg/dL (7-18); BUN/Creat Ratio 15.4 RATIO (10-20); Calcium,Total 9.7 mg/dL (8.5-10.1); Chloride 105 mmol/L (98-107); Cholesterol 145 mg/dL (200); Creatinine, Serum 1.69 mg/dL (0.70-1.30); EST Glomerular Filtration Rate 41 mL/min (>60); Est Glom Filt Rate - Afr Amer 50 mL/min (>60); Globulin 3.3 g/dL (2.2-4.2); Glucose 126 mg/dL (74-106); High Density Lipoprotein 52 mg/dL; Protein, Total 7.4 g/dL (6.4-8.2); Sodium Level 137 mmol/L (136-145); Triglycerides 109 mg/dL; Very Low Density Lipoprotein 22 mg/dL (5-40)
[2024-01-20 10:46] LABS: Vitamin D,25 Hydroxy 27.5 ng/mL
[2024-01-20 11:31] LABS: Hemoglobin A1c 6.4 % (3.8-5.6)
== END | disposition home or self-care (01) ==
LOC: POLAB3 09:24
PROVIDERS: PCP Family Medicine Geriatric Medicine; Visit Provider Family Medicine Geriatric Medicine
DX: I10 Essential (primary) hypertension (principal); E11.65 Type 2 diabetes mellitus with hyperglycemia; E78.5 Hyperlipidemia, unspecified; E55.9 Vitamin D deficiency, unspecified
CPT/HCPCS: 36415; 80053; 80061; 82306; 83036; 84443; 85025

== ENCOUNTER → 2024-05-15 | Outpatient (CLI) | payer MEDICARE, SELFPAY ==
[2024-05-15 18:44] LABS: Albumin, Serum 4.5 g/dL (3.4-4.8); Anion Gap 14 (5-15); BUN 15 mg/dL (4-19); Calcium,Total 9.5 mg/dL (7.6-11.0); Carbon Dioxide 20.7 mmol/L (21.0-32.0); Chloride 104 mmol/L (98-108); Creatinine, Serum 1.63 mg/dL (0.70-1.20); EST Glomerular Filtration Rate 41 (>60); Glucose 112 mg/dL (70-99); Phosphorus 2.1 mg/dL (2.7-4.5); Sodium Level 139 mmol/L (133-145)
== END | disposition home or self-care (01) ==
LOC: LAB 15:29
PROVIDERS: PCP Family Medicine Geriatric Medicine; Referring Provider Internal Medicine Nephrology; Visit Provider Internal Medicine Nephrology
DX: N18.31 Chronic kidney disease, stage 3a (principal)
CPT/HCPCS: 36415; 80069

== ENCOUNTER → 2024-07-13 | Outpatient (CLI) | payer MEDICARE, SELFPAY | END | disposition home or self-care (01) | LOC: LAB 15:08 | PROVIDERS: PCP Family Medicine Geriatric Medicine; Referring Provider Internal Medicine Nephrology; Visit Provider Internal Medicine Nephrology | DX: Z00.00 Encounter for general adult medical examination without abnormal findings (principal) ==

== ENCOUNTER → 2024-08-01 | Outpatient (CLI) | payer MEDICARE, SELFPAY ==
[2024-08-01 13:32] LABS: Absolute Lymphocyte Count 0.81 X10^3/uL (0.83-4.51); Absolute Neutrophil Count 2.3 X10^3/uL (2.0-7.7); Basophil# 0.05 X10^3/uL; Basophil% 1.3 % (0-1); Eosinophil# 0.14 X10^3/uL; Eosinophils% 3.7 % (0-5); Hematocrit 40.1 % (40-54); Hemoglobin 13.7 g/dL (13.0-16.5); Lymphocyte # 0.81 X10^3/ul (0.83-4.51); Lymphocyte % 21.7 % (19-41); Mean Corp Hgb Conc 34.2 g/dL (32-36); Mean Corpuscular Hgb 32.5 pg (27.0-32.0); Mean Corpuscular Volume 95.2 fL (80-94); Mean Platelet Vol. 11.9 fl (6.2-12.0); Monocyte# 0.46 X10^3/uL; Monocyte% 12.3 % (0-10); NRBC Flagged by Analyzer 0 % (0-5); Neutrophil # 2.27 X10^3/uL (2.7-7.7); Neutrophil % 60.7 % (47-70); Platelet Count 138 K/mm3 (150-450); RBC Distribution Width CV 14.4 % (11.6-14.6); RBC Distribution Width SD 49.6 fl (35.1-43.9); Red Blood Count 4.21 M/mm3 (4.6-6.2); White Blood Count 3.7 K/mm3 (4.4-11.0)
[2024-08-01 16:27] LABS: Hemoglobin A1c 6.2 % (<=5.6)
[2024-08-01 18:49] LABS: ALB/GLOB Ratio 1.7 RATIO (0.9-2.4); AST(SGOT) 22 U/L (<=37); Alanine Aminotransfer ALT/SGPT 17 U/L (<=46); Albumin, Serum 4.3 g/dL (3.4-4.8); Alkaline Phosphatase 84 U/L (40-129); Anion Gap 15 (5-15); BUN 16 mg/dL (4-19); BUN/Creat Ratio 10.9 RATIO (10-20); Calcium,Total 9.2 mg/dL (7.6-11.0); Carbon Dioxide 22.1 mmol/L (21.0-32.0); Chloride 105 mmol/L (98-108); Cholesterol 129 mg/dL (<=200); Creatinine, Serum 1.46 mg/dL (0.70-1.20); EST Glomerular Filtration Rate 47 (>60); Globulin 2.5 g/dL (2.2-4.2); Glucose 127 mg/dL (70-99); High Density Lipoprotein 44 mg/dL; Low Density Lipoprotein Calc. 62 mg/dL; Potassium 3.8 mmol/L (3.3-5.1); Protein, Total 6.8 g/dL (5.9-8.4); Sodium Level 142 mmol/L (133-145); Total Bilirubin 0.68 mg/dL (0.00-1.30); Triglycerides 113 mg/dL; Very Low Density Lipoprotein 23 mg/dL (5-40); cholesterol:hdl ratio screen 2.91
[2024-08-01 20:27] LABS: Vitamin D,25 Hydroxy 24.3 ng/mL (30-100)
== END | disposition home or self-care (01) ==
LOC: LAB 12:44
PROVIDERS: PCP Family Medicine Geriatric Medicine; Referring Provider Family Medicine Geriatric Medicine; Visit Provider Family Medicine Geriatric Medicine
DX: I10 Essential (primary) hypertension (principal); E11.65 Type 2 diabetes mellitus with hyperglycemia; E55.9 Vitamin D deficiency, unspecified; E78.5 Hyperlipidemia, unspecified
CPT/HCPCS: 36415; 80053; 80061; 82306; 83036; 84443; 85025

== ENCOUNTER → 2024-08-03 | Outpatient (CLI) | payer MEDICARE, SELFPAY ==
[2024-08-03 12:39] LABS: Microalbumin:Creatinine Ratio 87.2 mg/g CRE
--- OUTSIDE RECORDS SUMMARY | 2024-08-03 21:14 | XMS RPT_ITS | CCD ---
Author Organization [facility] Care Team Providers Care Primary Care Physician Name Role Phone Tray HIRSCH, Dr. Chris Aldrich Primary Care Provider [phone] Tray HIRSCH, Dr. Chris Aldrich Attending Provider [phone] Dr. Yamilka Jerry DO Attending Provider Dr. Yamilka Jerry DO Referring Provider Dr. Chris Feliz MD, Chi Primary Care Provider [phone] Tray, Chris Chi Attending Unavailable Tray, Chris Chi Primary Care Unavailable Tray, Chris Chi Primary Care Unavailable Yamilka Jerry Attending Unavailable Yamilka Jerry Referring Unavailable Tray, Chris Chi Primary Care Unavailable Yamilka Jerry Attending Unavailable Yamilka Jerry Referring Unavailable Tray, Chris Chi Primary Care Unavailable Sanjeev Biggs Attending Unavailable Tray, Chris Chi Attending Unavailable Tray, Chris Chi Referring Unavailable Tray, Chris Chi Primary Care Unavailable Tray, Chris Chi Attending Unavailable Tray, Chris Chi Referring Unavailable Tray, Chris Chi Primary Care Unavailable Allergies Allergy Classification Reported Allergen(s) Allergy Type Date of Onset Reaction(s) Facility (6 sources) Tetanus Vaccines and Toxoid Allergy to substance 07-09-2020 Angioedema [facility] (1 source) Tetanus Vaccines and Toxoid Drug allergy (disorder) 08-04-2023 [facility] Repository Medications Current Medications Medication Drug Class(es) Dates Sig (Normalized) Sig (Original) esomeprazole 20 mg delayed release oral capsule (6 sources) Proton Pump Inhibitor Start: 10-01-2018 take 2 capsules by mouth once daily Esomeprazole Magnesium 20 MG capsule,delayed release(DR/EC) Active 40 mg PO DAILY October 01, 2018 12:00am Start: 10-01-2018 take 40 mg by mouth once daily Esomeprazole Magnesium Active 40 MG PO DAILY October 01, 2018 12:00am losartan potassium 100 mg oral tablet (6 sources) Angiotensin 2 Receptor Mauricio Start: 10-01-2018 take 1 tablet by mouth once daily Losartan 100 MG tablet Active 100 mg PO DAILY October 01, 2018 12:00am rosuvastatin calcium 40 mg oral tablet (6 sources) HMG-CoA Reductase Inhibitor Start: 10-01-2018 take 1 tablet by mouth once daily Rosuvastatin 40 MG tablet Active 40 mg PO DAILY October 01, 2018 12:00am Vit A,C And I-Dniwmw-Eyxvvrva (4 sources) Start: 10-01-2018 Vit A,C And H-Jvtnqc-Fjmmitoq Active 1 EACH PO TWICE A DAY October 01, 2018 12:00am Start: 10-01-2018 Vit A,C And E- Lutein-Minerals Active 1 EACH PO TWICE A DAY September 30, 2018 11:00pm Vit A,C And Z-Xehqee-Wvnrxlzb 1 EACH tablet (2 sources) Start: 10-01-2018 take 1 tablet by mouth twice daily Vit A,C And H-Qzzhvq-Jxkmcbet 1 EACH tablet Active 1 NMA PO TWICE A DAY October 01, 2018 12:00am Completed/Discontinued Medications Medication Drug Class(es) Dates Sig (Normalized) Sig (Original) acetaminophen 325 mg / HYDROcodone bitartrate 5 mg oral tablet (6 sources) Opioid Agonist Start: 10-01-2018 End: 10-08-2018 Hydrocodone-Acetami nophen 1 TABLET tablet Discontinued 1 {tbl} PO EVERY 6 HOURS NEEDED as needed for Pain 10 3 October 01, 2018 October 03, 2018 12:00am October 08, 2018 12:08am Start: 10-01-2018 End: 10-08-2018 take 1 tablet by mouth every six hours as needed Hydrocodone-Acetaminophen Discontinued 1 TABLET PO EVERY 6 HOURS NEEDED 10 3 October 01, 2018 October 08, 2018 12:08am Problems Active Problems Problem Classification Problem Date Documented Da te Episodic/Chronic Abdominal pain (6 sources) Abdominal pain; Translations: [Unspecified abdominal pain] 07-10-2020 Episodic Chronic kidney disease (1 source) Chronic kidney disease, stage 4 (severe); Translations: [Chronic kidney disease, stage 4 (severe)] Onset: 08-20-2023 Chronic Chronic kidney disease (1 source) Chronic kidney disease; Translations: [Chronic kidney disease, stage 3a] Onset: 05-18-2024 Diabetes mellitus with complications (1 source) Type 2 diabetes mellitus with hyperglycemia; Translations: [Type 2 diabetes mellitus with hyperglycemia] Onset: 08-01-2024 Chronic Disorders of lipid metabolism (1 source) Hyperlipidemia, unspecified; Translations: [Hyperlipidemia, unspecified] Onset: 08-01-2024 Chronic Essential hypertension (2 sources) Essential (primary) hypertension; Translations: [Essential (primary) hypertension] Onset: 02-20-2024 Chronic Fracture of upper limb (6 sources) Closed Colles' fracture; Translations: [Colles' fracture of left radius, initial encounter for closed fracture] 10-03-2018 Episodic Nutritional deficiencies (1 source) Vitamin D deficiency, unspecified; Translations: [Vitamin D deficiency, unspecified] Onset: 08-01-2024 Chronic Open wounds of head; neck; and trunk (6 sources) Superficial laceration of face; Translations: [Laceration without foreign body of other part of head, initial encounter] 10-03-2018 Episodic Other circulatory disease (6 sources) Elevated blood pressure; Translations: [Elevated blood-pressure reading, without diagnosis of hypertension] 10-01-2018 Episodic Other injuries and conditions due to external causes (2 sources) Foreign body in right ear; Translations: [Foreign body in right ear, initial encounter] 08-12-2023 Episodic Past or Other Problems Problem Classification Problem Date Documented Da te Episodic/Chronic Other injuries and conditions due to external causes (1 source) Foreign body in left ear, initial encounter; Translations: [Foreign body in left ear, initial encounter] Onset: 08-20-2023 Episodic Results Test Name Value Interpretation Reference Range Facility CBC W/Diff, Automatedon 07-10 Absolute Lymph 0.81 X10 3/uL Low 0.83-4.51 [facility] Comment on above: Performed By: #### L 506.1001, L500.4050, L501.9520, L501.9985, L500.4100, L100.0100 #### [facility] [address] [place], [place], [id number] Absolute Neut 2.3 X10 3/uL Normal 2.0-7.7 [facility] Comment on above: Performed By: #### L 506.1001, L500.4050, L501.9520, L501.9985, L500.4100, L100.0100 #### [facility] [address] [place], [address] Basophils/100 WBC (Bld) 1.3 % High 0-1 [facility] Comment on above: Performed By: #### L 506.1001, L500.4050, L501.9520, L501.9985, L500.4100, L100.0100 #### [facility] [address] [place], [address] Eosinophils/100 WBC (Bld) 3.7 % Normal 0-5 [facility] Comment on above: Performed By: #### L 506.1001, L500.4050, L501.9520, L501.9985, L500.4100, L100.0100 #### [facility] [address] [place], [address] Erythrocyte distribution width (RBC) [Ratio] 14.4 % Normal 11.6-14.6 [facility] Comment on above: Performed By: #### L 506.1001, L500.4050, L501.9520, L501.9985, L500.4100, L100.0100 #### [facility] [address] [place], [address] Hematocrit (Bld) [Volume fraction] 40.1 % Normal 40-54 [facility] Comment on above: Performed By: #### L 506.1001, L500.4050, L501.9520, L501.9985, L500.4100, L100.0100 #### [facility] [address] [place], [address] Hemoglobin (Bld) [Mass/Vol] 13.7 g/dL Normal 13.0-16.5 [facility] Comment on above: Performed By: #### L 506.1001, L500.4050, L501.9520, L501.9985, L500.4100, L100.0100 #### [facility] [address] [place], [address] IG% 0.300 Normal 0.0-0.9 [facility] Comment on above: Result Comment: IG% - Immature Granulocytes (promyelocytes, myelocytes and metamyelocytes) > 1% indicates that a LEFT SHIFT is Present. Performed By: #### L 506.1001, L500.4050, L501.9520, L501.9985, L500.4100, L100.0100 #### [facility] [address], [address] Lymphocytes/100 WBC (Bld) 21.7 % Normal 19-41 [facility] Comment on above: Performed By: #### L 506.1001, L500.4050, L501.9520, L501.9985, L500.4100, L100.0100 #### [facility] [address] [place], [address] MCH (RBC) [Entitic mass] 32.5 pg High 27.0-32.0 [facility] Comment on above: Performed By: #### L 506.1001, L500.4050, L501.9520, L501.9985, L500.4100, L100.0100 #### [facility] [address] [place], [address] MCHC (RBC) [Mass/Vol] 34.2 g/dL Normal 32-36 [facility] Comment on above: Performed By: #### L 506.1001, L500.4050, L501.9520, L501.9985, L500.4100, L100.0100 #### [facility] [address] [place], [address] MCV (RBC) [Entitic vol] 95.2 fL High 80-94 [facility] Comment on above: Performed By: #### L 506.1001, L500.4050, L501.9520, L501.9985, L500.4100, L100.0100 #### [facility] [address] [place], [address] Monocytes/100 WBC (Bld) 12.3 % High 0-10 [facility] Comment on above: Performed By: #### L 506.1001, L500.4050, L501.9520, L501.9985, L500.4100, L100.0100 #### [facility] [address] [place], [address] Neutrophils/100 WBC (Bld) 60.7 % Normal 47-70 [facility] Comment on above: Performed By: #### L 506.1001, L500.4050, L501.9520, L501.9985, L500.4100, L100.0100 #### [facility] [address] [place], [address] Nucleated RBC (Bld) [#/Vol] 0 10*3/uL Normal 0-5 [facility] Comment on above: Performed By: #### L 506.1001, L500.4050, L501.9520, L501.9985, L500.4100, L100.0100 #### [facility] [address] [place], [address] Platelet mean volume (Bld) [Entitic vol] 11.9 fL Normal 6.2-12.0 [facility] Comment on above: Performed By: #### L 506.1001, L500.4050, L501.9520, L501.9985, L500.4100, L100.0100 #### [facility] [address] [place], [address] Platelets (Bld) [#/Vol] 138 10*3/uL Low 150-450 [facility] Comment on above: Performed By: #### L 506.1001, L500.4050, L501.9520, L501.9985, L500.4100, L100.0100 #### [facility] [address] [place], [address] RBC (Bld) [#/Vol] 4.21 10*6/uL Low 4.6-6.2 [facility] Comment on above: Performed By: #### L 506.1001, L500.4050, L501.9520, L501.9985, L500.4100, L100.0100 #### [facility] [address] [place], [address] RDW SD 49.6 fl High 35.1-43.9 [facility] Comment on above: Performed By: #### L 506.1001, L500.4050, L501.9520, L501.9985, L500.4100, L100.0100 #### [facility] [address] [place], [address] WBC (Bld) [#/Vol] 3.7 10*3/uL Low 4.4-11.0 [facility] Comment on above: Performed By: #### L 506.1001, L500.4050, L501.9520, L501.9985, L500.4100, L100.0100 #### [facility] [address] [place], [address] Comprehensive Metabolic Prof txon 08-01-2024 Albumin [Mass/Vol] 4.3 g/dL Normal 3.4-4.8 [facility] Comment on above: Performed By: #### L 506.1001, L500.4050, L501.9520, L501.9985, L500.4100, L100.0100 #### [facility] [address] [place], [address] Albumin/Globulin [Mass ratio] 1.7 {ratio} Normal 0.9-2.4 [facility] Comment on above: Performed By: #### L 506.1001, L500.4050, L501.9520, L501.9985, L500.4100, L100.0100 #### [facility] [address] [place], [address] ALK PHOS 84 U/L Normal 40-129 [facility] Comment on above: Performed By: #### L 506.1001, L500.4050, L501.9520, L501.9985, L500.4100, L100.0100 #### [facility] [address] [place], [address] ALT [Catalytic activity/Vol] 17 U/L Normal <=46 [facility] Comment on above: Performed By: #### L 506.1001, L500.4050, L501.9520, L501.9985, L500.4100, L100.0100 #### [facility] [address] [place], [address] AST [Catalytic activity/Vol] 22 U/L Normal <=37 [facility] Comment on above: Performed By: #### L 506.1001, L500.4050, L501.9520, L501.9985, L500.4100, L100.0100 #### [facility] [address] [place], [address] Bilirubin [Mass/Vol] 0.68 mg/dL Normal 0.00-1.30 [facility] Comment on above: Performed By: #### L 506.1001, L500.4050, L501.9520, L501.9985, L500.4100, L100.0100 #### [facility] [address] [place], [address] BUN/CRE 10.9 RATIO Normal 10-20 [facility] Comment on above: Performed By: #### L 506.1001, L500.4050, L501.9520, L501.9985, L500.4100, L100.0100 #### [facility] [address] [place], [address] Calcium [Mass/Vol] 9.2 mg/dL Normal 7.6-11.0 [facility] Comment on above: Performed By: #### L 506.1001, L500.4050, L501.9520, L501.9985, L500.4100, L100.0100 #### [facility] [address] [place], [address] Chloride [Moles/Vol] 105 mmol/L Normal 98-108 [facility] Comment on above: Performed By: #### L 506.1001, L500.4050, L501.9520, L501.9985, L500.4100, L100.0100 #### [facility] [address] [place], [address] CO2 [Moles/Vol] 22.1 mmol/L Normal 21.0-32.0 [facility] Comment on above: Performed By: #### L 506.1001, L500.4050, L501.9520, L501.9985, L500.4100, L100.0100 #### [facility] [address] [place], [address] Creatinine [Mass/Vol] 1.46 mg/dL High 0.70-1.20 [facility] Comment on above: Performed By: #### L 506.1001, L500.4050, L501.9520, L501.9985, L500.4100, L100.0100 #### [facility] [address] [place], [address] GAP 15 Normal 5-15 [facility] Comment on above: Performed By: #### L 506.1001, L500.4050, L501.9520, L501.9985, L500.4100, L100.0100 #### [facility] [address] [place], [address] GFR/1.73 sq M.predicted among non-blacks MDRD (S/P/Bld) [Vol rate/Area] 47 mL/min/{1.73_m2} Low >60 [facility] Comment on above: Result Comment: mL/m in/1.73m2 CKD-EPI Creatinine Equation (2020) Performed By: #### L 506.1001, L500.4050, L501.9520, L501.9985, L500.4100, L100.0100 #### [facility] [address] [place], [address] Globulin (S) [Mass/Vol] 2.5 g/dL Normal 2.2-4.2 [facility] Comment on above: Performed By: #### L 506.1001, L500.4050, L501.9520, L501.9985, L500.4100, L100.0100 #### [facility] [address] [place], [address] Glucose [Mass/Vol] 127 mg/dL High 70-99 [facility] Comment on above: Performed By: #### L 506.1001, L500.4050, L501.9520, L501.9985, L500.4100, L100.0100 #### [facility] [address] [place], [address] Potassium [Moles/Vol] 3.8 mmol/L Normal 3.3-5.1 [facility] Comment on above: Performed By: #### L 506.1001, L500.4050, L501.9520, L501.9985, L500.4100, L100.0100 #### [facility] [address] [place], [address] Sodium [Moles/Vol] 142 mmol/L Normal 133-145 [facility] Comment on above: Performed By: #### L 506.1001, L500.4050, L501.9520, L501.9985, L500.4100, L100.0100 #### [facility] [address] [place], [address] T PROT 6.8 g/dL Normal 5.9-8.4 [facility] Comment on above: Performed By: #### L 506.1001, L500.4050, L501.9520, L501.9985, L500.4100, L100.0100 #### [facility] [address] [place], [address] Urea nitrogen [Mass/Vol] 16 mg/dL Normal 4-19 [facility] Comment on above: Performed By: #### L 506.1001, L500.4050, L501.9520, L501.9985, L500.4100, L100.0100 #### [facility] [address] [place], [address] Hemoglobin A1con 08-01-2024 HbA1c (Bld) [Mass fraction] 6.2 % High <=5.6 [facility] Comment on above: Result Comment: Norm al < 5.7 % Prediabetic 5.7 - 6.4 % Diabetic >or= 6.5 % Please note range changes. Performed By: #### L 506.1001, L500.4050, L501.9520, L501.9985, L500.4100, L100.0100 #### [facility] [address] [place], [address] Lipid Profileon 08-01-2024 CHOL:HDL 2.91 Normal [facility] Comment on above: Performed By: #### L 506.1001, L500.4050, L501.9520, L501.9985, L500.4100, L100.0100 #### [facility] [address] [place], [address] Cholesterol [Mass/Vol] 129 mg/dL Normal <=200 [facility] Comment on above: Result Comment: Chol esterol level, Desirable <200 mg/dL Borderline high cholesterol 200-239 mg/dL High cholesterol >=240 mg/dL Recommendations of the NCEP Adult Treatment Panel for the following risk-cutoff thresholds for the [place] population. Performed By: #### L 506.1001, L500.4050, L501.9520, L501.9985, L500.4100, L100.0100 #### [facility] [address], [address] Cholesterol in HDL [Mass/Vol] 44 mg/dL Normal [facility] Comment on above: Result Comment: Sally onal Cholesterol Education Program (NCEP) guidelines: <40 mg/dL: Low HDL-cholesterol (major risk factor for CHD) >= 60 mg/dL: High HDL-cholesterol (negative risk factor for CHD) HDL-cholesterol is affected by a number of factors, e.g. smoking, exercise, hormones, sex and age. Performed By: #### L 506.1001, L500.4050, L501.9520, L501.9985, L500.4100, L100.0100 #### [facility] [address] [place], [address] Cholesterol in LDL [Mass/Vol] 62 mg/dL Normal [facility] Comment on above: Result Comment: Bord wfsxsy=075-850 mg/dL Higher Qtmh=710 mg/dL or greater Performed By: #### L 506.1001, L500.4050, L501.9520, L501.9985, L500.4100, L100.0100 #### [facility] [address] [place], [address] Cholesterol in VLDL [Mass/Vol] 23 mg/dL Normal 5-40 [facility] Comment on above: Performed By: #### L 506.1001, L500.4050, L501.9520, L501.9985, L500.4100, L100.0100 #### [facility] [address] [place], [address] Triglyceride [Mass/Vol] 113 mg/dL Normal [facility] Comment on above: Result Comment: The drugs N-Acetylcysteine and Metamizole may falsely depress this assay. Normal range: <150 mg/dL Borderline High: 150-199 mg/dL High: 200-499 mg/dL Very High: >500 mg/dL Performed By: #### L 506.1001, L500.4050, L501.9520, L501.9985, L500.4100, L100.0100 #### [facility] [address] [place], [address] Thyroid Stim Hormone (TSH)on 08-01-2024 TSH 2.110 uIU/mL Normal 0.300-4.200 [facility] Comment on above: Performed By: #### L 506.1001, L500.4050, L501.9520, L501.9985, L500.4100, L100.0100 #### [facility] [address] [place], [address] Vitamin D,25 Hydroxyon 08-01 Vitamin D 25-OH 24.3 ng/mL Low 30-100 [facility] Comment on above: Result Comment: Maria Eugenia min D Status Deficiency: <20 ng/mL (50nmol/L) Insufficiency: 20-30 ng/mL (50-75 nmol/L) Sufficiency: 30-100 ng/mL (75-250 nmol/L) Toxicity: >100 ng/mL (>250 nmol/L) Performed By: #### L 506.1001, L500.4050, L501.9520, L501.9985, L500.4100, L100.0100 #### [facility] [address] [place], [address] Anion gap in Serum or Plasma Ordered By: Yamilka Jerry on 05-15-2024 Anion gap [Moles/Vol] 14 mmol/L 5-15 [facility] BUN/creatinine ratioOrdered By: Yamilka Jerry on 05-15-2024 Urea nitrogen/Creatinine [Mass ratio] 9.0 mg/mg Low 10-20 [facility] Carbon dioxide, total [Moles /volume] in Central venous bloodOrdered By: Yamilka Jerry on 05-15-2024 CO2 [Moles/Vol] 20.7 mmol/L Low 21.0-32.0 [facility] Chloride assayOrdered By: Francis Jerry on 05-15-2024 Chloride [Moles/Vol] 104 mmol/L 98-108 [facility] GFR/1.73 sq M.predicted palma g non-blacks MDRD (S/P/Bld) [Vol rate/Area]Ordered By: Yamilka Jerry on 05-15-2024 Estimated GFR (MDRD) Non-Af Amer 41 Low >60 [facility] Comment on above: mL/min/1.73m2 CKD-EP I Creatinine Equation (2020) Glomerular filtration rate ( GFR) estimation/1.73 sq m using serum, plasma, or whole bOrdered By: Yamilka Jerry on 05-15-2024 GFR/1.73 sq M.predicted among non-blacks MDRD (S/P/Bld) [Vol rate/Area] 41 mL/min/{1.73_m2} Low >60 [facility] Comment on above: mL/min/1.73m2 CKD-EP I Creatinine Equation (2020) Potassium (Unsp spec) [Mass/ Vol]Ordered By: Yamilka Jerry on 05-15-2024 Potassium [Moles/Vol] 4.0 mmol/L 3.3-5.1 [facility] Potassium measurement (mass/ volume)Ordered By: Yamilka Jerry on 05-15-2024 Potassium (Unsp spec) [Mass/Vol] 4.0 mmol/L 3.3-5.1 [facility] Renal Profileon 05-15-2024 Albumin [Mass/Vol] 4.5 g/dL Normal 3.4-4.8 [facility] Comment on above: Performed By: #### L 506.1001, L500.4050, L501.9520, L501.9985, L500.4100, L100.0100 #### [facility] [address] [place], [address] BUN/CRE 9.0 RATIO Low 10-20 [facility] Comment on above: Performed By: #### L 506.1001, L500.4050, L501.9520, L501.9985, L500.4100, L100.0100 #### [facility] [address] [place], [address] Calcium [Mass/Vol] 9.5 mg/dL Normal 7.6-11.0 [facility] Comment on above: Performed By: #### L 506.1001, L500.4050, L501.9520, L501.9985, L500.4100, L100.0100 #### [facility] [address] [place], [address] Chloride [Moles/Vol] 104 mmol/L Normal 98-108 [facility] Comment on above: Performed By: #### L 506.1001, L500.4050, L501.9520, L501.9985, L500.4100, L100.0100 #### [facility] [address] [place], [address] CO2 [Moles/Vol] 20.7 mmol/L Low 21.0-32.0 [facility] Comment on above: Performed By: #### L 506.1001, L500.4050, L501.9520, L501.9985, L500.4100, L100.0100 #### [facility] [address] [place], [address] Creatinine [Mass/Vol] 1.63 mg/dL High 0.70-1.20 [facility] Comment on above: Performed By: #### L 506.1001, L500.4050, L501.9520, L501.9985, L500.4100, L100.0100 #### [facility] [address] [place], [address] GAP 14 Normal 5-15 [facility] Comment on above: Performed By: #### L 506.1001, L500.4050, L501.9520, L501.9985, L500.4100, L100.0100 #### [facility] [address] [place], [address] GFR/1.73 sq M.predicted among non-blacks MDRD (S/P/Bld) [Vol rate/Area] 41 mL/min/{1.73_m2} Low >60 [facility] Comment on above: Result Comment: mL/m in/1.73m2 CKD-EPI Creatinine Equation (2020) Performed By: #### L 506.1001, L500.4050, L501.9520, L501.9985, L500.4100, L100.0100 #### [facility] [address] [place], [address] Glucose [Mass/Vol] 112 mg/dL High 70-99 [facility] Comment on above: Performed By: #### L 506.1001, L500.4050, L501.9520, L501.9985, L500.4100, L100.0100 #### [facility] [address] [place], [address] Phosphate [Mass/Vol] 2.1 mg/dL Low 2.7-4.5 [facility] Comment on above: Performed By: #### L 506.1001, L500.4050, L501.9520, L501.9985, L500.4100, L100.0100 #### [facility] [address] [place], [address] Potassium [Moles/Vol] 4.0 mmol/L Normal 3.3-5.1 [facility] Comment on above: Performed By: #### L 506.1001, L500.4050, L501.9520, L501.9985, L500.4100, L100.0100 #### [facility] [address] [place], [address] Sodium [Moles/Vol] 139 mmol/L Normal 133-145 [facility] Comment on above: Performed By: #### L 506.1001, L500.4050, L501.9520, L501.9985, L500.4100, L100.0100 #### [facility] [address] [place], [address] Urea nitrogen [Mass/Vol] 15 mg/dL Normal 4-19 [facility] Comment on above: Performed By: #### L 506.1001, L500.4050, L501.9520, L501.9985, L500.4100, L100.0100 #### [facility] [address] [place], [address] Serum creatinine measurement (mass/volume)Ordered By: Yamilka Jerry on 05-15-2024 Creatinine [Mass/Vol] 1.63 mg/dL High 0.70-1.20 [facility] Serum glucose measurement (m ass/volume)Ordered By: Yamilka Jerry on 05-15-2024 Glucose [Mass/Vol] 112 mg/dL High 70-99 [facility] Serum or plasma albumin mike urement (mass/volume)Ordered By: Yamilka Jerry on 05-15-2024 Albumin [Mass/Vol] 4.5 g/dL 3.4-4.8 [facility] Serum or plasma calcium mike urement (mass/volume)Ordered By: Yamilka Jerry on 05-15-2024 Calcium [Mass/Vol] 9.5 mg/dL 7.6-11.0 [facility] Serum or plasma urea nitroge n measurement (mass/volume)Ordered By: Yamilka Jerry on 05-15-2024 Urea nitrogen [Mass/Vol] 15 mg/dL 4-19 [facility] Serum phosphorus measurement Ordered By: Yamilka Jerry on 05-15-2024 Phosphorus Level 2.1 mg/dL Low 2.7-4.5 [facility] Sodium levelOrdered By: Bijal Jerry on 05-15-2024 Sodium [Moles/Vol] 139 mmol/L 133-145 [facility] 68-AJ-Sxrznaj DOrdered By: Helena Feliz on 01-20-2024 Vitamin D 25-Hydroxy 27.5 ng/mL [facility] Comment on above: Vitamin D 25(OH) Sta tus Range Deficiency <20 ng/mL (50nmol/L) Insufficiency 20 - 30 ng/mL (50 - 75 nmol/L) Sufficiency 30 - 100 ng/mL (75 - 250 nmol/L) Toxicity >100 ng/mL (>250 nmol/L) Absolute neutrophil countOrd ered By: Chris Feliz on 01-20-2024 Neutrophils (Bld) [#/Vol] 2.0 10*3/uL 2.0-7.7 [facility] Albumin to globulin ratioOrd ered By: Chris Feliz on 01-20-2024 Albumin/Globulin [Mass ratio] 1.2 {ratio} 0.9-2.4 [facility] Basophil percentageOrdered B y: Chris Feliz on 01-20-2024 Basophils/100 WBC (Bld) 1.2 % High 0-1 [facility] Bilirubin, totalOrdered By: Chris Feliz on 01-20-2024 Bilirubin [Mass/Vol] 0.70 mg/dL 0.20-1.00 [facility] Comment on above: For patients on eltr ombopag therapy, use of Dimension [place] TBIL is not recommended. Blood urea nitrogen (BUN)/cr eatinine ratioOrdered By: Chris Feliz on 01-20-2024 Urea nitrogen/Creatinine [Mass ratio] 15.4 mg/mg 10-20 [facility] CBC W/Diff, Automatedon 01-08 Absolute Lymph 0.82 X10 3/uL Low 0.83-4.51 [facility] Comment on above: Performed By: #### L 500.4050, L100.0100, L500.4100, L501.9985, L506.1000, L501.9520 #### [facility] [address] [place], [address] Absolute Neut 2.0 X10 3/uL Normal 2.0-7.7 [facility] Comment on above: Performed By: #### L 500.4050, L100.0100, L500.4100, L501.9985, L506.1000, L501.9520 #### [facility] [address] [place], [address] Basophils/100 WBC (Bld) 1.2 % High 0-1 [facility] Comment on above: Performed By: #### L 500.4050, L100.0100, L500.4100, L501.9985, L506.1000, L501.9520 #### [facility] [address] [place], [address] Eosinophils/100 WBC (Bld) 3.7 % Normal 0-5 [facility] Comment on above: Performed By: #### L 500.4050, L100.0100, L500.4100, L501.9985, L506.1000, L501.9520 #### [facility] [address] [place], [address] Erythrocyte distribution width (RBC) [Ratio] 13.2 % Normal 11.6-14.6 [facility] Comment on above: Performed By: #### L 500.4050, L100.0100, L500.4100, L501.9985, L506.1000, L501.9520 #### [facility] [address] [place], [address] Hematocrit (Bld) [Volume fraction] 41.2 % Normal 40-54 [facility] Comment on above: Performed By: #### L 500.4050, L100.0100, L500.4100, L501.9985, L506.1000, L501.9520 #### [facility] [address] [place], [address] Hemoglobin (Bld) [Mass/Vol] 14.1 g/dL Normal 13.0-16.5 [facility] Comment on above: Performed By: #### L 500.4050, L100.0100, L500.4100, L501.9985, L506.1000, L501.9520 #### [facility] [address] [place], [address] IG% 0.000 Normal 0.0-0.9 [facility] Comment on above: Result Comment: IG% - Immature Granulocytes (promyelocytes, myelocytes and metamyelocytes) > 1% indicates that a LEFT SHIFT is Present. Performed By: #### L 500.4050, L100.0100, L500.4100, L501.9985, L506.1000, L501.9520 #### [facility] [address] [place], [address] Lymphocytes/100 WBC (Bld) 23.6 % Normal 19-41 [facility] Comment on above: Performed By: #### L 500.4050, L100.0100, L500.4100, L501.9985, L506.1000, L501.9520 #### [facility] [address] [place], [address] MCH (RBC) [Entitic mass] 33.1 pg High 27.0-32.0 [facility] Comment on above: Performed By: #### L 500.4050, L100.0100, L500.4100, L501.9985, L506.1000, L501.9520 #### [facility] [address] [place], [address] MCHC (RBC) [Mass/Vol] 34.2 g/dL Normal 32-36 [facility] Comment on above: Performed By: #### L 500.4050, L100.0100, L500.4100, L501.9985, L506.1000, L501.9520 #### [facility] [address] [place], [address] MCV (RBC) [Entitic vol] 96.7 fL High 80-94 [facility] Comment on above: Performed By: #### L 500.4050, L100.0100, L500.4100, L501.9985, L506.1000, L501.9520 #### [facility] [address] [place], [address] Monocytes/100 WBC (Bld) 14.1 % High 0-10 [facility] Comment on above: Performed By: #### L 500.4050, L100.0100, L500.4100, L501.9985, L506.1000, L501.9520 #### [facility] [address] [place], [address] Neutrophils/100 WBC (Bld) 57.4 % Normal 47-70 [facility] Comment on above: Performed By: #### L 500.4050, L100.0100, L500.4100, L501.9985, L506.1000, L501.9520 #### [facility] [address] [place], [address] Nucleated RBC (Bld) [#/Vol] 0 10*3/uL Normal 0-5 [facility] Comment on above: Performed By: #### L 500.4050, L100.0100, L500.4100, L501.9985, L506.1000, L501.9520 #### [facility] [address] [place], [address] Platelet mean volume (Bld) [Entitic vol] 11.5 fL Normal 6.2-12.0 [facility] Comment on above: Performed By: #### L 500.4050, L100.0100, L500.4100, L501.9985, L506.1000, L501.9520 #### [facility] [address] [place], [address] Platelets (Bld) [#/Vol] 149 10*3/uL Low 150-450 [facility] Comment on above: Performed By: #### L 500.4050, L100.0100, L500.4100, L501.9985, L506.1000, L501.9520 #### [facility] [address] [place], [address] RBC (Bld) [#/Vol] 4.26 10*6/uL Low 4.6-6.2 [facility] Comment on above: Performed By: #### L 500.4050, L100.0100, L500.4100, L501.9985, L506.1000, L501.9520 #### [facility] [address] [place], [address] RDW SD 47.5 fl High 35.1-43.9 [facility] Comment on above: Performed By: #### L 500.4050, L100.0100, L500.4100, L501.9985, L506.1000, L501.9520 #### [facility] [address] [place], [address] WBC (Bld) [#/Vol] 3.5 10*3/uL Low 4.4-11.0 [facility] Comment on above: Performed By: #### L 500.4050, L100.0100, L500.4100, L501.9985, L506.1000, L501.9520 #### [facility] [address] [place], [address] Carbon dioxide measurementOr dered By: Chris Feliz on 01-20-2024 CO2 [Moles/Vol] 25.0 mmol/L 21.0-32.0 [facility] Chloride measurementOrdered By: Chris Feliz on 01-20-2024 Chloride [Moles/Vol] 105 mmol/L 98-107 [facility] Comprehensive Metabolic Prof ilon 01-20-2024 Albumin [Mass/Vol] 4.1 g/dL Normal 3.2-5.0 [facility] Comment on above: Performed By: #### L 506.1001, L500.4050, L501.9520, L501.9985, L500.4100, L100.0100 #### [facility] [address] [place], [address] Albumin/Globulin [Mass ratio] 1.2 {ratio} Normal 0.9-2.4 [facility] Comment on above: Performed By: #### L 506.1001, L500.4050, L501.9520, L501.9985, L500.4100, L100.0100 #### [facility] [address] [place], [address] ALK P 91 U/L Normal 45-117 [facility] Comment on above: Performed By: #### L 506.1001, L500.4050, L501.9520, L501.9985, L500.4100, L100.0100 #### [facility] [address] [place], [address] ALT [Catalytic activity/Vol] 28 U/L Normal 16-61 [facility] Comment on above: Performed By: #### L 506.1001, L500.4050, L501.9520, L501.9985, L500.4100, L100.0100 #### [facility] [address] [place], [address] AST [Catalytic activity/Vol] 19 U/L Normal 15-37 [facility] Comment on above: Performed By: #### L 506.1001, L500.4050, L501.9520, L501.9985, L500.4100, L100.0100 #### [facility] [address] [place], [address] Bilirubin [Mass/Vol] 0.70 mg/dL Normal 0.20-1.00 [facility] Comment on above: Result Comment: For patients on eltrombopag therapy, use of Dimension [place] TBIL is not recommended. Performed By: #### L 506.1001, L500.4050, L501.9520, L501.9985, L500.4100, L100.0100 #### [facility] [address] [place], [address] BUN/CRE 15.4 RATIO Normal 10-20 [facility] Comment on above: Performed By: #### L 506.1001, L500.4050, L501.9520, L501.9985, L500.4100, L100.0100 #### [facility] [address] [place], [address] CA,Total 9.7 mg/dL Normal 8.5-10.1 [facility] Comment on above: Performed By: #### L 506.1001, L500.4050, L501.9520, L501.9985, L500.4100, L100.0100 #### [facility] [address] [place], [address] Chloride [Moles/Vol] 105 mmol/L Normal 98-107 [facility] Comment on above: Performed By: #### L 506.1001, L500.4050, L501.9520, L501.9985, L500.4100, L100.0100 #### [facility] [address] [place], [address] CO2 [Moles/Vol] 25.0 mmol/L Normal 21.0-32.0 [facility] Comment on above: Performed By: #### L 506.1001, L500.4050, L501.9520, L501.9985, L500.4100, L100.0100 #### [facility] [address] [place], [address] Creatinine [Mass/Vol] 1.69 mg/dL High 0.70-1.30 [facility] Comment on above: Result Comment: The validity of the calculated GFR GFRAA in patients over 70 years has not been determined. Clinical correlation is essential. Performed By: #### L 506.1001, L500.4050, L501.9520, L501.9985, L500.4100, L100.0100 #### [facility] [address] [place], [address] EST GFR - AA 50 mL/min Low >60 [facility] Comment on above: Result Comment: Afri can Cymraes GFR Calc Performed By: #### L 506.1001, L500.4050, L501.9520, L501.9985, L500.4100, L100.0100 #### [facility] [address] [place], [address] GAP 7 Normal 5-15 [facility] Comment on above: Performed By: #### L 506.1001, L500.4050, L501.9520, L501.9985, L500.4100, L100.0100 #### [facility] [address] [place], [address] GFR/1.73 sq M.predicted among non-blacks MDRD (S/P/Bld) [Vol rate/Area] 41 mL/min/{1.73_m2} Low >60 [facility] Comment on above: Result Comment: Non- GFR Calc Performed By: #### L 506.1001, L500.4050, L501.9520, L501.9985, L500.4100, L100.0100 #### [facility] [address] [place], [address] Globulin (S) [Mass/Vol] 3.3 g/dL Normal 2.2-4.2 [facility] Comment on above: Performed By: #### L 506.1001, L500.4050, L501.9520, L501.9985, L500.4100, L100.0100 #### [facility] [address] [place], [address] Glucose [Mass/Vol] 126 mg/dL High 74-106 [facility] Comment on above: Result Comment: Fast ing Glucose result greater than or equal to 126 mg/dL suggests DIABETES MELLITUS per A.D.A. criteria. Performed By: #### L 506.1001, L500.4050, L501.9520, L501.9985, L500.4100, L100.0100 #### [facility] [address] [place], [address] Potassium [Moles/Vol] 4.0 mmol/L Normal 3.5-5.1 [facility] Comment on above: Performed By: #### L 506.1001, L500.4050, L501.9520, L501.9985, L500.4100, L100.0100 #### [facility] [address] [place], [address] Sodium [Moles/Vol] 137 mmol/L Normal 136-145 [facility] Comment on above: Performed By: #### L 506.1001, L500.4050, L501.9520, L501.9985, L500.4100, L100.0100 #### [facility] [address] [place], [address] T PROT 7.4 g/dL Normal 6.4-8.2 [facility] Comment on above: Performed By: #### L 506.1001, L500.4050, L501.9520, L501.9985, L500.4100, L100.0100 #### [facility] [address] [place], [address] Urea nitrogen [Mass/Vol] 26 mg/dL High 7-18 [facility] Comment on above: Performed By: #### L 506.1001, L500.4050, L501.9520, L501.9985, L500.4100, L100.0100 #### [facility] [address] [place], [address] Eosinophil percentageOrdered By: Chris Feliz on 01-20-2024 Eosinophils/100 WBC (Bld) 3.7 % 0-5 [facility] Erythrocyte distribution wid th (RBC) [Ratio]Ordered By: Chris Feliz on 01-20-2024 Erythrocyte distribution width (RBC) [Entitic vol] 47.5 fL High 35.1-43.9 [facility] Erythrocyte distribution wid th ratioOrdered By: Chris Feliz on 01-20-2024 Erythrocyte distribution width (RBC) [Ratio] 13.2 % 11.6-14.6 [facility] Estimated glomerular filtrat ion rate (GFR) AmericanOrdered By: Chris Feliz on 01-20-2024 Estimated GFR (MDRD) Amer 50 mL/min Low >60 [facility] Comment on above: GFR Calc Glomerular filtration rate ( GFR) estimationOrdered By: Chris Feliz 01-20-2024 Estimated GFR (MDRD) Non-Af Amer 41 mL/min Low >60 [facility] Comment on above: Non- GFR Calc Glucose measurementOrdered B y: Chris Feliz on 01-20-2024 Glucose [Mass/Vol] 126 mg/dL High 74-106 [facility] Comment on above: Fasting Glucose resu lt greater than or equal to 126 mg/dL suggests DIABETES MELLITUS per A.D.A. criteria. Hematocrit Auto (Bld) [Volum e fraction]Ordered By: Chris Feliz on 01-20-2024 Hematocrit (Bld) [Volume fraction] 41.2 % 40-54 [facility] Hemoglobin A1con 01-20-2024 HbA1c (Bld) [Mass fraction] 6.4 % High 3.8-5.6 [facility] Comment on above: Result Comment: Norm al < 5.7 % Prediabetic 5.7 - 6.4 % Diabetic >or= 6.5 % Please note range changes. Performed By: #### L 506.1001, L500.4050, L501.9520, L501.9985, L500.4100, L100.0100 #### [facility] [address] [place], [address] Hemoglobin A1c percentageOrd ered By: Chris Feliz on 01-20-2024 HbA1c (Bld) [Mass fraction] 6.4 % High 3.8-5.6 [facility] Comment on above: Normal < 5.7 % Predi abetic 5.7 - 6.4 % Diabetic >or= 6.5 % Please note range changes. Hemoglobin measurementOrdere d By: Chris Feliz on 01-20-2024 Hemoglobin (Bld) [Mass/Vol] 14.1 g/dL 13.0-16.5 [facility] High density lipoprotein (HD L) measurementOrdered By: Chris Feliz on 01-20-2024 Cholesterol in HDL [Mass/Vol] 52 mg/dL >40 [facility] Comment on above: The drugs N-Acetylcy steine and Metamizole may falsely depress this assay. Reference Range HDL <40 mg/dL Low HDL Cholesterol HDL >or= 60 mg/dL High HDL Cholesterol Immature granulocytes/100 WB C Auto (Bld)Ordered By: Chris Feliz on 01-20-2024 Immature granulocytes/100 WBC (Bld) 0.000 % 0.0-0.9 [facility] Comment on above: IG% - Immature Granu locytes (promyelocytes, myelocytes and metamyelocytes) > 1% indicates that a LEFT SHIFT is Present. Laboratory - Chemistry and C hemistry - challengeOrdered By: Chris Feliz on 01-20-2024 AST [Catalytic activity/Vol] 19 U/L 15-37 [facility] Lipid Profileon 01-20-2024 Cholesterol [Mass/Vol] 145 mg/dL Normal 200 [facility] Comment on above: Result Comment: <200 mg/dL Desirable 200-240 mg/dL Borderline >240 mg/dL High Risk Performed By: #### L 506.1001, L500.4050, L501.9520, L501.9985, L500.4100, L100.0100 #### [facility] [address] [place], [address] Cholesterol in HDL [Mass/Vol] 52 mg/dL Normal [facility] Comment on above: Result Comment: The drugs N-Acetylcysteine and Metamizole may falsely depress this assay. Reference Range HDL <40 mg/dL Low HDL Cholesterol HDL >or= 60 mg/dL High HDL Cholesterol Performed By: #### L 506.1001, L500.4050, L501.9520, L501.9985, L500.4100, L100.0100 #### [facility] [address] [place], [address] Cholesterol in LDL [Mass/Vol] 71 mg/dL Normal 0-130 [facility] Comment on above: Performed By: #### L 506.1001, L500.4050, L501.9520, L501.9985, L500.4100, L100.0100 #### [facility] [address] [place], [address] Cholesterol in VLDL [Mass/Vol] 22 mg/dL Normal 5-40 [facility] Comment on above: Performed By: #### L 506.1001, L500.4050, L501.9520, L501.9985, L500.4100, L100.0100 #### [facility] [address] [place], [address] Triglyceride [Mass/Vol] 109 mg/dL Normal [facility] Comment on above: Result Comment: The drugs N-Acetylcysteine and Metamizole may falsely depress this assay. Serum Triglycerides Reference Interval Normal <150 mg/dL Borderline high 150 - 199 mg/dL High 200 - 499 mg/dL Very High > or = 500 mg/dL Performed By: #### L 506.1001, L500.4050, L501.9520, L501.9985, L500.4100, L100.0100 #### [facility] [address] [place], [address] Low density lipoprotein (LDL ) cholesterol measurementOrdered By: Chris Feliz on 01-20-2024 Cholesterol in LDL [Mass/Vol] 71 mg/dL 0-130 [facility] Lymphocytes Auto (Unsp spec) [#/Vol]Ordered By: Chris Feliz on 01-20-2024 Lymphocytes (Bld) [#/Vol] 0.82 10*3/uL Low 0.83-4.5 1 [facility] Lymphocytes/100 WBC Auto (Un sp spec)Ordered By: Chris Feliz on 01-20-2024 Lymphocytes/100 WBC (Bld) 23.6 % 19-41 [facility] MCV (mean corpuscular volume ) determinationOrdered By: Chris Feliz 01-20-2024 MCV (RBC) [Entitic vol] 96.7 fL High 80-94 [facility] Mean corpuscular hemoglobin (MCH) determinationOrdered By: Chris Feliz 01-20-2024 MCH (RBC) [Entitic mass] 33.1 pg High 27.0-32.0 [facility] Mean corpuscular hemoglobin concentration (MCHC) determinationOrdered By: Chris Feliz 01-20-2024 MCHC (RBC) [Mass/Vol] 34.2 g/dL 32-36 [facility] Mean platelet volume determi nationOrdered By: Chris Feliz on 01-20-2024 Platelet mean volume (Bld) [Entitic vol] 11.5 fL 6.2-12.0 [facility] Monocyte percentageOrdered B y: Chris Feliz on 01-20-2024 Monocytes/100 WBC (Bld) 14.1 % High 0-10 [facility] Neutrophil percentageOrdered By: Chris Feliz on 01-20-2024 Neutrophils/100 WBC (Bld) 57.4 % 47-70 [facility] Nucleated red blood cell per centageOrdered By: Chris Feliz on 01-20-2024 Nucleated RBC/100 WBC (Bld) [Ratio] 0 % 0-5 [facility] Platelet countOrdered By: Nestor Feliz on 01-20-2024 Platelets (Bld) [#/Vol] 149 10*3/uL Low 150-450 [facility] Potassium measurementOrdered By: Chris Feliz on 01-20-2024 Potassium [Moles/Vol] 4.0 mmol/L 3.5-5.1 [facility] RBC Auto (Bld) [#/Vol]Ordere d By: Chris Feliz on 01-20-2024 RBC (Bld) [#/Vol] 4.26 10*6/uL Low 4.6-6.2 [facility] Serum anion gap measurementO rdered By: Chris Feliz on 01-20-2024 Anion gap [Moles/Vol] 7 mmol/L 5-15 [facility] Serum globulin measurementOr dered By: Chris Feliz on 01-20-2024 Globulin (S) [Mass/Vol] 3.3 g/dL 2.2-4.2 [facility] Serum or plasma alanine nunez otransferase (ALT) measurementOrdered By: Chris Feliz 01-20-2024 ALT [Catalytic activity/Vol] 28 U/L 16-61 [facility] Serum or plasma albumin mike urement (mass/volume)Ordered By: Chris Feliz 01-20-2024 Albumin [Mass/Vol] 4.1 g/dL 3.2-5.0 [facility] Serum or plasma alkaline rosalio sphatase measurementOrdered By: Chris Feliz 01-20-2024 ALP [Catalytic activity/Vol] 91 U/L 45-117 [facility] Serum or plasma calcium mike urement (mass/volume)Ordered By: Chris Feliz 01-20-2024 Calcium [Mass/Vol] 9.7 mg/dL 8.5-10.1 [facility] Serum or plasma cholesterol measurement (mass/volume)Ordered By: Chris Feliz on 01-20-2024 Cholesterol [Mass/Vol] 145 mg/dL <200 [facility] Comment on above: <200 mg/dL Desirable 200-240 mg/dL Borderline >240 mg/dL High Risk Serum or plasma creatinine m easurement (mass/volume)Ordered By: Chris Feliz on 01-20-2024 Creatinine [Mass/Vol] 1.69 mg/dL High 0.70-1.30 [facility] Comment on above: The validity of the calculated GFR & GFRAA in patients over 70 years has not been determined. Clinical correlation is essential. Serum or plasma urea nitroge n measurement (mass/volume)Ordered By: Chris Feliz on 01-20-2024 Urea nitrogen [Mass/Vol] 26 mg/dL High 7-18 [facility] Sodium levelOrdered By: Chris Feliz on 01-20-2024 Sodium [Moles/Vol] 137 mmol/L 136-145 [facility] TSH QnOrdered By: Chris Feliz o n 01-20-2024 Thyroid Stimulating Hormone (TSH) 2.450 uIU/mL 0.358-3.740 [facility] Thyroid Stim Hormone (TSH)on 01-20-2024 TSH 2.450 uIU/mL Normal 0.358-3.740 [facility] Comment on above: Performed By: #### L 506.1001, L500.4050, L501.9520, L501.9985, L500.4100, L100.0100 #### [facility] [address] [place], [address] Total proteinOrdered By: Chris Feliz on 01-20-2024 Protein [Mass/Vol] 7.4 g/dL 6.4-8.2 [facility] Triglycerides measurementOrd ered By: Chris Feliz on 01-20-2024 Triglyceride [Mass/Vol] 109 mg/dL <199 [facility] Comment on above: The drugs N-Acetylcy steine and Metamizole may falsely depress this assay.Serum Triglycerides Reference Interval Normal <150 mg/dL Borderline high 150 - 199 mg/dL High 200 - 499 mg/dL Very High > or = 500 mg/dL Very low density lipoprotein (VLDL) cholesterol measurementOrdered By: Chris Feliz on 01-20-2024 VLDL Cholesterol 22 mg/dL 5-40 [facility] Vitamin D,25 Hydroxyon 01-19 Vitamin D 25-OH 27.5 ng/mL Normal [facility] Comment on above: Result Comment: Maria Eugenia min D 25(OH) Status Range Deficiency <20 ng/mL (50nmol/L) Insufficiency 20 - 30 ng/mL (50 - 75 nmol/L) Sufficiency 30 - 100 ng/mL (75 - 250 nmol/L) Toxicity >100 ng/mL (>250 nmol/L) Performed By: #### L 500.4050, L100.0100, L500.4100, L501.9985, L506.1000, L501.9520 #### [facility] [address] [place], [address] White blood cell (WBC) count Ordered By: Chris Feliz on 01-20-2024 WBC (Bld) [#/Vol] 3.5 10*3/uL Low 4.4-11.0 [facility] Basic Metabolic Profile (BMP )on 08-10-2023 BUN/CRE 10.7 RATIO Normal 10-20 [facility] Comment on above: Performed By: #### L 500.2500 #### [facility] [address] [place], [address] CA,Total 9.1 mg/dL Normal 8.5-10.1 [facility] Comment on above: Performed By: #### L 500.2500 #### [facility] [address] [place], [address] Chloride [Moles/Vol] 106 mmol/L Normal 98-107 [facility] Comment on above: Performed By: #### L 500.2500 #### [facility] [address] [place], [address] CO2 [Moles/Vol] 26.0 mmol/L Normal 21.0-32.0 [facility] Comment on above: Performed By: #### L 500.2500 #### [facility] [address] [place], [address] Creatinine [Mass/Vol] 1.50 mg/dL High 0.70-1.30 [facility] Comment on above: Result Comment: The validity of the calculated GFR GFRAA in patients over 70 years has not been determined. Clinical correlation is essential. Performed By: #### L 500.2500 #### [facility] [address] [place], [address] EST GFR - AA 57 mL/min Low >60 [facility] Comment on above: Result Comment: Afri can Cymraes GFR Calc Performed By: #### L 500.2500 #### [facility] [address] [place], [address] GAP 7 Normal 5-15 [facility] Comment on above: Performed By: #### L 500.2500 #### [facility] [address] [place], [address] GFR/1.73 sq M.predicted among non-blacks MDRD (S/P/Bld) [Vol rate/Area] 47 mL/min/{1.73_m2} Low >60 [facility] Comment on above: Result Comment: Non- GFR Calc Performed By: #### L 500.2500 #### [facility] [address] [place], [address] Glucose [Mass/Vol] 119 mg/dL High 74-106 [facility] Comment on above: Result Comment: Fast ing Glucose result from 100 to 125 mg/dL suggests IMPAIRED HOMEOSTASIS per A.D.A. criteria. Performed By: #### L 500.2500 #### [facility] [address] [place], [address] Potassium [Moles/Vol] 3.6 mmol/L Normal 3.5-5.1 [facility] Comment on above: Performed By: #### L [id number] #### [facility] [address] [place], [address] Sodium [Moles/Vol] 139 mmol/L Normal 136-145 [facility] Comment on above: Performed By: #### L [id number] #### [facility] [address] [place], [address] Urea nitrogen [Mass/Vol] 16 mg/dL Normal 7-18 [facility] Comment on above: Performed By: #### L 500.2500 #### [facility] [address] [place], [address] Emergency Department Summary on 08-04-2023 Emergency Department Summary [facility] Medical Records Department [address] [place] [address] Emergency Department Summary 08/04/23 MR#: [id number] Acct: [id number] Name: HARSH DIAZ Rep #: [id number] : 1940 83 From: Sanjeev Biggs DO PCP: Dr. Chris Feliz MD Status:DEP ER Location: ED HPI History of Present Illness Chief Complaint: Foreign Body Informant: patient Narrative Narrative: 83-year-old male presenting to the emergency room with foreign body in the left ear canal. Patient states that he was working with his hearing aid when the rubber piece came off. He tried to retrieve it but was unable to do so. 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 History of colorectal cancer Home Medications ???Medication ???Instructions ???Recorded ???Last Taken ???Type esomeprazole magnesium 20 mg 40 mg PO DAILY 10/01/18 Unknown History capsule,delayed release losartan 100 mg tablet 100 mg PO DAILY 10/01/18 Unknown History rosuvastatin 40 mg tablet 40 mg PO DAILY 10/01/18 Unknown History vit A 300 mcg-C 200 mg-E 27 1 ea PO BID 10/01/18 Unknown History mg-lutein 2 mg and minerals tablet Allergy/AdvReac Type Severity Reaction Status Date / Time Tetanus Vaccines and Toxoid Allergy Angioedema Verified 08/04/23 20:16 Surgical History History of right hemicolectomy History of colostomy Social History Smoking Status: Former smoker ROS ROS ED Constitutional Constitutional ED: Denies chills or weight loss Eyes Eyes: Denies change in vision or diplopia ENT ENT ED: Reports other Details: See history of present illness ; Denies ear pain, rhinorrhea or sore throat Cardiovascular Cardiovascular: Denies chest pain, orthopnea, palpitations or racing heartbeat Respiratory/Chest Respiratory/Chest: Denies cough, dyspnea or orthopnea Gastrointestinal Gastrointestinal: Denies abdominal pain, diarrhea, nausea or vomiting Genitourinary Genitourinary ED: Denies dysuria, hematuria or urinary frequency Musculoskeletal Musculoskeletal: Denies arthralgias or myalgias Integumentary Denies abscess or rash Neurologic Neurologic: Denies headache(s) or weakness Psychiatric Psychiatric: Denies anxiety, depression, suicidal ideation or suicidal thoughts Endocrine Endocrinology: Denies polydipsia, polyphagia or polyuria Allergic/Immunolog ic Allergic/Immunolog ic ED: Denies mouth swelling, tongue swelling or urticaria EXAM Physical Exam Const Vital Signs: 08/04/23 20:16 Temperature 96.9 F L Temperature Source Temporal Pulse Rate 79 Respiratory Rate 18 Blood Pressure 166/85 H Blood Pressure Mean 112 Pulse Ox 100 Oxygen Delivery Method Room Air Positive well nourished and well developed General Appearance ED: well developed HEENT Reports normocephalic, head/scalp atraumatic and moist mucous membranes HEENT Narrative: There is a piece of rubber in the right ear canal Eyes PERRL and EOMs intact bilaterally Neck no lymphadenopathy, supple and no JVD Resp normal respiratory effort and clear to auscultation bilaterally Cardio regular rate, regular rhythm and no murmurs GI normal to inspection, nondistended, normoactive bowel sounds and non-tender Palpation: soft Back/Spine no CVA tenderness and normal ROM Extremity normal to inspection General Extremety ED: Negative for edema General Extremity: Negative for edema Neuro oriented x3 and CN's II-XII intact bilaterally Sensorium / Orientation: alert Motor Exam: strength 5/5 throughout Psych mental status grossly normal Mood Affect: Negative for depressed or tearful Skin no rashes or lesions noted and no wounds MDM MDM MDM Narrative Medical decision making narrative: Using headlamp and alligator forceps prepuce of the hearing aid was grasped and easily removed. Tympanic membrane is intact. No trauma to the ear canal noted. Patient was given the foreign body in a specimen container. History Record Review Discussion w/independent historian: Patient Discharge Plan Triage Chief Complaint: Foreign Body ED Provider: Sanjeev Biggs Dx/Rx/DC Orders Clinical Impression: Foreign body in right ear Instructions: ED Foreign Body, Ear Canal (Removed) Prescriptions: No Action losartan 100 MG tablet 100 mg PO DAILY esomeprazole magnesium 20 MG capsule,delayed release(DR/EC) 40 mg PO DAILY rosuvastatin 40 MG tablet 40 mg PO DAILY vit A,C and D-[id number] 1 EACH tablet 1 ea PO BID Primary Care Provider: Chris Feliz Chi Referrals: Chris Feliz Chi, MD [Primary Care Provider] - As Needed (more content not included)... Normal [facility] Basophil percentageOrdered B y: Yamilka Jerry on 05-05-2023 Basophil percentage 2.8 mg/dL 2.5-4.9 [facility] Chloride [Moles/Vol] 109 mmol/L 98-107 [facility] Glucose [Mass/Vol] 111 mg/dL 74-106 [facility] Comment on above: Fasting Glucose resu lt from 100 to 125 mg/dL suggests IMPAIRED HOMEOSTASIS per A.D.A. criteria. Potassium [Moles/Vol] 3.7 mmol/L 3.5-5.1 [facility] Sodium [Moles/Vol] 140 mmol/L 136-145 [facility] - Chemistry and C hemistry - challengeOrdered By: Yamilka Jerry on 05-05-2023 CO2 [Moles/Vol] 24.0 mmol/L 21.0-32.0 [facility] Urea nitrogen/Creatinine [Mass ratio] 17.6 mg/mg 10-20 [facility] No Panel InformationOrdered By: Yamilka Jerry on 05-05-2023 Estimated GFR (MDRD) Amer 64 mL/min >60 [facility] Comment on above: GFR Calc Estimated GFR (MDRD) Non-Af Amer 53 mL/min >60 [facility] Comment on above: Non- GFR Calc Serum or plasma calcium mike urement (mass/volume)Ordered By: Yamilka Jerry on 05-05-2023 Calcium [Mass/Vol] 9.3 mg/dL 8.5-10.1 [facility] Serum or plasma creatinine m easurement (mass/volume)Ordered By: Yamilka Jerry on 05-05-2023 Creatinine [Mass/Vol] 1.36 mg/dL 0.70-1.30 [facility] Comment on above: The validity of the calculated GFR & GFRAA in patients over 70 years has not been determined. Clinical correlation is essential. Serum or plasma urea nitroge n measurement (mass/volume)Ordered By: Yamilka Jerry on 05-05-2023 Urea nitrogen [Mass/Vol] 24 mg/dL 7-18 [facility] Thin prep Papanicolaou smear with manual screeningOrdered By: Yamilka Jerry on 05-05-2023 Protein (U) [Mass/Vol] 32.1 mg/dL 0.0-11.8 [facility] Thin prep Papanicolaou smear with manual screening 3.8 g/dL 3.2-5.0 [facility] Urine creatinine measurement (mass/volume)Ordered By: Yamilka Jerry on 05-05-2023 Creatinine (U) [Mass/Vol] 110.00 mg/dL NO RANGE EST. [facility] Urine protein/creatinine mas s ratioOrdered By: Yamilka Jerry on 05-05-2023 Protein/Creatinine (U) [Mass ratio] 292 mg/g CRE 0-200 [facility] Absolute lymphocyte countOrd ered By: Chris Feliz on 01-20-2023 Lymphocytes Auto (Unsp spec) [#/Vol] 0.61 10*3/uL 0.83-4.51 [facility] Anisocytosis LM Ql (Bld)Orde red By: Chris Feliz on 01-20-2023 Anisocytosis Ql (Bld) STATE ASSESSED PROPERTIES DIRECTOR [facility] Kallie rods detectionOrdered B y: Chris Feliz on 01-20-2023 Kallie rods LM Ql (Bld) STATE ASSESSED PROPERTIES DIRECTOR [facility] Basophil percentageOrdered B y: Chris Feliz on 01-20-2023 Basophil percentage STATE ASSESSED PROPERTIES DIRECTOR [facility] Basophils/100 WBC (Bld) 1.1 % 0-1 [facility] Bilirubin [Mass/Vol] 0.60 mg/dL 0.20-1.00 [facility] Comment on above: For patients on eltr ombopag therapy, use of Dimension [place] TBIL is not recommended. Chloride [Moles/Vol] 108 mmol/L 98-107 [facility] Eosinophils/100 WBC (Bld) 3.9 % 0-5 [facility] Glucose [Mass/Vol] 100 mg/dL 74-106 [facility] Comment on above: Fasting Glucose resu lt from 100 to 125 mg/dL suggests IMPAIRED HOMEOSTASIS per A.D.A. criteria. Neutrophils (Bld) [#/Vol] 2.3 10*3/uL 2.0-7.7 [facility] Neutrophils/100 WBC (Bld) 65.7 % 47-70 [facility] Potassium [Moles/Vol] 4.1 mmol/L 3.5-5.1 [facility] Protein [Mass/Vol] 7.5 g/dL 6.4-8.2 [facility] Sodium [Moles/Vol] 139 mmol/L 136-145 [facility] WBC (Bld) [#/Vol] 3.6 10*3/uL 4.4-11.0 [facility] Basophils/100 WBC Manual cnt (Unsp spec)Ordered By: Chris Feliz on 01-20-2023 Basophils/100 WBC (Unsp spec) [facility] Bite cells detectionOrdered By: Chris Feliz on 01-20-2023 Bite cells LM Ql (Bld) [facility] Blood acanthocytes detection by light microscopyOrdered By: Chris Feliz on 01-20-2023 Acanthocytes LM Ql (Bld) [facility] Blood mónica cells detection b y light microscopyOrdered By: Chris Feliz on 01-20-2023 [place] cells LM Ql (Bld) [facility] Blood erythrocytes count (nu mber/volume)Ordered By: Chris Feliz on 01-20-2023 RBC (Bld) [#/Vol] 4.24 10*6/uL 4.6-6.2 [facility] Blood hemoglobin measurement (mass/volume)Ordered By: Chris Feliz on 01-20-2023 Hemoglobin (Bld) [Mass/Vol] 13.1 g/dL 13.0-16.5 [facility] Blood leukocytes count corre cted for nucleated erythrocytes (number/volume)Ordered By: Chris Feliz on 01-20-2023 WBC corrected for nucl RBC (Bld) [#/Vol] STATE ASSESSED PROPERTIES DIRECTOR [facility] Blood lymphocytes/100 leukoc ytesOrdered By: Chris Feliz on 01-20-2023 Lymphocytes/100 WBC (Bld) 17.2 % 19-41 [facility] Blood manual differential co mment interpretation (narrative result)Ordered By: Chris Feliz on 01-20-2023 Manual differential comment Rajesh (Bld) [Interp] STATE ASSESSED PROPERTIES DIRECTOR [facility] Blood monocytes/100 leukocyt esOrdered By: Chris Feliz on 01-20-2023 Monocytes/100 WBC (Bld) 11.8 % 0-10 [facility] Blood platelet mean volumeOr dered By: Chris Feliz on 01-20-2023 Platelet mean volume (Bld) [Entitic vol] 11.5 fL 6.2-12.0 [facility] Blood platelet morphology de termination (nominal result)Ordered By: Chris Feliz on 01-20-2023 Platelet morphology finding Nom (Bld) STATE ASSESSED PROPERTIES DIRECTOR [facility] Blood poikilocytosis detecti on by light microscopyOrdered By: Chris Feliz on 01-20-2023 Poikilocytosis LM Ql (Bld) [facility] Blood polychromasia detectio n by light microscopyOrdered By: Chris Feliz on 01-20-2023 Polychromasia LM Ql (Bld) [facility] Blood schistocytes detection by light microscopyOrdered By: Chris Feliz on 01-20-2023 Schistocytes LM Ql (Bld) [facility] Blood spherocytes detection by light microscopyOrdered By: Chris Feliz on 01-20-2023 Spherocytes LM Ql (Bld) STATE ASSESSED PROPERTIES DIRECTOR [facility] Blood vacuolated neutrophils detection by light microscopyOrdered By: Chris Feliz on 01-20-2023 Neutrophils.vacuolated LM Ql (Bld) [facility] Determination of erythrocyte mean corpuscular volume (MCV)Ordered By: Chris Feliz on 01-20-2023 MCV (RBC) [Entitic vol] 96.7 fL 80-94 [facility] Dohle bodies detectionOrdere d By: Chris Feliz on 01-20-2023 Dohle body LM Ql (Bld) STATE ASSESSED PROPERTIES DIRECTOR [facility] Erythrocyte basophilic stipp ling detectionOrdered By: Chris Feliz on 01-20-2023 Basophilic stippling LM Ql (Bld) STATE ASSESSED PROPERTIES DIRECTOR [facility] Erythrocyte sickle cell dete ctionOrdered By: Chris Feliz on 01-20-2023 Sickle cells LM Ql (Bld) STATE ASSESSED PROPERTIES DIRECTOR [facility] Hematocrit Auto (Bld) [Volum e fraction]Ordered By: Chris Feliz on 01-20-2023 Hematocrit (Bld) [Volume fraction] 41.0 % 40-54 [facility] Hypochromia LM Ql (Bld)Order ed By: Chris Feliz on 01-20-2023 Hypochromia Ql (Bld) STATE ASSESSED PROPERTIES DIRECTOR [facility] - Chemistry and C hemistry - challengeOrdered By: Chris Feliz 01-20-2023 ALP [Catalytic activity/Vol] 102 U/L 45-117 [facility] ALT [Catalytic activity/Vol] 29 U/L 16-61 [facility] CO2 [Moles/Vol] 25.0 mmol/L 21.0-32.0 [facility] Globulin (S) [Mass/Vol] 3.8 g/dL 2.2-4.2 [facility] Urea nitrogen/Creatinine [Mass ratio] 15.4 mg/mg 10-20 [facility] - Hematology and Cell countsOrdered By: Chris Feliz 01-20-2023 Cells Counted Total (Unsp spec) [#] STATE ASSESSED PROPERTIES DIRECTOR [facility] Erythrocyte distribution width (RBC) [Entitic vol] 47.8 fL 35.1-43.9 [facility] Erythrocyte distribution width (RBC) [Ratio] 13.4 % 11.6-14.6 [facility] Immature granulocytes/100 WBC (Bld) 0.300 % 0.0-0.9 [facility] Comment on above: IG% - Immature Granu locytes (promyelocytes, myelocytes and metamyelocytes) > 1% indicates that a LEFT SHIFT is Present. MCH (RBC) [Entitic mass] 30.9 pg 27.0-32.0 [facility] Nucleated RBC/100 WBC (Bld) [Ratio] 0 % 0-5 [facility] MCHC Auto (RBC) [Mass/Vol]Or dered By: Chris Feliz on 01-20-2023 MCHC (RBC) [Mass/Vol] 32.0 g/dL 32-36 [facility] No Panel InformationOrdered By: Chris Feliz on 01-20-2023 Atypical Lymphocytes STATE ASSESSED PROPERTIES DIRECTOR [facility] Band Neutrophils % STATE ASSESSED PROPERTIES DIRECTOR [facility] Blast Cells % STATE ASSESSED PROPERTIES DIRECTOR [facility] Estimated GFR (MDRD) Amer 64 mL/min >60 [facility] Comment on above: GFR Calc Estimated GFR (MDRD) Non-Af Amer 53 mL/min >60 [facility] Comment on above: Non- GFR Calc Hat[place]-Kulm Bodies STATE ASSESSED PROPERTIES DIRECTOR [facility] Lymphocytes % (Manual) STATE ASSESSED PROPERTIES DIRECTOR [facility] Macrocytosis STATE ASSESSED PROPERTIES DIRECTOR [facility] Metamyelocytes % [facility] Microcytosis [facility] Monocytes % (Manual) [facility] Myelocytes % [facility] Neutrophils % (Manual) STATE ASSESSED PROPERTIES DIRECTOR [facility] Plasma Cells % (manual) STATE ASSESSED PROPERTIES DIRECTOR [facility] Platelet Estimate STATE ASSESSED PROPERTIES DIRECTOR [facility] Promyelocytes % [facility] Reactive Lymphocytes STATE ASSESSED PROPERTIES DIRECTOR [facility] Tear Drop Cells STATE ASSESSED PROPERTIES DIRECTOR [facility] Thyroid Stimulating Hormone (TSH) 1.93 uIU/mL 0.358-3.74 [facility] Toxic Granulation STATE ASSESSED PROPERTIES DIRECTOR [facility] Vitamin D 25-Hydroxy 35.2 ng/mL [facility] Comment on above: Vitamin D 25(OH) Sta tus Range Deficiency <20 ng/mL (50nmol/L) Insufficiency 20 - 30 ng/mL (50 - 75 nmol/L) Sufficiency 30 - 100 ng/mL (75 - 250 nmol/L) Toxicity >100 ng/mL (>250 nmol/L) Ovalocyte detectionOrdered B y: Chris Feliz on 01-20-2023 Ovalocytes LM Ql (Bld) STATE ASSESSED PROPERTIES DIRECTOR [facility] Platelets bldOrdered By: Chris Feliz on 01-20-2023 Platelets (Bld) [#/Vol] 180 10*3/uL 150-450 [facility] RBC morphologyOrdered By: Nestor Feliz on 01-20-2023 RBC morphology finding Nom (Bld) [facility] Red blood cell stomatocyte d etectionOrdered By: Chris Feliz on 01-20-2023 Stomatocytes LM Ql (Bld) [facility] Review by pathologistOrdered By: Chris Feliz on 01-20-2023 Pathologist review Rajesh (Unsp spec) [Interp] STATE ASSESSED PROPERTIES DIRECTOR [facility] Rouleaux detectionOrdered By : Chris Feliz on 01-20-2023 Rouleaux LM Ql (Bld) STATE ASSESSED PROPERTIES DIRECTOR [facility] Serum or plasma albumin mike urement (mass/volume)Ordered By: Chris Feliz on 01-20-2023 Albumin [Mass/Vol] 3.7 g/dL 3.2-5.0 [facility] Serum or plasma albumin/glob ulin mass ratioOrdered By: Chris Feliz on 01-20-2023 Albumin/Globulin [Mass ratio] 1.0 {ratio} 0.9-2.4 [facility] Serum or plasma calcium mike urement (mass/volume)Ordered By: Chris Feliz on 01-20-2023 Calcium [Mass/Vol] 9.1 mg/dL 8.5-10.1 [facility] Serum or plasma creatinine m easurement (mass/volume)Ordered By: Chris Feliz on 01-20-2023 Creatinine [Mass/Vol] 1.36 mg/dL 0.70-1.30 [facility] Comment on above: The validity of the calculated GFR & GFRAA in patients over 70 years has not been determined. Clinical correlation is essential. Serum or plasma urea nitroge n measurement (mass/volume)Ordered By: Chris Feliz on 01-20-2023 Urea nitrogen [Mass/Vol] 21 mg/dL 7-18 [facility] Smudge cell detectionOrdered By: Chris Feliz on 01-20-2023 Smudge cells LM Ql (Bld) [facility] Target cell detectionOrdered By: Chris Feliz on 01-20-2023 Target cells LM Ql (Bld) [facility] Thin prep Papanicolaou smear with manual screeningOrdered By: Chris Feliz 01-20-2023 Thin prep Papanicolaou smear with manual screening [facility] Thin prep Papanicolaou smear with manual screening 23 U/L 15-37 [facility] Thin prep Papanicolaou smear with manual screening 6 5-15 [facility] Whole blood hypersegmented n eutrophils detection by light microscopyOrdered By: Chris Feliz on 01-20-2023 Neutrophils.hypersegmente d LM Ql (Bld) STATE ASSESSED PROPERTIES DIRECTOR [facility] Absolute lymphocyte countOrd ered By: Dr. Feliz on 07-29-2022 Lymphocytes Auto (Unsp spec) [#/Vol] 0.81 10*3/uL 0.83-4.51 [facility] Basophil percentageOrdered B y: Dr. Feliz on 07-29-2022 Basophils/100 WBC (Bld) 1.0 % 0-1 [facility] Bilirubin [Mass/Vol] 0.80 mg/dL 0.20-1.00 [facility] Comment on above: For patients on eltr ombopag therapy, use of Dimension [place] TBIL is not recommended. Chloride [Moles/Vol] 110 mmol/L 98-107 [facility] Eosinophils/100 WBC (Bld) 3.3 % 0-5 [facility] Glucose [Mass/Vol] 122 mg/dL 74-106 [facility] Comment on above: Fasting Glucose resu lt from 100 to 125 mg/dL suggests IMPAIRED HOMEOSTASIS per A.D.A. criteria. Neutrophils (Bld) [#/Vol] 2.4 10*3/uL 2.0-7.7 [facility] Neutrophils/100 WBC (Bld) 60.8 % 47-70 [facility] Potassium [Moles/Vol] 3.9 mmol/L 3.5-5.1 [facility] Protein [Mass/Vol] 6.8 g/dL 6.4-8.2 [facility] Sodium [Moles/Vol] 140 mmol/L 136-145 [facility] WBC (Bld) [#/Vol] 4.0 10*3/uL 4.4-11.0 [facility] Blood erythrocytes count (nu mber/volume)Ordered By: Dr. Feliz on 07-29-2022 RBC (Bld) [#/Vol] 4.17 10*6/uL 4.6-6.2 [facility] Blood hemoglobin measurement (mass/volume)Ordered By: Dr. Feliz on 07-29-2022 Hemoglobin (Bld) [Mass/Vol] 13.5 g/dL 13.0-16.5 [facility] Blood lymphocytes/100 leukoc ytesOrdered By: Dr. Feliz on 07-29-2022 Lymphocytes/100 WBC (Bld) 20.3 % 19-41 [facility] Blood monocytes/100 leukocyt esOrdered By: Dr. Feliz on 07-29-2022 Monocytes/100 WBC (Bld) 14.3 % 0-10 [facility] Blood platelet mean volumeOr dered By: Dr. Feliz on 07-29-2022 Platelet mean volume (Bld) [Entitic vol] 11.5 fL 6.2-12.0 [facility] Determination of erythrocyte mean corpuscular volume (MCV)Ordered By: Dr. Feliz on 07-29-2022 MCV (RBC) [Entitic vol] 98.6 fL 80-94 [facility] Hematocrit Auto (Bld) [Volum e fraction]Ordered By: Dr. Feliz on 07-29-2022 Hematocrit (Bld) [Volume fraction] 41.1 % 40-54 [facility] - Chemistry and C hemistry - challengeOrdered By: Dr. Feliz on 07-29-2022 ALP [Catalytic activity/Vol] 87 U/L 45-117 [facility] ALT [Catalytic activity/Vol] 28 U/L 16-61 [facility] CO2 [Moles/Vol] 26.0 mmol/L 21.0-32.0 [facility] Globulin (S) [Mass/Vol] 3.0 g/dL 2.2-4.2 [facility] Urea nitrogen/Creatinine [Mass ratio] 12.2 mg/mg 10-20 [facility] - Hematology and Cell countsOrdered By: Dr. Feliz on 07-29-2022 Erythrocyte distribution width (RBC) [Entitic vol] 46.6 fL 35.1-43.9 [facility] Erythrocyte distribution width (RBC) [Ratio] 13.1 % 11.6-14.6 [facility] Immature granulocytes/100 WBC (Bld) 0.300 % 0.0-0.9 [facility] Comment on above: IG% - Immature Granu locytes (promyelocytes, myelocytes and metamyelocytes) > 1% indicates that a LEFT SHIFT is Present. MCH (RBC) [Entitic mass] 32.4 pg 27.0-32.0 [facility] Nucleated RBC/100 WBC (Bld) [Ratio] 0 % 0-5 [facility] ([facility]) [Mass/Vol]Or dered By: Dr. Feliz on 07-29-2022 MCHC (RBC) [Mass/Vol] 32.8 g/dL 32-36 [facility] No Panel InformationOrdered By: Dr. Feliz on 07-29-2022 Estimated GFR (MDRD) Amer 67 mL/min >60 [facility] Comment on above: GFR Calc Estimated GFR (MDRD) Non-Af Amer 55 mL/min >60 [facility] Comment on above: Non- GFR Calc Thyroid Stimulating Hormone (TSH) 2.28 uIU/mL 0.358-3.74 [facility] Platelets bldOrdered By: Dr. Feliz on 07-29-2022 Platelets (Bld) [#/Vol] 136 10*3/uL 150-450 [facility] Serum or plasma albumin mike urement (mass/volume)Ordered By: Dr. Feliz on 07-29-2022 Albumin [Mass/Vol] 3.8 g/dL 3.2-5.0 [facility] Serum or plasma albumin/glob ulin mass ratioOrdered By: Dr. Feliz on 07-29-2022 Albumin/Globulin [Mass ratio] 1.3 {ratio} 0.9-2.4 [facility] Serum or plasma calcium mike urement (mass/volume)Ordered By: Dr. Feliz on 07-29-2022 Calcium [Mass/Vol] 9.0 mg/dL 8.5-10.1 [facility] Serum or plasma creatinine m easurement (mass/volume)Ordered By: Dr. Feliz on 07-29-2022 Creatinine [Mass/Vol] 1.31 mg/dL 0.70-1.30 [facility] Comment on above: The validity of the calculated GFR & GFRAA in patients over 70 years has not been determined. Clinical correlation is essential. Serum or plasma urea nitroge n measurement (mass/volume)Ordered By: Dr. Feliz on 07-29-2022 Urea nitrogen [Mass/Vol] 16 mg/dL 7-18 [facility] Thin prep Papanicolaou smear with manual screeningOrdered By: Dr. Feliz on 07-29-2022 Thin prep Papanicolaou smear with manual screening 21 U/L 15-37 [facility] Thin prep Papanicolaou smear with manual screening 4 5-15 [facility] Basophil percentageOrdered B y: Dr. Jerry on 07-22-2022 Basophil percentage 2.6 mg/dL 2.5-4.9 [facility] Chloride [Moles/Vol] 107 mmol/L 98-107 [facility] Glucose [Mass/Vol] 113 mg/dL 74-106 [facility] Comment on above: Fasting Glucose resu lt from 100 to 125 mg/dL suggests IMPAIRED HOMEOSTASIS per A.D.A. criteria. Potassium [Moles/Vol] 3.8 mmol/L 3.5-5.1 [facility] Sodium [Moles/Vol] 139 mmol/L 136-145 [facility] Laboratory - Chemistry and C hemistry - challengeOrdered By: Dr. Jerry on 07-22-2022 CO2 [Moles/Vol] 24.0 mmol/L 21.0-32.0 [facility] Urea nitrogen/Creatinine [Mass ratio] 14.1 mg/mg 10-20 [facility] No Panel InformationOrdered By: Dr. Jerry on 07-22-2022 Estimated GFR (MDRD) Amer 61 mL/min >60 [facility] Comment on above: GFR Calc Estimated GFR (MDRD) Non-Af Amer 50 mL/min >60 [facility] Comment on above: Non- GFR Calc Serum or plasma albumin mike urement (mass/volume)Ordered By: Dr. Jerry on 07-22-2022 Albumin [Mass/Vol] 3.9 g/dL 3.2-5.0 [facility] Serum or plasma calcium mike urement (mass/volume)Ordered By: Dr. Jerry on 07-22-2022 Calcium [Mass/Vol] 9.3 mg/dL 8.5-10.1 [facility] Serum or plasma creatinine m easurement (mass/volume)Ordered By: Dr. Jerry on 07-22-2022 Creatinine [Mass/Vol] 1.42 mg/dL 0.70-1.30 [facility] Comment on above: The validity of the calculated GFR & GFRAA in patients over 70 years has not been determined. Clinical correlation is essential. Serum or plasma urea nitroge n measurement (mass/volume)Ordered By: Dr. Jerry on 07-22-2022 Urea nitrogen [Mass/Vol] 20 mg/dL 7-18 [facility] Urine creatinine measurement (mass/volume)Ordered By: Dr. Jerry on 07-22-2022 Creatinine (U) [Mass/Vol] 119.00 mg/dL NO RANGE EST. [facility] Urine protein measurement (m ass/volume)Ordered By: Dr. Jerry on 07-22-2022 Protein (U) [Mass/Vol] 21.6 mg/dL 0.0-11.8 [facility] Urine protein/creatinine mas s ratioOrdered By: Dr. Jerry on 07-22-2022 Protein/Creatinine (U) [Mass ratio] 182 mg/g CRE 0-200 [facility] Absolute lymphocyte counton 01-21-2022 Lymphocytes Auto (Unsp spec) [#/Vol] 0.96 10*3/uL 0.83-4.51 [facility] Work Phone: Basophil percentageon 2021 Basophils/100 WBC (Bld) 0.7 % 0-1 [facility] Work Phone: Eosinophils/100 WBC (Bld) 2.8 % 0-5 [facility] Work Phone: Neutrophils (Bld) [#/Vol] 2.6 10*3/uL 2.0-7.7 [facility] Work Phone: Neutrophils/100 WBC (Bld) 60.6 % 47-70 [facility] Work Phone: WBC (Bld) [#/Vol] 4.2 10*3/uL 4.4-11.0 [facility] Work Phone: Blood erythrocytes count (nu mber/volume)on 01-21-2022 RBC (Bld) [#/Vol] 4.33 10*6/uL 4.6-6.2 [facility] Work Phone: Blood hemoglobin measurement (mass/volume)on 01-21-2022 Hemoglobin (Bld) [Mass/Vol] 14.3 g/dL 13.0-16.5 [facility] Work Phone: Blood lymphocytes/100 leukoc yteson 01-21-2022 Lymphocytes/100 WBC (Bld) 22.7 % 19-41 [facility] Work Phone: Blood monocytes/100 leukocyt eson 01-21-2022 Monocytes/100 WBC (Bld) 13.0 % 0-10 [facility] Work Phone: Blood platelet mean volumeon 01-21-2022 Platelet mean volume (Bld) [Entitic vol] 12.6 fL 6.2-12.0 [facility] Work Phone: Determination of erythrocyte mean corpuscular volume (MCV)on 01-21-2022 MCV (RBC) [Entitic vol] 96.1 fL 80-94 [facility] Work Phone: Hematocrit Auto (Bld) [Volum e fraction]on 01-21-2022 Hematocrit (Bld) [Volume fraction] 41.6 % 40-54 [facility] Work Phone: Laboratory - Hematology and Cell countson 01-21-2022 Erythrocyte distribution width (RBC) [Entitic vol] 45.2 fL 35.1-43.9 [facility] Work Phone: Erythrocyte distribution width (RBC) [Ratio] 12.7 % 11.6-14.6 [facility] Work Phone: Immature granulocytes/100 WBC (Bld) 0.200 % 0.0-0.9 [facility] Work Phone: Comment on above: IG% - Immature Granu locytes (promyelocytes, myelocytes and metamyelocytes) > 1% indicates that a LEFT SHIFT is Present. MCH (RBC) [Entitic mass] 33.0 pg 27.0-32.0 [facility] Work Phone: Nucleated RBC/100 WBC (Bld) [Ratio] 0 % 0-5 [facility] Work Phone: MCHC Auto (RBC) [Mass/Vol]on 01-21-2022 MCHC (RBC) [Mass/Vol] 34.4 g/dL 32-36 [facility] Work Phone: Platelets bldon 01-21-2022 Platelets (Bld) [#/Vol] 142 10*3/uL 150-450 [facility] Work Phone: Basophil percentageon 2021 Basophil percentage 2.2 mg/dL 2.5-4.9 [facility] Work Phone: Chloride [Moles/Vol] 106 mmol/L 98-107 [facility] Work Phone: Glucose [Mass/Vol] 105 mg/dL 74-106 [facility] Work Phone: Comment on above: Fasting Glucose resu lt from 100 to 125 mg/dL suggests IMPAIRED HOMEOSTASIS per A.D.A. criteria. Potassium [Moles/Vol] 3.9 mmol/L 3.5-5.1 [facility] Work Phone: Sodium [Moles/Vol] 139 mmol/L 136-145 [facility] Work Phone: Laboratory - Chemistry and C hemistry - challengeon 01-15-2022 CO2 [Moles/Vol] 26.0 mmol/L 21.0-32.0 [facility] Work Phone: Urea nitrogen/Creatinine [Mass ratio] 11.7 mg/mg 10-20 [facility] Work Phone: No Panel Informationon 01-15 Estimated GFR (MDRD) Amer 56 mL/min >60 [facility] Work Phone: Comment on above: GFR Calc Estimated GFR (MDRD) Non-Af Amer 46 mL/min >60 [facility] Work Phone: Comment on above: Non- GFR Calc Serum or plasma albumin mike urement (mass/volume)on 01-15-2022 Albumin [Mass/Vol] 4.2 g/dL 3.2-5.0 [facility] Work Phone: Serum or plasma calcium mike urement (mass/volume)on 01-15-2022 Calcium [Mass/Vol] 9.4 mg/dL 8.5-10.1 [facility] Work Phone: Serum or plasma creatinine m easurement (mass/volume)on 01-15-2022 Creatinine [Mass/Vol] 1.54 mg/dL 0.70-1.30 [facility] Work Phone: Comment on above: The validity of the calculated GFR & GFRAA in patients over 70 years has not been determined. Clinical correlation is essential. Serum or plasma urea nitroge n measurement (mass/volume)on 01-15-2022 Urea nitrogen [Mass/Vol] 18 mg/dL 7-18 [facility] Work Phone: Urine creatinine measurement (mass/volume)on 01-15-2022 Creatinine (U) [Mass/Vol] 129.00 mg/dL NO RANGE EST. [facility] Work Phone: Urine protein measurement (m ass/volume)on 01-15-2022 Protein (U) [Mass/Vol] 30.3 mg/dL 0.0-11.8 [facility] Work Phone: Urine protein/creatinine mas s ratioon 01-15-2022 Protein/Creatinine (U) [Mass ratio] 235 mg/g CRE 0-200 [facility] Work Phone: Final Surgical Pathology Rep [facility] 08-20-2020 Final Surgical Pathology Report . Pathology Reports Accession: Collected Date/Time: Received Date/Time: Pathologist: [id number] 08/19/2020 09:53 EDT 08/19/2020 14:27 EDT SANJEEV PARHAM MD Final Surgical Pathology Report DIAGNOSIS: A) COLON, HEPATIC FLEXURE, POLYPECTOMY -- TUBULAR ADENOMA. B) DESCENDING COLON, POLYPECTOMY -- TUBULAR ADENOMA. C) NO TISSUE PRESENT IN THE SPECIMEN CONTAINER. COMMENT: [facility] - D# [id number] CLINICAL INFORMATION: Procedure: COLONOSCOPY WITH ARGON PLASMA COAGULATION AND BIOPSIES Preoperative diagnosis: HISTORY OF POLYPS Postoperative diagnosis: SAME SPECIMEN: A HEPATIC FLEXURE POLYP - R/O ADENOMA B DESCENDING COLON POLYP - R/O ADENOMA C POLYP STOMA - R/O ADENOMA GROSS DESCRIPTION: A. Received in formalin, labeled with the patients name, Case #[id number], and hepatic flexure polyp 6 alberto soft tissue fragments ranging from 0.1 to 0.3 cm. TS -1. B. Received in formalin labeled descending colon polyp are multiple alberto soft tissue fragments ranging from less than 0.1 to 0.3 cm. TS -1. C. Received in formalin labeled stoma polyp is a formalin filled container with no identified soft tissue in the container or in the lid. Gross exam only. Dictated by FERNANDO GUPTA MICROSCOPIC DESCRIPTION: A,B&C) Slides reviewed. Electronically Signed by Pathology Report verified by [facility] Electronically signed by SANJEEV PARHAM Sign out Date: 08/20/2020 16:43 Performing Lab: [facility], [address] [place] [address] ([place]) Comment on above: Performed By: #### S PFR #### [address] [address] Encounters Encounter Date Encounter Type Care Provider Facility Start: 08-01-2024 [facility] Start: 07-18-2024 Encounter for genera l adult medical examination without abnormal findings [facility] Start: 07-13-2024 End: 07-13-[address] Chris Feliz MD Work Phone: [facility] Work Phone: Start: 07-13-2024 End: 07-13-[address] Yamilka Jerry DO -Laboratory Work Phone: Start: 07-13-2024 End: 07-13-2024 ambulatory Chris Feliz Facility:[facility] Start: 05-15-2024 End: 05-15-[address] Chris Feliz MD Work Phone: [facility] Work Phone: Start: 05-15-2024 End: 05-15-[address] Yamilka Rosalino DO -Laboratory Work Phone: Start: 05-15-2024 End: 05-15-2024 ambulatory [facility] Facility:[facility] Start: 01-20-2024 End: 01-20-[address] Chris Feliz MD -Laboratory, Phy Office 3rd Flr Start: 01-20-2024 End: 01-20-2024 ambulatory [facility] Facility:[facility] Start: 08-10-2023 End: 08-10-2023 ambulatory [facility] Facility:[facility] Start: 08-04-2023 End: 08-04-2023 Emergency department patient visit [facility] Facility:[facility] Start: 05-05-2023 End: 05-05-2023 ambulatory [facility] Work Phone: Start: 05-05-2023 End: 05-05-2023 Patient encounter procedure [facility]-Laboratory Work Phone: Start: 01-20-2023 End: 01-20-2023 ambulatory [facility] Work Phone: Start: 01-20-2023 End: 01-20-2023 Patient encounter procedure [facility]-Laboratory, Phy Office 3rd Flr Start: 07-29-2022 End: 07-29-2022 ambulatory [facility] Work Phone: Start: 07-29-2022 End: 07-29-2022 Patient encounter procedure [facility]-Laboratory Start: 07-22-2022 End: 07-22-2022 Patient encounter procedure [facility]-Laboratory Start: 01-21-2022 Patient encounter procedure [facility]-Laboratory, Phy Office 3rd Flr Start: 01-15-2022 End: 01-15-2022 ambulatory [facility] Work Phone: Start: 01-15-2022 End: 01-15-2022 Patient encounter procedure [facility]-Laboratory, Phy Office 3rd Flr Procedures Date Procedure Procedure Detail Performing Clinician Start: 05-15-2024 Serum inorganic phos phate measurement Dr. Chris Feliz MD Work Phone: Plan of Treatment Date Care Activity Detail Author Start: 01-21-2022 Thyroid stimulating hormone measurement [facility] Work Phone: Start: 01-21-2022 Vitamin D, 25-hydroxy measurement [facility] Work Phone: Start: 01-21-2022 [facility] Work Phone: Alanine aminotransfe rase [Enzymatic activity/volume] in Serum or Plasma [facility] Work Phone: Albumin [Mass/volume ] in Serum or Plasma [facility] Work Phone: Alkaline phosphatase [Enzymatic activity/volume] in Serum or Plasma [facility] Work Phone: Anion gap measurement [facility] Work Phone: Aspartate aminotrans ferase [Enzymatic activity/volume] in Serum or Plasma [facility] Work Phone: Bilirubin, total measurement [facility] Work Phone: BUN/Creatinine ratio [facility] Work Phone: Calcium [Mass/volume ] in Serum or Plasma [facility] Work Phone: Carbon dioxide, tota l [Moles/volume] in Serum or Plasma [facility] Work Phone: Chloride [Moles/volu me] in Serum or Plasma [facility] Work Phone: Creatinine [Moles/vo lume] in Serum or Plasma [facility] Work Phone: Glucose [Mass/volume ] in Serum or Plasma [facility] Work Phone: Measurement of renal function [facility] Work Phone: Potassium [Moles/vol ume] in Serum or Plasma [facility] Work Phone: Sodium [Moles/volume ] in Serum or Plasma [facility] Work Phone: Thyroid stimulating hormone measurement [facility] Work Phone: Total protein measurement [facility] Work Phone: Urea nitrogen [Mass/ volume] in Serum or Plasma [facility] Work Phone: Vitamin D, 25-hydroxy measurement [facility] Work Phone: Payers Date Payer Category Payer Private Health Insurance [facility] [id number] 2023 Self-pay [id number] 2006 Unknown ANTHEM [id number] 2003 Medicare MEDICARE PART A B [id number] Unknown [id number] Unknown [id number] Unknown [id number] Unknown [id number] Unknown [id number] Unknown [id number] Social History Date Type Detail Facility Start: 07-09-2020 End: 07-09-2020 Tobacco smoking status NHIS Unknown if ever smoked [facility] Start: 07-09-2020 Occasional [facility] Start: 10-01-2018 None [facility] Start: 10-01-2018 Alone [facility] Start: 07-09-2020 Non-smoker [facility] Start: 1940 Sex Assigned At Male [facility] Start: 08-04-2023 Tobacco smoking stat us NHIS Ex-smoker (finding) [facility] Start: 05-18-2024 Sex Male (finding) [facility] Evaluation note Note Date & Type Note Facility Evaluation note No assessment information availa ble [facility] Work Phone: Reason for referral (narrative) Note Date & Type Note Facility Reason for referral (narrative) No reason for referral information available [facility] Work Phone: Summary Purpose Family History No Family History Records FoundNo Family History Records Found Advance Directives No Advanced Directives Records Found Advance Directive Response Recorded Date/ Time Living Will No July 09, 2020 8 :54pm Power of Storage Engineer No July 09, 2020 8:54pm Advance Directive Response Recorded Date/ Time Living Will No July 09, 2020 9 :54pm Power of Storage Engineer No July 09, 2020 9:54pm Chief Complaint and Reason for Visit Chief Complaint Essential (primary) hypertension Chief Complaint DUE AROUND DATE LIST ED PER ORDER Chief Complaint Admit Date NEEDS ORDERS July 13, 2024 3:06p m Additional Source Comments (unrecognized sect ion and content) No Status Records FoundNo Status Records Found INFORMATION SOURCE (unrecogn ized section and content) DATE CREATED AUTHOR 08/30/2020 [facility] ([place]) DATE CREATED AUTHOR AUTHOR'S ORGANIZ ATION 08/02/2024 [facility] Goals (unrecognized section and content) Goals may be documented in a n alternate sectionGoals may be documented in an alternate sectionGoals may be documented in an alternate sectionGoals may be documented in an alternate sectionGoals may be documented in an alternate sectionGoals may be documented in an alternate section Care Teams (unrecognized sec tion and content) Team Status: Active Member Role Status Dates Dr. Chris Feliz MD Family Provider Active Dr. Chris Feliz MD Primary Care Provider Active Team Status: Inactive Member Role Status Dates Dr. Chris Feliz MD Primary Care Provider Active Dr. Yamilka Jerry DO Attending Provider, Referring Roselyn solitario Active Team Status: Inactive Member Role Status Dates Dr. Chris Feliz MD Primary Care Provi margo, Attending Provider, Referring Provider Active Team Status: Inactive Member Role Status Dates Dr. Chris Feliz MD Primary Care Provider, Attending Provider Active Team Status: Active Member Role Status Dates Dr. Chris Feliz MD Primary Care Provider Active Team Status: Inactive Member Role Status Dates Dr. Chris Feliz MD Primary Care Provider Active Start: January 20, 2024 End: January 20, 2024 Dr. Chris Feliz MD Attending Provider Active Start: January 20, 2024 End: January 20, 2024 Team Status: Inactive Member Role Status Dates Dr. Chris Feliz MD Primary Care Provider Active Start: May 15, 2024 End: May 15, 2024 Dr. Yamilka Jerry DO Attending Provider Active Start: May 15, 2024 End: May 15, 2024 Dr. Yamilka Jerry DO Referring Provider Active Start: May 15, 2024 End: May 15, 2024 Team Status: Inactive Member Role Status Dates Dr. Chris Feliz MD Primary Care Provider Active Start: July 13, 2024 End: July 13, 2024 Dr. Yamilka Jerry DO Attending Provider Active Start: July 13, 2024 End: July 13, 2024 Dr. Yamilka Jerry DO Referring Provider Active Start: July 13, 2024 End: July 13, 2024 FOR RECORDS PERTAINING TO PATIENTS WHO ARE OR HAVE BEEN ENROLLED IN A CHEMICAL DEPENDENCY/SUBSTANCEABUSE PROGRAM, SOME INFORMATION MAY BE OMITTED. This clinical summary was aggregated from multiple sources. Caution should be exercised in using it in the provision of clinical care. This summary normalizes information from multiple sources, and as a consequence, information in this document may materially change the coding, format and clinical context of patient data. In addition, data may be omitted in some cases. CLINICAL DECISIONS SHOULD BE BASED ON THE PRIMARY CLINICAL RECORDS. [facility] [employer] provides no warranty or guarantee of the accuracy or completeness of information in this document.
== END | disposition home or self-care (01) ==
LOC: LAB 10:52
PROVIDERS: PCP Family Medicine Geriatric Medicine; Referring Provider Family Medicine Geriatric Medicine; Visit Provider Family Medicine Geriatric Medicine
DX: E11.22 Type 2 diabetes mellitus with diabetic chronic kidney disease (principal); N18.9 Chronic kidney disease, unspecified
CPT/HCPCS: 82043; 82570

== ENCOUNTER 2024-10-30 09:20 | Day surgery (SDC) | payer MEDICARE, SELFPAY ==
--- NOTE | 2024-10-25 13:22 | PAT.ANESEVAL ---
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 When Was Last Pacemaker Check QUESTION #4 FULL TEXT: You/Your Family Experience fever (hyperthermia) with Anesthesia Last Oral Intake Last Oral intake: Last Oral Intake NPO since Meds taken in AM with sips of water? Meds patient instructed to take am of surgery PONV PONV - flight controls engineer: PONV - flight controls engineer Female No 10/25/24 11:07 HX of Motion Sickness No 10/25/24 11:07 HX of N/V After Surgery No 10/25/24 11:07 Non-Smoker Yes 10/25/24 11:07 Duration of Surgery greater No 10/25/24 11:07 than 60 minutes Number of Risk Factors 1 10/25/24 11:07 PONV Score Low Risk 10/25/24 11:07 Height & Weight Height & Weight: Anesthesia: Height & Weight Height 5 ft 5 in 08/04/23 20:16 Respiratory Assessment Respiratory Assessment - flight controls engineer: Respiratory Tract Infection Hx - flight controls engineer Hx Respiratory Tract Infection No 10/25/24 11:07 STOP Sleep Apnea STOP Sleep Apnea - flight controls engineer: STOP Sleep Apnea - flight controls engineer Hx Hypertension Yes: CONTROLLED ON MED 10/25/24 11:07 Hx Sleep Apnea No 10/25/24 11:07 CPAP BIPAP Do you snore loudly (louder No 10/25/24 11:07 than talking or can be heard Do you often feel tired/ No 10/25/24 11:07 fatigued/ sleepy during daytime? Has anyone observed you stop No 10/25/24 11:07 breathing during sleep? STOP Results Negative 10/25/24 11:07 QUESTION #5 FULL TEXT : Do you snore loudly (louder than talking or can be heard through closed doors)? 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 Specify any problems Hx of Preganancy in last 3 N/A 10/25/24 11:07 Months Nurse Filling Out Transfusion VCHRISTIN 10/25/24 11:07 & Questions: Date: 10/25/24 10/25/24 11:07 Time: 11:08 10/25/24 11:07 Patient unable to answer at this time (ie. confused, unrespo /Reproduction History /Reproductive History - flight controls engineer: /Reproductive Hx- flight controls engineer Hx Now Gestational Age (in weeks): EDC: Hx Hx Para Hx Section SAB PFSH Medical History (Updated 10/25/24 @ 11:07 by Shannan Prather) Wears hearing aid Wears dentures Wears glasses Cancer Alcohol use History of renal disease Smoker Shortness of breath on exertion History of stress test History of echocardiogram Chronic kidney disease, stage 3 Diabetes mellitus, type II Hypertension High cholesterol Macular degeneration Cartagena esophagus History of colorectal cancer Home Medications ?Medication ?Instructions ?Recorded ?Last Taken ?Type esomeprazole magnesium 20 mg 40 mg PO DAILY 10/01/18 Unknown History capsule,delayed release rosuvastatin 40 mg tablet 40 mg PO DAILY 10/01/18 Unknown History vit A 300 mcg-C 200 mg-E 27 1 ea PO DAILY 10/01/18 Unknown History mg-lutein 2 mg and minerals tablet valsartan 320 0.5 tab PO QDAY 09/20/24 Unknown History mg-hydrochlorothiazide 12.5 mg tablet Allergy/AdvReac Type Severity Reaction Status Date / Time Tetanus Vaccines and Toxoid Allergy Angioedema Verified 08/04/23 20:16 Family History Mother Diabetes Myocardial infarction CAD (coronary artery disease) Father Hypertension CVA (cerebral vascular accident) Surgical History (Updated 10/25/24 @ 11:07 by Shannan Prather) Hx of colonoscopy Hx of tonsillectomy S/P cholecystectomy History of right hemicolectomy History of colostomy Social History (Updated 09/20/24 @ 07:51 by Lora Solorzano) Smoking Status: Former smoker alcohol intake: never substance use type: does not use Audit: Pertinent Findings Pertinent Findings Echo (EF%) pertinent findings: Echo 07/24/2020. Normal LV size. Left ventricular systolic function is normal. The estimated EF is 55%. Stage I diastolic dysfunction. Pulmonary artery systolic pressure is 35 mmHg Recommendation Anesthesia Recommendation Anesthesia recommendation: OPTIMIZED for anesthesia
[2024-10-30] VITALS (8 sets, daily range): BP systolic 136–171; BP diastolic 84–89; PULSE 64–70; RESP 16–18; TEMP 36.4–36.7; O2SAT 97–99; BMI 30.2
--- NOTE | 2024-10-30 09:43 | HP.PCM_ITS ---
HPI - General General Date of Admission: 10/30/24 Date of Service: 10/30/24 Chief Complaint: Colon cancer surveillance HPI Narrative HOLLAND DIAZ, is a 84 M who presents colon cancer surveillance *[facility] established 09.20.24 pt presents with referral from Dr Feliz for a colonoscopy. Pt reports he had a right hemicolectomy in 1991 and had a colostomy revision in the mid . Pt denies current GI symptoms of concern, but reports he has a history of polyps. [facility] [place] Medical History Wears hearing aid Wears dentures Wears glasses Cancer Alcohol use History of renal disease Smoker Shortness of breath on exertion History of stress test History of echocardiogram Chronic kidney disease, stage 3 Diabetes mellitus, type II Hypertension High cholesterol Macular degeneration Cartagena esophagus History of colorectal cancer Home Medications ?Medication ?Instructions ?Recorded ?Last Taken ?Type esomeprazole magnesium 20 mg 40 mg PO DAILY 10/01/18 U nknown History capsule,delayed release rosuvastatin 40 mg tablet 40 mg PO DAILY 10/01/18 Unkn own History vit A 300 mcg-C 200 mg-E 27 1 ea PO DAILY 10/01/18 Unk nown History mg-lutein 2 mg and minerals tablet valsartan 320 0.5 tab PO QDAY 09/20/24 Unk nown History mg-hydrochlorothiazide 12.5 mg tablet Allergy/AdvReac Type Severity Reaction Status Date / Time Tetanus Vaccines and Toxoid Allergy Angioedema Verified 10/30/24 09:33 Family History Mother Diabetes Myocardial infarction CAD (coronary artery disease) Father Hypertension CVA (cerebral vascular accident) Surgical History Hx of colonoscopy Hx of tonsillectomy S/P cholecystectomy History of right hemicolectomy History of colostomy Social History Smoking Status: Former smoker alcohol intake: never substance use type: does not use ROS Constitutional Constitutional: Denies fatigue, fever(s), poor appetite, weight gain or weight loss Gastrointestinal Gastrointestinal: Denies belching, bloating, change in bowel habits, change in stool character, chewing difficulty, coffee ground emesis, constipation, cramping, diarrhea, dyspepsia, dysphagia, early satiety, excessive flatus, fecal incontinence, heartburn, hematemesis, hematochezia, hemorrhoids, loose stools, melena, nausea, odynophagia, rectal bleeding, tenesmus, vomiting or weight changes Physical Exam Const alert, oriented x3, no apparent distress and healthy appearing General Appearance: cooperative GI normal to inspection, nondistended, normoactive bowel sounds, soft to palpation, non-tender and non-distended Percussion: normal to percussion Rectal Exam: deferred Assessment & Plan Assessment/Plan (1) History of colorectal cancer: (2) History of right hemicolectomy: PLAN: Plan Assessment and Plan Assessment and Plan (1) History of colorectal cancer: Status: Acute (2) History of right hemicolectomy: Status: Acute Plan: Holland is a very pleasant 84-year-old gentleman with past medical history of colorectal cancer involving the sigmoid colon status post segmental resection and primary anastomosis. He comes in today for surveillance colonoscopy. He has a past medical history of hypertension and hypercholesterolemia. He does not take any blood thinners. He has not had any other abdominal symptoms. He patient says he has a history of CKD but does not take any medicines and does not have a history of diabetes. He does take esomeprazole because of history of Cartagena's esophagus. His last surveillance Cartagena's esophagus approximately 5 years ago. He has no history of esophageal dysplasia associated with his Cartagena's esophagus. He did not have any pathology or previous op reports regarding his Cartagena's esophagus. He does take Nexium 40 mg on a daily basis and he does not have any symptoms of reflux disease at this time. He will undergo colonoscopy for surveillance of rectal cancer. He was explained alternatives, benefits, risks including and not withstanding bleeding, infection, perforation and need for emergent surgery and . He will have an ASA of 3.
[2024-10-30] MEDS: Lactated Ringers 1,000 ML 15 ML IV (09:49)
--- NOTE | 2024-10-30 10:09 | PCM.PRE.AN2 ---
ASA Classification* ASA Classification ASA Classification: 2 Assessment & Plan Anesthesia* Anesthesia Assessment Anesthesia Assessment: Discussed sedation and/or anesthesia options, risks, benefits, and alternatives with patient/parents/legal guardian/POA. Questions invited. The patient/parents/legal guardian/POA seems to understand and agrees to proceed with anesthesia plan. Reviewed the physical assessment, medical history, allergy history and patient home medications list prior to surgery/procedure/anesthetic and documented any changes. Performed airway and anesthesia risk assessments. Anesthesia Type Anesthesia Type: MAC Anesthesia Focused Assessment* Temperature: 97.5 F Pulse Rate: 70 Blood Pressure: 171/87 Respiratory Rate: 18 Pulse Ox: 99 Airway Assessment Mouth opens: >3 cm Mallampati Score: II Labs Anesthesia Preop lab: CBC WBC, (4.4-11.0) 3.7 K/mm3 L 08/01/24, 12:45 RBC, (4.6-6.2) 4.21 M/mm3 L 08/01/24, 12:45 Hgb, (13.0-16.5) 13.7 g/dL 08/01/24, 12:45 Hct, (40-54) 40.1 % 08/01/24, 12:45 Plt Count, (150-450) 138 K/mm3 L 08/01/24, 12:45 CHEMISTRY Potassium, (3.3-5.1) 3.8 mmol/L 08/01/24, 12:45 Sodium, (133-145) 142 mmol/L 08/01/24, 12:45 Phosphorus, (2.7-4.5) 2.1 mg/dL L 05/15/24, 15:57 BUN, (4-19) 16 mg/dL 08/01/24, 12:45 Creatinine, (0.70-1.20) 1.46 mg/dL H 08/01/24, 12:45 Glucose, (70-99) 127 mg/dL H 08/01/24, 12:45 TSH, (0.300-4.200) 2.110 uIU/mL 08/01/24, 12:45 COAG Pre-Assessment Diagnosis/Proposed Procedure Planned Operative Procedure(s): Colonoscopy Anesthesia History 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 When Was Last Pacemaker Check QUESTION #4 FULL TEXT: You/Your Family Experience fever (hyperthermia) with Anesthesia Last Oral Intake Last Oral intake: Last Oral Intake NPO since Meds taken in AM with sips of water? Meds patient instructed to take am of surgery PONV PONV - systems support engineer: PONV - systems support engineer Female No 10/25/24 11:07 HX of Motion Sickness No 10/25/24 11:07 HX of N/V After Surgery No 10/25/24 11:07 Non-Smoker Yes 10/25/24 11:07 Duration of Surgery greater No 10/25/24 11:07 than 60 minutes Number of Risk Factors 1 10/25/24 11:07 PONV Score Low Risk 10/25/24 11:07 Height & Weight Height & Weight: Anesthesia: Height & Weight Height 5 ft 6 in 10/30/24 09:34 Weight: 85 kg 10/30/24 09:34 Body Mass Index (BMI) 30.2 10/30/24 09:34 Respiratory Assessment Respiratory Assessment - systems support engineer: Respiratory Tract Infection Hx - systems support engineer Hx Respiratory Tract Infection No 10/25/24 11:07 STOP Sleep Apnea STOP Sleep Apnea - systems support engineer: STOP Sleep Apnea - systems support engineer Hx Hypertension Yes: CONTROLLED ON MED 10/25/24 11:07 Hx Sleep Apnea No 10/25/24 11:07 CPAP BIPAP Do you snore loudly (louder No 10/25/24 11:07 than talking or can be heard Do you often feel tired/ No 10/25/24 11:07 fatigued/ sleepy during daytime? Has anyone observed you stop No 10/25/24 11:07 breathing during sleep? STOP Results Negative 10/25/24 11:07 QUESTION #5 FULL TEXT : Do you snore loudly (louder than talking or can be heard through closed doors)? 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 Specify any problems Hx of Preganancy in last 3 N/A 10/25/24 11:07 Months Nurse Filling Out Transfusion VCHRISTIN 10/25/24 11:07 & Questions: Date: 10/25/24 10/25/24 11:07 Time: 11:08 10/25/24 11:07 Patient unable to answer at this time (ie. confused, unrespo /Reproduction History /Reproductive History - systems support engineer: /Reproductive Hx- systems support engineer Hx Now Gestational Age (in weeks): EDC: Hx Hx Para Hx Section SAB Active Medications Active Medications: Current Medications Generic Name Dose Route Start Last Admin Trade Name Freq PRN Reason Stop Dose Admin Lactated Ringer's 1,000 mls @ 15 mls/hr 10/30/24 10:00 10/30/24 09:49 IV 15 mls/hr .Q48H BULMARO Administration PFSH Medical History Wears hearing aid Wears dentures Wears glasses Cancer Alcohol use History of renal disease Smoker Shortness of breath on exertion History of stress test History of echocardiogram Chronic kidney disease, stage 3 Diabetes mellitus, type II Hypertension High cholesterol Macular degeneration Cartagena esophagus History of colorectal cancer Home Medications ?Medication ?Instructions ?Recorded ?Last Taken ?Type esomeprazole magnesium 20 mg 40 mg PO DAILY 10/01/18 Unknown History capsule,delayed release rosuvastatin 40 mg tablet 40 mg PO DAILY 10/01/18 Unknown History vit A 300 mcg-C 200 mg-E 27 1 ea PO DAILY 10/01/18 Unknown History mg-lutein 2 mg and minerals tablet valsartan 320 0.5 tab PO QDAY 09/20/24 Unknown History mg-hydrochlorothiazide 12.5 mg tablet Allergy/AdvReac Type Severity Reaction Status Date / Time Tetanus Vaccines and Toxoid Allergy Angioedema Verified 10/30/24 09:33 Family History Mother Diabetes Myocardial infarction CAD (coronary artery disease) Father Hypertension CVA (cerebral vascular accident) Surgical History Hx of colonoscopy Hx of tonsillectomy S/P cholecystectomy History of right hemicolectomy History of colostomy Social History Smoking Status: Former smoker alcohol intake: never substance use type: does not use Review of Systems (Anesthesia) ROS Narrative System reviewed and no additional complaints, except as documented.
--- NOTE | 2024-10-30 10:30 | COLBX_PTH ---
PATIENT: HARSH DIAZ LOC: EN U#:[id number] AGE/SX: 84/M ROOM: RE10/30/[address]: Dr. Ap Peace DO : 1940 BED: DIS: 10/30/2024 SPEC #: [id number] RECD: 10/30/24 12:06 STATUS: VIANNEY REQ #: [id number] EBENEZER: 10/30/24 10:[address]: Ap Peace DEPT: SURGICAL PATHOLOGY RECD BY: Artis Mello ENTERED: 10/30/24 13:56 SP TYPE: COLON BX OT DR: Dr. Chris Feliz MD Tissues: A - Ascending colon B - Transverse colon C - SPLENIC FLEXURE D - Sigmoid colon biopsy Procedures: Surgery Specimen Level IV HEADER OPERATION: Colonoscopy through stoma polypectomy PRE-OP DIAGNOSIS: History of colorectal cancer, history of right hemicolectomy TISSUE SUBMITTED: A- Ascending colon polyp biopsy, B- Transverse colon polyp, C- Splenic flexure polyp, D- Sigmoid colon polyp MICROSCOPIC DIAGNOSIS A. Ascending colon, polyp, biopsy: * Tubular adenoma. B. Transverse colon, polyp, biopsy: * Tubular adenoma. C. Splenic flexure, polyp, biopsy: * Tubular adenoma. D. Sigmoid colon, polyp, biopsy: * Tubular adenoma. MICROSCOPIC DESCRIPTION Slides are reviewed. GROSS DESCRIPTION A. Received in fixative is one container labeled with the patient's name and designated Ascending colon polyp biopsy. The specimen consists of three irregular fragments of alberto tissue that measure 0.2 to 0.3 cm. The specimen is totally submitted in one cassette. B. Received in fixative is one container labeled with the patient's name and designated Transverse colon polyp. The specimen consists of multiple irregular fragments of alberto tissue that in aggregate measure 1.1 x 0.5 x 0.2 cm. The specimen is totally submitted in one cassette. C. Received in fixative is one container labeled with the patient's name and designated Splenic flexure polyp. The specimen consists of two irregular fragments of alberto tissue that measure 0.1 and 0.3 cm. The specimen is totally submitted in one cassette. D. Received in fixative is one container labeled with the patient's name and designated Sigmoid colon polyp. The specimen consists of multiple irregular fragments of alberto tissue that in aggregate measure 1.7 x 0.8 x 0.3 cm. The specimen is totally submitted in one cassette. OR 10/30/2024 CPT:58395g9
--- NOTE | 2024-10-30 11:28 | OP.PROVAT_ITS ---
10/30/2024 Chris Feliz MD [address] [place] [address] Re : Colonoscopy procedure for [facility] Dear Dr. Feliz This procedure was performed on Wednesday, October 30, 2024. My impressions and recommendations are as follows: Impressions : - One 20 mm polyp in the sigmoid colon, removed using lift and cut and a hot snare. Resected and retrieved. - One 7 mm polyp in the descending colon. Treated with argon plasma coagulation (APC). - A tattoo was seen in the transverse colon, at the hepatic flexure and in the cecum. A post-polypectomy scar was found at the tattoo site. - Three 1 to 2 mm polyps in the transverse colon, removed with a hot snare. Resected and retrieved. - One 5 mm polyp in the cecum, removed with a cold biopsy forceps. Resected and retrieved. Recommendations : - Repeat colonoscopy in 1 year for surveillance. - Continue present medications. My findings are described in the full procedure note, which is enclosed. If I can be of further assistance, please feel free to contact me at . Sincerely, Ap Peace, 10/30/2024 11:27:45 AM This report has been signed electronically.
--- NOTE | 2024-10-30 11:28 | OP.COLON_ITS ---
Patient Name: Holland Adair Procedure Date: 10/30/2024 10:39 AM Date of : 1940 Age: 84 Procedure: Colonoscopy Indications: High risk colon cancer surveillance: Personal history of colonic polyps, High risk colon cancer surveillance: Personal history of colon cancer Providers: Ap Peace DO Referring MD: Chris Feliz MD Medicines: Monitored Anesthesia Care Patient Profile: This is an 84 year old male. Refer to note in patient chart for documentation of history and physical. Last Colonoscopy: within the past 3 years. Complications: No immediate complications. Procedure: Pre-Anesthesia Assessment: - Prior to the procedure, a History and Physical was performed, and patient medications and allergies were reviewed. The patient is competent. The risks and benefits of the procedure and the sedation options and risks were discussed with the patient. All questions were answered and informed consent was obtained. Patient identification and proposed procedure were verified by the physician in the pre-procedure area. Mental Status Examination: alert and oriented. Airway Examination: normal oropharyngeal airway and neck mobility. Respiratory Examination: clear to auscultation. CV Examination: normal. Prophylactic Antibiotics: The patient does not require prophylactic antibiotics. Prior Anticoagulants: The patient has taken no anticoagulant or antiplatelet agents. ASA Grade Assessment: II - A patient with mild systemic disease. After reviewing the risks and benefits, the patient was deemed in satisfactory condition to undergo the procedure. The anesthesia plan was to use monitored anesthesia care (MAC). Immediately prior to administration of medications, the patient was re-assessed for adequacy to receive sedatives. The heart rate, respiratory rate, oxygen saturations, blood pressure, adequacy of pulmonary ventilation, and response to care were monitored throughout the procedure. The physical status of the patient was re-assessed after the procedure. After I obtained informed consent, the scope was passed under direct vision. Throughout the procedure, the patient's blood pressure, pulse, and oxygen saturations were monitored continuously. The colonoscope was introduced through the anus and advanced to the cecum, identified by appendiceal orifice and ileocecal valve. The colonoscopy was performed without difficulty. The patient tolerated the procedure well. The quality of the bowel preparation was adequate. The ileocecal valve, appendiceal orifice, and rectum were photographed. Scope In: 10:55:59 AM Scope Withdrawal Time 0 hours 22 minutes 37 seconds Scope Out: 11:20:35 AM Total Procedure Duration Time 0 hours 24 minutes 36 seconds Findings: The perianal and digital rectal examinations were normal. A 20 mm polyp was found in the sigmoid colon. The polyp was sessile. The polyp was removed with a lift and cut technique using a hot snare. Resection and retrieval were complete. Verification of patient identification for the specimen was done. Estimated blood loss was minimal. A 7 mm polyp was found in the descending colon. The polyp was sessile. Coagulation for destruction of remaining portion of lesion using argon plasma at 0.3 liters/minute and 20 pettit was successful. Estimated blood loss was minimal. A tattoo was seen in the transverse colon, at the hepatic flexure and in the cecum. A post-polypectomy scar was found at the tattoo site. Three sessile polyps were found in the transverse colon. The polyps were 1 to 2 mm in size. These polyps were removed with a hot snare. Resection and retrieval were complete. Verification of patient identification for the specimen was done. Estimated blood loss was minimal. A 5 mm polyp was found in the cecum. The polyp was sessile. The polyp was removed with a cold biopsy forceps. Resection and retrieval were complete. Verification of patient identification for the specimen was done. Estimated blood loss was minimal. Impression: - One 20 mm polyp in the sigmoid colon, removed using lift and cut and a hot snare. Resected and retrieved. - One 7 mm polyp in the descending colon. Treated with argon plasma coagulation (APC). - A tattoo was seen in the transverse colon, at the hepatic flexure and in the cecum. A post-polypectomy scar was found at the tattoo site. - Three 1 to 2 mm polyps in the transverse colon, removed with a hot snare. Resected and retrieved. - One 5 mm polyp in the cecum, removed with a cold biopsy forceps. Resected and retrieved. Recommendation: - Repeat colonoscopy in 1 year for surveillance. - Continue present medications. Procedure Code(s): --- Professional --- 63264, Colonoscopy, flexible; with ablation of tumor(s), polyp(s), or other lesion(s) (includes pre- and post-dilation and guide wire passage, when performed) 67901, 59, Colonoscopy, flexible; with removal of tumor(s), polyp(s), or other lesion(s) by snare technique 47591, 59, Colonoscopy, flexible; with biopsy, single or multiple CPT copyright 2021 [employer]. All rights reserved. The codes documented in this report are preliminary and upon certified medical records coder review may be revised to meet current compliance requirements. Ap Peace DO 10/30/2024 11:27:45 AM This report has been signed electronically. Number of Addenda: 0 Note Initiated On: 10/30/2024 10:39 AM
--- NOTE | 2024-10-30 11:33 | PCM.POST.ANE ---
Anesthesia: Postop Eval I Current Vital Signs Temperature: 97.6 F Pulse Rate: 67 Blood Pressure: 136/84 Respiratory Rate: 16 Pulse Ox: 98 Oxygen Delivery Method: Room Air Assessment Airway patent: Yes Spontaneous unlabored respirations: Yes Mental status: Awake and Calm nausea: No Vomiting: No Anesthesia Complication: No Fluid Hydration Crystalloid volume administer (ml): 500 Total IV fluid infused: 500 Progress Note Anesthesia document: Postop Eval 1 completed: Yes
--- NOTE | 2024-10-30 13:03 | PCM.POSTANE2 ---
Anesthesia Postop Eval I Sum Postop Eval Completion status Anesthesia document: Postop Eval 1 completed: Yes Anesthesia Postop Eval I Summary Anesthesia Postop Eval I Summary: Anesthesia Postop Eval I: Assessment Summary Airway patent Yes 10/30/24 12:30 [email or web address] Spontaneous unlabored Yes 10/30/24 12:30 [email or web address] respirations Mental status Awake,Calm 10/30/24 12:30 [email or web address] nausea No 10/30/24 12:30 [email or web address] Vomiting No 10/30/24 12:30 [email or web address] Anesthesia Postop Eval I: Fluid Summary Crystalloid volume administer 500 10/30/24 12:30 [email or web address] (ml) Colloids volume administered ( ml) Blood Product volume administered (ml) Total IV fluid infused 500 10/30/24 12:30 [email or web address] Anesthesia Postop Eval I: Summary Notes Anesthesia Complication No 10/30/24 12:30 [email or web address] Anesthesia Complication Comment: Post-operative progress note Anesthesia: Postop Eval II Evaluation Mental status: Awake Pain Level: 0 nausea: No Vomiting: No
== END 2024-10-30 12:15 | disposition home or self-care (01) ==
LOC: EN 09:21 → AC 09:22
PROVIDERS: PCP Family Medicine Geriatric Medicine; Referring Provider Family Medicine Geriatric Medicine; Visit Provider Internal Medicine Gastroenterology
PROC: 0DJD8ZZ Inspection of Lower Intestinal Tract, Via Natural or Artificial Opening Endoscopic (ICD-10-PCS; CPT 45378; principal; 2024-10-30 10:25)
DX: Z12.11 Encounter for screening for malignant neoplasm of colon (principal); E11.22 Type 2 diabetes mellitus with diabetic chronic kidney disease; N18.30 Chronic kidney disease, stage 3 unspecified; K63.5 Polyp of colon; E78.00 Pure hypercholesterolemia, unspecified; Z87.891 Personal history of nicotine dependence; Z79.899 Other long term (current) drug therapy; I12.9 Hypertensive chronic kidney disease with stage 1 through stage 4 chronic kidney disease, or unspecified chronic kidney disease; Z86.0100 Personal history of colon polyps, unspecified; Z85.038 Personal history of other malignant neoplasm of large intestine; Z90.49 Acquired absence of other specified parts of digestive tract; D12.0 Benign neoplasm of cecum
CPT/HCPCS: 45385; 45380; 45381; 88305; J2405

== ENCOUNTER → 2024-12-13 | Outpatient (CLI) | payer MEDICARE, SELFPAY ==
[2024-12-13 11:28] LABS: Hematocrit 39.9 % (40-54); Hemoglobin 13.5 g/dL (13.0-16.5); Mean Corp Hgb Conc 33.8 g/dL (32-36); Mean Corpuscular Volume 99.8 fL (80-94); Mean Platelet Vol. 11.3 fl (6.2-12.0); Platelet Count 160 K/mm3 (150-450); RBC Distribution Width CV 13.1 % (11.6-14.6); RBC Distribution Width SD 47.6 fl (35.1-43.9); Red Blood Count 4.00 M/mm3 (4.6-6.2); White Blood Count 4.0 K/mm3 (4.4-11.0)
[2024-12-13 11:58] LABS: PTHIN 66 pg/mL (11-61)
[2024-12-13 11:59] LABS: Albumin, Serum 4.3 g/dL (3.4-4.8); Anion Gap 12 (5-15); BUN 21 mg/dL (4-19); BUN/Creat Ratio 14.5 RATIO (10-20); Calcium,Total 9.5 mg/dL (7.6-11.0); Carbon Dioxide 23.0 mmol/L (21.0-32.0); Chloride 101 mmol/L (98-108); Glucose 167 mg/dL (70-99); Potassium 3.9 mmol/L (3.3-5.1)
[2024-12-13 12:51] LABS: Creatinine, Urine (random) 122.00 mg/dL (39.00-259.00); Protein, Urine (Random) 17.1 mg/dL (0.0-12.0); Protein:Creat Ratio 140 mg/g CRE (0-200)
== END | disposition home or self-care (01) ==
LOC: LAB 10:55
PROVIDERS: PCP Family Medicine Geriatric Medicine; Referring Provider Internal Medicine Nephrology; Visit Provider Internal Medicine Nephrology
DX: E11.22 Type 2 diabetes mellitus with diabetic chronic kidney disease (principal); N18.31 Chronic kidney disease, stage 3a
CPT/HCPCS: 36415; 80069; 82570; 83970; 84156; 85027

== ENCOUNTER → 2025-01-23 | Outpatient (CLI) | payer MEDICARE, SELFPAY ==
[2025-01-23 12:24] LABS: Hematocrit 42.1 % (40-54); Hemoglobin 14.6 g/dL (13.0-16.5); Immature Granulocytes Count 0.010 X10^3/uL (0.0-0.0); Mean Corp Hgb Conc 34.7 g/dL (32-36); Mean Corpuscular Volume 97.5 fL (80-94); Mean Platelet Vol. 11.8 fl (6.2-12.0); NRBC Flagged by Analyzer 0 % (0-5); Platelet Count 147 K/mm3 (150-450); RBC Distribution Width CV 12.4 % (11.6-14.6); RBC Distribution Width SD 45.2 fl (35.1-43.9); Red Blood Count 4.32 M/mm3 (4.6-6.2); White Blood Count 3.9 K/mm3 (4.4-11.0)
[2025-01-23 13:05] LABS: AST(SGOT) 27 U/L (<=37); Alanine Aminotransfer ALT/SGPT 25 U/L (<=46); Albumin, Serum 4.8 g/dL (3.4-4.8); Alkaline Phosphatase 112 U/L (40-129); Anion Gap 11 (5-15); BUN 17 mg/dL (4-19); BUN/Creat Ratio 11.0 RATIO (10-20); Calcium,Total 10.2 mg/dL (7.6-11.0); Carbon Dioxide 25.7 mmol/L (21.0-32.0); Chloride 104 mmol/L (98-108); Cholesterol 128 mg/dL (<=200); Globulin 2.8 g/dL (2.2-4.2); Glucose 116 mg/dL (70-99); Low Density Lipoprotein Calc. 61 mg/dL; Potassium 4.2 mmol/L (3.3-5.1); Triglycerides 105 mg/dL; Very Low Density Lipoprotein 21 mg/dL (5-40); Vitamin D,25 Hydroxy 31.3 ng/mL (30-100); cholesterol:hdl ratio screen 2.69
== END | disposition home or self-care (01) ==
LOC: LAB 11:32
PROVIDERS: PCP Family Medicine Geriatric Medicine; Referring Provider Family Medicine Geriatric Medicine; Visit Provider Family Medicine Geriatric Medicine
DX: E78.5 Hyperlipidemia, unspecified (principal); E11.65 Type 2 diabetes mellitus with hyperglycemia; R53.83 Other fatigue
CPT/HCPCS: 36415; 80053; 80061; 82306; 83036; 84443; 85025

== ENCOUNTER → 2025-01-26 | Outpatient (CLI) | payer MEDICARE, SELFPAY ==
--- NOTE | 2025-01-26 10:47 | RAD_ITS ---
EXAM: XR Cervical Spine Flexion/Extension Only, 2 or 3 Views CLINICAL INDICATION: LOW BACK PAIN TECHNIQUE: Lateral flexion/extension views of the cervical spine. COMPARISON: No relevant prior studies available. FINDINGS: VERTEBRAE: Moderate endplate degenerative changes, disc degeneration and anterior spurring of L2-S1, greater in the lower aspect. No acute fracture. Normal alignment. No instability. DISC SPACES: No acute findings. No significant narrowing. SOFT TISSUES: Unremarkable. RAD/L/S Spine Min 4 Views IMPRESSION: Degenerative changes as above. Reading Location: [facility]
== END | disposition home or self-care (01) ==
LOC: RAD 10:45
PROVIDERS: PCP Family Medicine Geriatric Medicine; Referring Provider Family Medicine Geriatric Medicine; Visit Provider Family Medicine Geriatric Medicine
DX: M54.50 Low back pain, unspecified (principal)
CPT/HCPCS: 72110